=== PATIENT | male | born 1945 | race Caucasian/White ===

== ENCOUNTER 2017-11-06 18:02 | Inpatient (IN) ==
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
[2017-11-06 20:09] LABS: Albumin Level 3.3 gm/dL (3.4-5.0); Albumin/Globulin Ratio 0.7 (1.1-1.8); Anion Gap 10.2 mEq/L (5-15); Basophils # 0.1 K/mm3 (0-0.2); Basophils % 0.6 % (0.1-2.0); Bilirubin,Total 0.3 mg/dL (0.2-1.0); Calcium 9.1 mg/dL (8.5-10.1); Eosinophils # 0.6 K/mm3 (0.0-0.4); Eosinophils % 7.1 % (0.1-12.0); Globulin 4.7 gm/dl (1.3-3.2); Hematocrit 39.6 % (42.0-52.0); Hemoglobin 12.3 g/dL (14.1-18.0); Lymphocytes # 2.2 K/mm3 (0.7-4.5); Lymphocytes % 27.5 K/mm3 (10-50); Mean Corpuscular Hemoglobin 29.8 pg (27.0-31.2); Mean Corpuscular Volume 96.3 fl (80-94); Mean Platelet Volume 8.5 fl (7.4-10.4); Monocytes # 0.5 K/mm3 (0.1-1.0); Monocytes % 6.5 % (1.7-9.3); Neutrophils # 4.6 K/mm3 (1.8-7.8); Neutrophils % 58.4 % (37.0-80.0); Platelet Count 255 K/mm3 (142-424); Potassium 4.2 mmoL/L (3.5-5.1); Red Blood Count 4.12 M/mm3 (4.60-6.20); Red Cell Distribution Width 14.2 % (11.5-17.5); White Blood Count 7.9 K/mm3 (4.8-10.8)
--- NOTE | 2017-11-07 07:26 | Pharmacy Consult Notes ---
[facility] Pharmacy VTE Monitoring - Patient Demographics Admission date: 11/06/17 Report Date: 11/07/17 Time: 07:25 Allergies/Adverse Reactions: Patient Allergies No Known Drug Allergies Allergy (Unknown, Verified 11/06/17 18:27) -- Height: 1.8 m Weight: 102.597 kg Patient Problems: Current Active Problems Diabetic foot infection (Acute) - VTE Risk Labs: VTE Related Lab Results Hgb 12.3 g/dL (14.1-18.0) L 11/06/17 19:13 Hct 39.6 % (42.0-52.0) L 11/06/17 19:13 Plt Count 255 K/mm3 (142-424) 11/06/17 19:13 BUN 20 mg/dL (7-18) H 11/06/17 19:13 Creatinine 1.23 mg/dL (0.70-1.30) 11/06/17 19:13 Estimated Creat Clear 81 mL/min (0-300) 11/06/17 19:13 Was VTE Risk Assessment Performed: Yes VTE Score: 7 VTE Risk Level: Moderate Risk - Prophylaxis VTE Prophylaxis Ordered?: Yes (APPLY TO UNAFFECTED LEG) Types of VTE Prophylaxis: TEDS Knee High Location of Applied Device: Right Leg - VTE Diagnosis Confirmed Treatment or plan recommended: Continue Current Treatment
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
--- NOTE | 2017-11-07 10:31 | Pharmacy Consult Notes ---
- Pharmacy Consult Date: 11/07/17 Time: 10:30 Referring provider: DR. CHOUDHARY Reason for Consult:: VANCOMYCIN DOSING Allergies and ADEs:: Allergies Allergy/AdvReac Type Severity Reaction Status Date / Time No Known Drug Allergies Allergy Unknown -- Verified 11/06/17 18:27 Home Medications:: Home Medications Medication Instructions Recorded Confirmed Type aspirin 81 mg chewable tablet 81 mg PO DAILY 08/26/17 11/07/17 History multivitamin tablet 1 tab PO DAILY 08/26/17 11/07/17 History niacin 500 mg tablet 500 mg PO DAILY 08/26/17 11/07/17 History tamsulosin 0.4 mg capsule 0.4 mg PO DAILY 08/26/17 11/07/17 History Carbidopa/Levodopa [Carbidopa-Levo 1 tab PO HS 11/06/17 11/07/17 History 10-100 mg Odt] Carvedilol [Carvedilol 25mg Tab] 37.5 mg PO BID 11/06/17 11/06/17 History Clopidogrel Bisulfate [Plavix 75mg 75 mg PO DAILY 11/06/17 11/07/17 History Tab] Fenofibrate Nanocrystallized 145 mg PO DAILY 11/06/17 11/06/17 History [Tricor] Fluticasone/Vilanterol [Breo 1 inh INHALATION DAILY 11/06/17 11/07/17 History Ellipta 100-25 Mcg INH] Furosemide [Furosemide 80mg Tab] 80 mg PO DAILY 11/06/17 11/07/17 History Gabapentin [Neurontin 600mg 600 mg PO QID 11/06/17 11/06/17 History tablet] Insulin Glargine,Hum.rec.anlog 35 units SQ HS 11/06/17 11/06/17 History [Insulin Glargine 100 Units/mL 3mL flexpen] Insulin Lispro Protamin/Lispro 45 unit SQ DAILY 11/06/17 11/07/17 History [Humalog Mix 75/25 100 Units/mL 10mL Vial] Isosorbide Mononitrate [Imdur 30mg 30 mg PO DAILY 11/06/17 11/07/17 History ER tablet] Olmesartan Medoxomil 40 mg PO DAILY 11/06/17 11/07/17 History Simvastatin 40 mg PO DAILY 11/06/17 11/07/17 History Height: 1.8 m Weight: 102.597 kg Laboratory Results:: SRCR=1.23 Medical History: Reports:: Chronic Obstructive Pulmonary Disease (COPD), Coronary Artery Disease, Diabetes Mellitus Type 2, Hyperlipidemia, Hypertension , Internal Pacemaker, Myocardial Infarction Denies:: Cancer, Diabetes Mellitus Type 1, MRSA, Seizures Assessment and Plan (1) Cellulitis of left foot Current visit: Yes Status: Acute Category: Medical Code(s): L03.116 - Cellulitis of left lower limb (2) Diabetic foot infection Current visit: Yes Status: Acute Category: Medical Code(s): E11.628 - Type 2 diabetes mellitus with other skin complications; L08.9 - Local infection of the skin and subcutaneous tissue, unspecified (3) Diabetic ulcer of left great toe Current visit: Yes Status: Acute Category: Medical Code(s): E11.621 - Type 2 diabetes mellitus with foot ulcer; L97.529 - Non-pressure chronic ulcer of other part of left foot with unspecified severity - Assessment and plan all Dx Assessment and Plan for all problems:: BASED ON PATIENT FACTORS, RECOMMEND VANCOMYCIN 2 GM IV ONCE, FOLLOWED BY VANCOMYCIN 1750 MG IV Q18H. PHARMACY WILL FOLLOW DAILY AND ADJUST APPROPRIATE.
--- NOTE | 2017-11-07 11:03 | Progress Note ---
[facility] Anesthesia Record Part I Intake, IV Amount: 700 Estimated blood loss (mL): 10 Urine output (mL): 0 Blood Products used (#): none Blood Pressure: 111/53 SaO2: 96 Pulse Rate: 70 Respiratory Rate: 18 Temperature: 98.0 F Patient is:: Drowsy, Nasal O2, Stable Stable to PACU at:: 11:02
--- NOTE | 2017-11-07 11:03 | Operative Note ---
Date of procedure: 11/07/17 Pre-op Diagnosis:: Left foot cellulitis Left hallux osteomyelitis Left hallux, sub 1st metatarsal DM ulcer Post-op Diagnosis:: Left foot cellulitis Left hallux osteomyelitis Left hallux, sub 1st metatarsal DM ulcer Procedure performed:: Left foot incision and drainage Left partial hallux amputation Left sub 1st metatarsal ulcer debridement Surgeon:: Padmini Randle DPM RISK ENGINEER:: Hermes Lopez Anesthesia: LMA Estimated blood loss (mL): 10 Clinical Note:: Left foot cellulitis, left hallux and sub 1st metatarsal DM ulcer, hallux osteomyelitis: There were 3 wounds noted to the distal and plantar hallux, sub-first metatarsal. Utilizing a 15 blade the ulcers were debrided. Purulent drainage noted. Distal tip of hallux ulcer probed to bone. Edema, erythema extending past 1st MPJ. Pain to palpation. Palpable pedal pulses. CFT < 4 seconds. No calf or thigh pain b/l. Radiographs of the left foot taken 11/07/17. X-rays show cortical erosion to distal phalanx consistent with osteomyelitis. We discussed conservative versus surgical treatment options. Conservative treatment options include local wound care, IV antibiotics to manage the cellulitis but surgical intervention recommended to drainage infection and remove infected bone. We discussed surgical intervention for amputation of the left hallux, possible partial 1st metatarsal. Patient understands that there is a chance that the foot may change shape after surgery. Patient also understands that they could have wound healing complications including delayed healing and infection. We discussed that if the wound does not heal, it is possible that they may need a more proximal amputation and could result in further loss of digits, loss of partial foot or loss of leg. We discussed the risks and benefits in great detail. Other surgical risks include: prolonged pain and swelling, further infection requiring oral or IV antibiotics, delay in healing of soft tissue or bone, nerve or blood vessel damage, CRPS/RSD, DVT, anesthesia complications, and even . Operative findings:: Purulence noted to tip of left hallux, where there were 3 ulcers which probed to distal phalanx. Hallux toenail infected and hanging off. Sub 1st metatarsal ulcer, granular wound base with no purulence noted. Post debridement measures 2.1 x 1.1cm and did not probe thru sub q. Operative note:: On this date and time patient was deemed an appropriate surgical candidate. With informed consent signed, the patient was taken to the operating theater. The patient was positioned supine. MAC anesthesia was induced. No tourniquet used. Pre-op right left foot block given with 15 cc 0.5% marcaine plain. Left foot incision and drainage and hallux partial amputation: The left extremity was prepped and draped in normal sterile fashion. Attention was directed to the left hallux where 3 distal wound were noted. Cellulitis is noted extending to the MPJ. Wound probed directly to the bone and purulent drainage was coming from the wound site. A wound culture was taken. A fish mouth incision was mapped out. Utilizing a 15 blade dissection was carried down sharply to the level of the bone around the distal phalanx which was disarticulated from the proximal phalanx. The distal phalanx bone was soft and crumbly and had a slight malodor to it. Portion of it was cut and sent for bone culture and the other part was sent for bone biopsy for pathology. Attention was then directed to the proximal phalanx. Utilizing power resection a small piece of the proximal phalanx head with transected and sent for a clean proximal margin to path and culture. Next 3 L of bacitracin irrigation was used to flush the wound and pulse lavage. The wound was reexplored and no further signs of infection noted. At this point the double-ended rasp was used to smooth down the edges of the bone so that there were no sharp prominences. Bleeding controlled. 3-0 Prolene was used to close skin in an interrupted simple suture fashion. The wounds were cleansed. Left sub 1st metatarsal wound debridement: Attention was directed to the plantar medial aspect of the left 1st metatarsal where an ulcer was noted. Utilizing a 15 blade the callus surrounding the wound was sharply debrided. Utilizing a 15 blade and curette the wound was debrided sharply excisionally through skin into the subcu layer. Fibrotic tissue and biofilm was removed. Good bleeding was noted. Granular base was noted. Post debridement the wound measured 2.1x1.1 cm and did not probe thru subq. It did not probe to deep fasica or bone. No purulence or signs of infection. Betadine dry sterile dressing was then applied to the left foot 15 cc 0.5% marcaine plain was injected at the end of the case. Betadine soaked xeroform, dry sterile dressing was then applied to the left foot. The patient was awoken from anesthesia and transferred to recovery with vital signs stable and neurovascular status intact. Materials: 3-0 Prolene Discharge/Plan: Transfer back to the floor. Patient is to maintain dressing clean dry and intact. Elevate on two pillows. Continue antibiotics. Partial weight bearing to the left lower extremity with DME assistance (walker) . Obtain post op films, left foot, 3 views. Plan for dressing change tomorrow by myself. Tourniquet time (min): 0 Condition: stable Disposition: floor Specimens:: Left foot wound culture Left distal phalanx bone path Left distal phalanx bone culture Left proximal margin bone path Left proximal phalanx bone culture Complications:: None
--- NOTE | 2017-11-07 11:04 | Progress Note ---
[facility] Anesthesia Record Part II Discharge Time: 11:32 Destination: Medical Surgical Department PACU nurse assessment reviewed?: Yes Patient Condition:: Good Anesthesia Complications:: None
[2017-11-08 06:01] LABS: Basophils # 0.1 K/mm3 (0-0.2); Basophils % 0.6 % (0.1-2.0); Eosinophils # 0.1 K/mm3 (0.0-0.4); Eosinophils % 1.6 % (0.1-12.0); Hematocrit 35.1 % (42.0-52.0); Hemoglobin 10.9 g/dL (14.1-18.0); Lymphocytes # 2.1 K/mm3 (0.7-4.5); Lymphocytes % 24.5 K/mm3 (10-50); Mean Corpuscular HGB Conc 31.2 g/dL (31.8-35.4); Mean Corpuscular Hemoglobin 30.5 pg (27.0-31.2); Mean Corpuscular Volume 97.7 fl (80-94); Mean Platelet Volume 8.3 fl (7.4-10.4); Monocytes # 0.7 K/mm3 (0.1-1.0); Monocytes % 7.7 % (1.7-9.3); Neutrophils # 5.7 K/mm3 (1.8-7.8); Neutrophils % 65.6 % (37.0-80.0); Platelet Count 208 K/mm3 (142-424); Red Blood Count 3.59 M/mm3 (4.60-6.20); Red Cell Distribution Width 14.3 % (11.5-17.5); White Blood Count 8.7 K/mm3 (4.8-10.8)
--- NOTE | 2017-11-08 08:42 | Progress Note ---
Internal Medicine - PN: Subj *Date: 11/08/17 *Time: 08:40 Exam Vital signs and Labs for Last 24 Hours: Temp Pulse Resp BP Pulse Ox 97.9 F 70 16 128/74 93 L 11/08/17 08:06 11/08/17 08:06 11/08/17 08:06 11/08/17 08:06 11/08/17 08:06 Laboratory Results - last 24 hr 11/07/17 17:13: POC Glucose 364 H* 11/07/17 20:05: POC Glucose 327 H* 11/07/17 21:10: ESR 83 H 11/07/17 21:10: C-Reactive Protein 2.7 H 11/08/17 05:55: WBC 8.7, RBC 3.59 L, Hgb 10.9 L, Hct 35.1 L, MCV 97.7 H, MCH 30.5, MCHC 31.2 L, RDW 14.3, Plt Count 208, MPV 8.3, Neut % (Auto) 65.6, Lymph % (Auto) 24.5, [place] % (Auto) 7.7, Eos % (Auto) 1.6, Baso % (Auto) 0.6, Neut # ( Auto) 5.7, Lymph # (Auto) 2.1, [place] # (Auto) 0.7, Eos # (Auto) 0.1, Baso # (Auto ) 0.1 11/08/17 06:23: POC Glucose 218 H I & O for Last 24 hours: Intake & Output 11/05/17 11/06/17 11/07/17 11/08/17 11:59 11:59 11:59 11:59 Intake Total 1750 / 1750 1965 / 1965 Output Total 820 / 820 1500 / 1500 Balance 930 / 930 465 / 465 Weight 226 lb 3 oz Microbiology Reports for the Last 24 Hours: Microbiology 11/07/17 Unknown Toe,Left Great Gram Stain - Final 11/07/17 Unknown Toe,Left Great Wound Culture - Preliminary Gram Positive Cocci 11/07/17 07:30 Foot,Left Gram Stain - Final 11/07/17 07:30 Foot,Left Wound Culture - Preliminary Gram Positive Cocci 11/06/17 Unknown Foot,Left Gram Stain - Final 11/06/17 Unknown Foot,Left Wound Culture - Preliminary Gram Positive Cocci 11/06/17 19:31 Blood Blood Culture - Preliminary NO GROWTH AFTER 24 HOURS - Constitutional no acute distress - *Routine HEENT Exam Head: Present: normocephalic Eye: Present: PERRL ENT: Present: mucous membranes moist - *Routine Respiratory Exam Present: CTA bilaterally - *Routine Cardiovascular Exam Present: RRR Comments: pacemaker - *Routine Abdominal Exam Present: soft, normoactive bowel sounds - *Routine Extremities Exam Comments: Dressing to left foot - *Routine Skin Exam Comments: Dressing to left foot - *Routine Neurological Exam Present: alert, oriented X3, CN II-XII intact - Routine Psychiatric Exam Present: normal affect, normal thought process Assessment and Plan (1) Cellulitis of left foot Current visit: Yes Status: Acute Category: Medical Code(s): L03.116 - Cellulitis of left lower limb (2) Diabetic foot infection Current visit: Yes Status: Acute Category: Medical Code(s): E11.628 - Type 2 diabetes mellitus with other skin complications; L08.9 - Local infection of the skin and subcutaneous tissue, unspecified (3) Diabetic ulcer of left great toe Current visit: Yes Status: Acute Category: Medical Code(s): E11.621 - Type 2 diabetes mellitus with foot ulcer; L97.529 - Non-pressure chronic ulcer of other part of left foot with unspecified severity - Assessment and plan all Dx Assessment and Plan for all problems:: Waiting for C&S wants resulted patient will be going home with home health for dressing and IV antibiotics
--- NOTE | 2017-11-08 09:59 | Progress Note ---
Subjective Date: 11/08/17 Time: 08:45 Principal diagnosis: Left osteomyelitis, cellulitis Interval history: Pain is resting comfortably in bed. He denies pain. He denies N/V, F/C, SOB/ CP. PN: Obj Ex Vital signs: Temp Pulse Resp BP Pulse Ox 97.9 F 70 16 128/74 93 L 11/08/17 08:06 11/08/17 08:06 11/08/17 08:06 11/08/17 08:06 11/08/17 08:43 - Constitutional no acute distress - Detailed Lower Extremity Exam Foot/Toes: Left amputation (left partial hallux amp), Left erythema (improving) , Left swelling (improving) Comments: Dressing C/D/I, no strike thru noted. Dressing removed. Sutures intact to amputation site. Sub 1st met ulcer evaluated. Granular base was noted. The wound measured 2.1x1.1 cm and did not probe thru subq. It did not probe to deep fasica or bone. No purulence or signs of infection. Saline used to cleanse wound, betadine used to dry it. Xeroform dry sterile dressing was then applied to the left foot. No pain to palpation. No calf or thigh pain b/l. Skin temp less warm on the left. Decreased light touch sensation, back to baseline. Progress Note: A&P (1) Cellulitis of left foot Status: Acute Current Visit: Yes (2) Diabetic foot infection Status: Acute Current Visit: Yes (3) Diabetic ulcer of left great toe Status: Acute Current Visit: Yes (4) Chronic osteomyelitis of toe of left foot Status: Acute Current Visit: Yes Assessment and Plan for All Diagnoses:: S/p left partial hallux amputation, debridement of left 1st sub metatarsal ulcer on 11/07/17: POD # 1 Left hallux OM, sub 1st met DM ulcer: Dressing removed. Sutures intact to amputation site. Sub 1st met ulcer evaluated. Granular base was noted. The wound measured 2.1x1.1 cm and did not probe thru subq. It did not probe to deep fasica or bone. No purulence or signs of infection. Saline used to cleanse wound, betadine used to dry it. Xeroform dry sterile dressing was then applied to the left foot. Discharge/Plan: 1. Maintain dressing clean dry and intact to left foot 2. PWB to left heel in flat post op shoe with walker (patient has walker) 3. Elevate on one pillow 4. Continue IV Abx-Vanco, Clinda x 4 weeks 5. Plan for dressing change 11/13/[address] Randle @ [id number]
--- NOTE | 2017-11-08 10:44 | Pharmacy Consult Notes ---
- Pharmacy Consult Date: 11/08/17 Time: 10:43 Referring provider: DR. CHOUDHARY Reason for Consult:: VANCOMYCIN TROUGH LEVEL Allergies and ADEs:: Allergies Allergy/AdvReac Type Severity Reaction Status Date / Time No Known Drug Allergies Allergy Unknown -- Verified 11/06/17 18:27 Home Medications:: Home Medications Medication Instructions Recorded Confirmed Type aspirin 81 mg chewable tablet 81 mg PO DAILY 08/26/17 11/07/17 History multivitamin tablet 1 tab PO DAILY 08/26/17 11/07/17 History tamsulosin 0.4 mg capsule 0.4 mg PO DAILY 08/26/17 11/07/17 History Carbidopa/Levodopa [Carbidopa-Levo 1 tab PO HS 11/06/17 11/07/17 History 10-100 mg Odt] Carvedilol [Carvedilol 25mg Tab] 37.5 mg PO BID 11/06/17 11/06/17 History Clopidogrel Bisulfate [Plavix 75mg 75 mg PO DAILY 11/06/17 11/07/17 History Tab] Fenofibrate Nanocrystallized 145 mg PO DAILY 11/06/17 11/06/17 History [Tricor] Fluticasone/Vilanterol [Breo 1 inh INHALATION DAILY 11/06/17 11/07/17 History Ellipta 100-25 Mcg INH] Furosemide [Furosemide 80mg Tab] 80 mg PO DAILYP PRN 11/06/17 11/07/17 History Insulin Glargine,Hum.rec.anlog 35 units SQ HS 11/06/17 11/06/17 History [Insulin Glargine 100 Units/mL 3mL flexpen] Insulin Lispro Protamin/Lispro 45 unit SQ DAILY 11/06/17 11/07/17 History [Humalog Mix 75/25 100 Units/mL 10mL Vial] Isosorbide Mononitrate [Imdur 30mg 30 mg PO DAILY 11/06/17 11/07/17 History ER tablet] Olmesartan Medoxomil 40 mg PO DAILY 11/06/17 11/07/17 History Simvastatin 40 mg PO DAILY 11/06/17 11/07/17 History Height: 1.8 m Weight: 102.597 kg Laboratory Results:: Laboratory Results - last 24 hr 11/07/17 17:13: POC Glucose 364 H* 11/07/17 20:05: POC Glucose 327 H* 11/07/17 21:10: ESR 83 H 11/07/17 21:10: C-Reactive Protein 2.7 H 11/08/17 05:55: WBC 8.7, RBC 3.59 L, Hgb 10.9 L, Hct 35.1 L, MCV 97.7 H, MCH 30.5, MCHC 31.2 L, RDW 14.3, Plt Count 208, MPV 8.3, Neut % (Auto) 65.6, Lymph % (Auto) 24.5, [place] % (Auto) 7.7, Eos % (Auto) 1.6, Baso % (Auto) 0.6, Neut # ( Auto) 5.7, Lymph # (Auto) 2.1, [place] # (Auto) 0.7, Eos # (Auto) 0.1, Baso # (Auto ) 0.1 11/08/17 06:23: POC Glucose 218 H 11/08/17 08:25: Vancomycin Trough 14.6 Medical History: Reports:: Chronic Obstructive Pulmonary Disease (COPD), Coronary Artery Disease, Diabetes Mellitus Type 2, Hyperlipidemia, Hypertension , Internal Pacemaker, Myocardial Infarction Denies:: Cancer, Diabetes Mellitus Type 1, MRSA, Seizures Assessment and Plan (1) Cellulitis of left foot Current visit: Yes Status: Acute Category: Medical Code(s): L03.116 - Cellulitis of left lower limb (2) Diabetic foot infection Current visit: Yes Status: Acute Category: Medical Code(s): E11.628 - Type 2 diabetes mellitus with other skin complications; L08.9 - Local infection of the skin and subcutaneous tissue, unspecified (3) Diabetic ulcer of left great toe Current visit: Yes Status: Acute Category: Medical Code(s): E11.621 - Type 2 diabetes mellitus with foot ulcer; L97.529 - Non-pressure chronic ulcer of other part of left foot with unspecified severity (4) Chronic osteomyelitis of toe of left foot Current visit: Yes Status: Acute Category: Medical Code(s): M86.672 - Other chronic osteomyelitis, left ankle and foot - Assessment and plan all Dx Assessment and Plan for all problems:: BASED ON VANCOMYCIN TROUGH LEVEL AND PATIENT FACTORS, WOULD RECOMMEND CONTINUING VANCOMYCIN 1750 MG IV Q18H. SINCE PATIENT IS BEING DISCHARGED TO A CORRECTION, PATIENT WILL BE DISCHARGED ON VANCOMYCIN 2 GM IV Q24H.
[2017-11-08 11:38] VITALS: BP 141/73
--- NOTE | 2017-11-08 13:45 | Discharge Summary ---
General - General Admission date: 11/06/17 Discharge date: 11/08/17 HPI HPI: Mr. Servin is a 71-year-old DM male who presented to the emergency room from Dr Nugent's office 11/06/17, where he presented with left toe pain, swelling and redness, onset approximately 2 weeks ago, gradually getting worse. Patient initially thought that he had an ingrown toenail, but the pain and redness getting worse. Patient unable to bear weight on the left foot any longer. He has noticed purulence drainage. Hospital Course Hospital Course: Will dc home with home health for dressing changes and iv antibotics. per [facility] note:S/p left partial hallux amputation, debridement of left 1st sub metatarsal ulcer on 11/07/17: POD # 1 Left hallux OM, sub 1st met DM ulcer: Dressing removed. Sutures intact to amputation site. Sub 1st met ulcer evaluated. Granular base was noted. The wound measured 2.1x1.1 cm and did not probe thru subq. It did not probe to deep fasica or bone. No purulence or signs of infection. Saline used to cleanse wound, betadine used to dry it. Xeroform dry sterile dressing was then applied to the left foot. Discharge/Plan: 1. Maintain dressing clean dry and intact to left foot 2. PWB to left heel in flat post op shoe with walker (patient has walker) 3. Elevate on one pillow 4. Continue IV Abx-Vanco, Clinda x 4 weeks 5. Plan for dressing change 11/13/[address] Randle @ 0930 Objective Vital signs: Temp Pulse Resp BP Pulse Ox 98.1 F 70 18 141/73 90 L 11/08/17 11:37 11/08/17 11:37 11/08/17 11:37 11/08/17 11:37 11/08/17 11:37 no acute distress - *Routine HEENT Exam Head: Present: normocephalic Eye: Present: PERRL ENT: Present: mucous membranes moist - *Routine Respiratory Exam Present: CTA bilaterally - *Routine Cardiovascular Exam Present: RRR - *Routine Abdominal Exam Present: soft, normoactive bowel sounds - Routine Back/Spine/Pelvis Exam Back/Spine: Present: CVA tenderness - *Routine Skin Exam Comments: dressing to left foot - *Routine Neurological Exam Present: alert, oriented X3, CN II-XII intact - Routine Psychiatric Exam Present: normal affect, normal thought process Results Labs on day of discharge: Labs from last 24 hours 11/08/17 11/08/17 11/08/17 08:25 06:23 05:55 WBC 8.7 RBC 3.59 L Hgb 10.9 L Hct 35.1 L MCV 97.7 H MCH 30.5 MCHC 31.2 L RDW 14.3 Plt Count 208 MPV 8.3 Neut % (Auto) 65.6 Lymph % (Auto) 24.5 [place] % (Auto) 7.7 Eos % (Auto) 1.6 Baso % (Auto) 0.6 Neut # (Auto) 5.7 Lymph # (Auto) 2.1 [place] # (Auto) 0.7 Eos # (Auto) 0.1 Baso # (Auto) 0.1 ESR POC Glucose 218 H C-Reactive Protein Vancomycin Trough 14.6 11/07/17 11/07/17 11/07/17 21:10 21:10 20:05 WBC RBC Hgb Hct MCV MCH MCHC RDW Plt Count MPV Neut % (Auto) Lymph % (Auto) [place] % (Auto) Eos % (Auto) Baso % (Auto) Neut # (Auto) Lymph # (Auto) [place] # (Auto) Eos # (Auto) Baso # (Auto) ESR 83 H POC Glucose 327 H* C-Reactive Protein 2.7 H Vancomycin Trough 11/07/17 17:13 WBC RBC Hgb Hct MCV MCH MCHC RDW Plt Count MPV Neut % (Auto) Lymph % (Auto) [place] % (Auto) Eos % (Auto) Baso % (Auto) Neut # (Auto) Lymph # (Auto) [place] # (Auto) Eos # (Auto) Baso # (Auto) ESR POC Glucose 364 H* C-Reactive Protein Vancomycin Trough Preliminary micro results at discharge 11/07/17 Unknown Surgical Biopsy Culture - Preliminary Toe,Left Great NO GROWTH AFTER 24 HOURS 11/07/17 Unknown Surgical Biopsy Culture - Preliminary Toe,Left Great NO GROWTH AFTER 24 HOURS 11/07/17 Unknown Wound Culture - Preliminary Toe,Left Great Gram Positive Cocci 11/07/17 07:30 Wound Culture - Preliminary Foot,Left Gram Positive Cocci 11/06/17 Unknown Wound Culture - Preliminary Foot,Left Gram Positive Cocci 11/06/17 19:31 Blood Culture - Preliminary Blood NO GROWTH AFTER 24 HOURS DS: Diagnosis - Discharge Diagnosis (1) Cellulitis of left foot Status: Acute (2) Diabetic foot infection Status: Acute (3) Diabetic ulcer of left great toe Status: Acute Discharge Plan - Patient Discharge Instructions ACTIVITY: Continue current activity DIET: continue same diet Patient Instructions: DI for Laceration Repair - Follow up Plan Follow up with: Echo Horner APRN [Primary Care Provider] - 1 week Padmini Randle DPM [Physician] - 1 week Disposition: Home, Self-[facility] Medications: Home Medications Medication Instructions Recorded Confirmed Type aspirin 81 mg chewable tablet 81 mg PO DAILY 08/26/17 11/07/17 History multivitamin tablet 1 tab PO DAILY 08/26/17 11/07/17 History tamsulosin 0.4 mg capsule 0.4 mg PO DAILY 08/26/17 11/07/17 History Carbidopa/Levodopa [Carbidopa-Levo 1 tab PO HS 11/06/17 11/07/17 History 10-100 mg Odt] Carvedilol [Carvedilol 25mg Tab] 37.5 mg PO BID 11/06/17 11/06/17 History Clopidogrel Bisulfate [Plavix 75mg 75 mg PO DAILY 11/06/17 11/07/17 History Tab] Fenofibrate Nanocrystallized 145 mg PO DAILY 11/06/17 11/06/17 History [Tricor] Fluticasone/Vilanterol [Breo 1 inh INHALATION DAILY 11/06/17 11/07/17 History Ellipta 100-25 Mcg INH] Furosemide [Furosemide 80mg Tab] 80 mg PO DAILYP PRN 11/06/17 11/07/17 History Insulin Glargine,Hum.rec.anlog 35 units SQ HS 11/06/17 11/06/17 History [Insulin Glargine 100 Units/mL 3mL flexpen] Insulin Lispro Protamin/Lispro 45 unit SQ DAILY 11/06/17 11/07/17 History [Humalog Mix 75/25 100 Units/mL 10mL Vial] Isosorbide Mononitrate [Imdur 30mg 30 mg PO DAILY 11/06/17 11/07/17 History ER tablet] Olmesartan Medoxomil 40 mg PO DAILY 11/06/17 11/07/17 History Simvastatin 40 mg PO DAILY 11/06/17 11/07/17 History Prescriptions/Medication Reconciliation: New Clindamycin HCl [Clindamycin 300mg Cap] 600 mg PO TID 28 Days capsule Continue tamsulosin 0.4 mg capsule 0.4 mg PO DAILY aspirin 81 mg chewable tablet 81 mg PO DAILY gabapentin 600 mg tablet 600 mg PO QID #120 tab multivitamin tablet 1 tab PO DAILY Clopidogrel Bisulfate [Plavix 75mg Tab] 75 mg PO DAILY Fenofibrate Nanocrystallized [Tricor] 145 mg PO DAILY Carbidopa/Levodopa [Carbidopa-Levo 10-100 mg Odt] 1 tab PO HS Simvastatin 40 mg PO DAILY Furosemide [Furosemide 80mg Tab] 80 mg PO DAILYP PRN PRN Reason: FLUID Carvedilol [Carvedilol 25mg Tab] 37.5 mg PO BID Olmesartan Medoxomil 40 mg PO DAILY Isosorbide Mononitrate [Imdur 30mg ER tablet] 30 mg PO DAILY Insulin Glargine,Hum.rec.anlog [Insulin Glargine 100 Units/mL 3mL flexpen] 35 units SQ HS Fluticasone/Vilanterol [Breo Ellipta 100-25 Mcg INH] 1 inh INHALATION DAILY Insulin Lispro Protamin/Lispro [Humalog Mix 75/25 100 Units/mL 10mL Vial] 45 unit SQ DAILY No Action pen needle, diabetic 31 gauge x 12/18" See Dose Instructions .ROUTE .MEDSUPPLY #100 each
== END 2017-11-08 15:20 | disposition home or self-care (01) ==
LOC: ER 18:02 → 2ND 18:02 → OBSVTOIN 19:15 → 2ND 19:30
PROVIDERS: ADMIT Emergency Medicine; ATTEND Emergency Medicine

== ENCOUNTER → 2017-11-12 13:19 | Outpatient (REF) | payer MEDICARE, MEDICAID, SELFPAY | LOC: LAB 13:19 | PROVIDERS: Visit Provider Emergency Medicine | DX: Z45.2 Encounter for adjustment and management of vascular access device (principal); Z51.81 Encounter for therapeutic drug level monitoring | CPT/HCPCS: 80202 ==

== ENCOUNTER → 2017-11-13 16:35 | Outpatient (REF) | payer MEDICARE, MEDICAID, SELFPAY ==
[2017-11-13 16:53] LABS: Basophils # 0.1 K/mm3 (0-0.2); Eosinophils # 0.7 K/mm3 (0.0-0.4); Eosinophils % 9.3 % (0.1-12.0); Hematocrit 38.4 % (42.0-52.0); Lymphocytes # 2.4 K/mm3 (0.7-4.5); Lymphocytes % 31.9 K/mm3 (10-50); Mean Corpuscular HGB Conc 31.2 g/dL (31.8-35.4); Mean Corpuscular Hemoglobin 30.1 pg (27.0-31.2); Mean Corpuscular Volume 96.4 fl (80-94); Mean Platelet Volume 8.4 fl (7.4-10.4); Monocytes # 0.5 K/mm3 (0.1-1.0); Monocytes % 6.8 % (1.7-9.3); Neutrophils # 3.8 K/mm3 (1.8-7.8); Platelet Count 255 K/mm3 (142-424); Red Blood Count 3.98 M/mm3 (4.60-6.20); Red Cell Distribution Width 14.3 % (11.5-17.5); White Blood Count 7.5 K/mm3 (4.8-10.8)
[2017-11-13 17:06] LABS: Alanine Aminotransferase 18 U/L (12-78); Albumin Level 3.1 gm/dL (3.4-5.0); Albumin/Globulin Ratio 0.8 (1.1-1.8); Alkaline Phosphatase 46 U/L (46-116); Anion Gap 8.2 mEq/L (5-15); Aspartate Amino Transferase 26 U/L (15-37); Bilirubin,Total 0.3 mg/dL (0.2-1.0); Blood Urea Nitrogen 21 mg/dL (7-18); Carbon Dioxide 34 mmol/L (21.0-32.0); Chloride 104 mmol/L (98-107); Creatinine,Serum 1.17 mg/dL (0.70-1.30); Estimated Glomerular Filt Rate 62 ml/min (>60); GFR (African American) 75 ML/MIN (>60); Globulin 4.1 gm/dl (1.3-3.2); Glucose 215 mg/dL (74-106); Potassium 4.2 mmoL/L (3.5-5.1); Sodium 142 mmol/L (136-145); Total Protein,Serum 7.2 gm/dL (6.4-8.2)
[2017-11-13 17:14] LABS: Calcium 8.8 mg/dL (8.5-10.1)
[2017-11-13 18:47] LABS: Erythrocyte Sedimentation Rate 58 mm/hr (0-20)
== END ==
LOC: LAB 16:35
PROVIDERS: Visit Provider Emergency Medicine
DX: E11.621 Type 2 diabetes mellitus with foot ulcer (principal)
CPT/HCPCS: 80053; 85025; 85651

== ENCOUNTER → 2017-11-19 14:21 | Outpatient (REF) | payer MEDICARE, MEDICAID, SELFPAY ==
[2017-11-19 14:29] LABS: Basophils % 0.5 % (0.1-2.0); Eosinophils % 0.1 % (0.1-12.0); Hemoglobin 12.7 g/dL (14.1-18.0); Lymphocytes # 1.1 K/mm3 (0.7-4.5); Lymphocytes % 18.2 K/mm3 (10-50); Mean Corpuscular HGB Conc 31.9 g/dL (31.8-35.4); Mean Corpuscular Hemoglobin 30.3 pg (27.0-31.2); Mean Corpuscular Volume 95.1 fl (80-94); Mean Platelet Volume 8.8 fl (7.4-10.4); Monocytes # 0.5 K/mm3 (0.1-1.0); Monocytes % 8.4 % (1.7-9.3); Neutrophils # 4.6 K/mm3 (1.8-7.8); Neutrophils % 72.9 % (37.0-80.0); Platelet Count 216 K/mm3 (142-424); Red Blood Count 4.21 M/mm3 (4.60-6.20); Red Cell Distribution Width 14.7 % (11.5-17.5); White Blood Count 6.3 K/mm3 (4.8-10.8)
[2017-11-19 14:45] LABS: Alanine Aminotransferase 19 U/L (12-78); Albumin Level 3.3 gm/dL (3.4-5.0); Albumin/Globulin Ratio 0.8 (1.1-1.8); Alkaline Phosphatase 41 U/L (46-116); Anion Gap 14.5 mEq/L (5-15); Aspartate Amino Transferase 24 U/L (15-37); Bilirubin,Total 0.4 mg/dL (0.2-1.0); Blood Urea Nitrogen 22 mg/dL (7-18); Calcium 8.9 mg/dL (8.5-10.1); Carbon Dioxide 28 mmol/L (21.0-32.0); Chloride 95 mmol/L (98-107); Creatinine,Serum 1.18 mg/dL (0.70-1.30); Estimated Glomerular Filt Rate 61 ml/min (>60); GFR (African American) 74 ML/MIN (>60); Globulin 4.2 gm/dl (1.3-3.2); Glucose 245 mg/dL (74-106); Potassium 4.5 mmoL/L (3.5-5.1); Sodium 133 mmol/L (136-145); Total Protein,Serum 7.5 gm/dL (6.4-8.2)
[2017-11-19 20:29] LABS: Erythrocyte Sedimentation Rate 9 mm/hr (0-20)
== END ==
LOC: LAB 14:21
PROVIDERS: Visit Provider Emergency Medicine
DX: Z45.2 Encounter for adjustment and management of vascular access device (principal)
CPT/HCPCS: 80053; 80202; 85025; 85651

== ENCOUNTER 2017-11-27 16:15 | Observation (INO) ==
[2017-11-27 16:59] LABS: Basophils # 0.1 K/mm3 (0-0.2); Basophils % 0.8 % (0.1-2.0); Eosinophils # 0.8 K/mm3 (0.0-0.4); Eosinophils % 6.6 % (0.1-12.0); Hematocrit 42.9 % (42.0-52.0); Hemoglobin 13.7 g/dL (14.1-18.0); Lymphocytes # 3.1 K/mm3 (0.7-4.5); Lymphocytes % 26.7 K/mm3 (10-50); Mean Corpuscular Hemoglobin 30.6 pg (27.0-31.2); Mean Corpuscular Volume 95.6 fl (80-94); Mean Platelet Volume 8.2 fl (7.4-10.4); Monocytes # 0.6 K/mm3 (0.1-1.0); Monocytes % 5.6 % (1.7-9.3); Neutrophils # 6.9 K/mm3 (1.8-7.8); Neutrophils % 60.3 % (37.0-80.0); Platelet Count 229 K/mm3 (142-424); Red Blood Count 4.48 M/mm3 (4.60-6.20); Red Cell Distribution Width 14.2 % (11.5-17.5); White Blood Count 11.4 K/mm3 (4.8-10.8)
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
[2017-11-27 17:18] LABS: Alanine Aminotransferase 24 U/L (12-78); Albumin Level 3.5 gm/dL (3.4-5.0); Albumin/Globulin Ratio 0.9 (1.1-1.8); Alkaline Phosphatase 44 U/L (46-116); Anion Gap 10.1 mEq/L (5-15); Aspartate Amino Transferase 20 U/L (15-37); Bilirubin,Total 0.5 mg/dL (0.2-1.0); Blood Urea Nitrogen 39 mg/dL (7-18); Calcium 9.2 mg/dL (8.5-10.1); Carbon Dioxide 37 mmol/L (21.0-32.0); Chloride 98 mmol/L (98-107); Creatine Kinase 22 U/L (39-308); Globulin 3.8 gm/dl (1.3-3.2); Glucose 272 mg/dL (74-106); Potassium 4.1 mmoL/L (3.5-5.1); Sodium 141 mmol/L (136-145); Total Protein,Serum 7.3 gm/dL (6.4-8.2)
--- NOTE | 2017-11-28 07:21 | Pharmacy Consult Notes ---
[facility] Pharmacy VTE Monitoring - Patient Demographics Admission date: 11/27/17 Report Date: 11/28/17 Time: 07:21 Allergies/Adverse Reactions: Patient Allergies No Known Drug Allergies Allergy (Unknown, Verified 11/27/17 13:43) -- Height: 1.8 m Weight: 97.692 kg Patient Problems: Current Active Problems COPD exacerbation (Acute) Acute bronchitis (Acute) - VTE Risk Labs: VTE Related Lab Results Hgb 13.7 g/dL (14.1-18.0) L 11/27/17 16:30 Hct 42.9 % (42.0-52.0) 11/27/17 16:30 Plt Count 229 K/mm3 (142-424) 11/27/17 16:30 BUN 39 mg/dL (7-18) H 11/27/17 16:30 Creatinine 1.46 mg/dL (0.70-1.30) H 11/27/17 16:30 Estimated Creat Clear 67 mL/min (0-300) 11/27/17 16:30 Was VTE Risk Assessment Performed: Yes VTE Score: 4 VTE Risk Level: Low Risk - Prophylaxis VTE Prophylaxis Ordered?: Yes Types of VTE Prophylaxis: TEDS Knee High Location of Applied Device: Bilateral Lower Extremeties - VTE Diagnosis Confirmed Treatment or plan recommended: Continue Current Treatment
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
[2017-11-28 10:15] LABS: Anion Gap 11.8 mEq/L (5-15); Potassium 4.8 mmoL/L (3.5-5.1)
--- NOTE | 2017-11-28 11:13 | Pharmacy Consult Notes ---
- Pharmacy Consult Date: 11/28/17 Time: 11:11 Referring provider: DR. CHOUDHARY Reason for Consult:: VANCOMYCIN DOSING Allergies and ADEs:: Allergies Allergy/AdvReac Type Severity Reaction Status Date / Time No Known Drug Allergies Allergy Unknown -- Verified 11/27/17 13:43 Home Medications:: Home Medications Medication Instructions Recorded Confirmed Type aspirin 81 mg chewable tablet 81 mg PO DAILY 08/26/17 11/27/17 History multivitamin tablet 1 tab PO DAILY 08/26/17 11/27/17 History tamsulosin 0.4 mg capsule 0.4 mg PO DAILY 08/26/17 11/27/17 History Carbidopa/Levodopa [Carbidopa-Levo 1 tab PO HS 11/06/17 11/27/17 History 10-100 mg Odt] Fenofibrate Nanocrystallized 145 mg PO DAILY 11/06/17 11/27/17 History [Tricor] Fluticasone/Vilanterol [Breo 1 inh INHALATION DAILY 11/06/17 11/27/17 History Ellipta 100-25 Mcg INH] Furosemide [Furosemide 80mg Tab] 80 mg PO DAILYP PRN 11/06/17 11/27/17 History Isosorbide Mononitrate [Imdur 30mg 30 mg PO DAILY 11/06/17 11/27/17 History ER tablet] Olmesartan Medoxomil 40 mg PO DAILY 11/06/17 11/27/17 History Simvastatin 40 mg PO DAILY 11/06/17 11/27/17 History Clindamycin HCl [Clindamycin 300mg 600 mg PO TID 11/13/17 11/27/17 History Cap] Ferrous Sulfate/Vit C/Folic AC 1 each PO DAILY 11/13/17 11/27/17 History [Folitab 500 Caplet] Insulin Lispro [Humalog] 45 unit SQ DAILY 11/13/17 11/27/17 History Niacin (Inositol Niacinate) 500 mg PO DAILY 11/13/17 11/27/17 History [Niacin 500 mg Capsule] Triamcinolone Acetonide [Kenalog 1 applic TOPICAL BID 11/18/17 11/27/17 History 0.1% cream 80gm tube] insulin glargine (U-100) 100 35 unit SUB-Q QHS ml 11/21/17 11/27/17 History unit/mL (3 mL) subcutaneous pen Amoxicillin/Potassium Clav 1 tab PO Q12H 11/27/17 11/27/17 History [Augmentin 875-125 Tablet] Carvedilol [Carvedilol 6.25mg Tab] 6.25 mg PO BID 11/27/17 11/27/17 History predniSONE [Prednisone 50mg Tab] 50 mg PO DAILY 11/27/17 11/27/17 History Height: 1.8 m Weight: 97.692 kg Laboratory Results:: Laboratory Results - last 24 hr 11/27/17 16:30: WBC 11.4 H, RBC 4.48 L, Hgb 13.7 L, Hct 42.9, MCV 95.6 H, MCH 30.6, MCHC 32.0, RDW 14.2, Plt Count 229, MPV 8.2, Neut % (Auto) 60.3, Lymph % ( Auto) 26.7, [place] % (Auto) 5.6, Eos % (Auto) 6.6, Baso % (Auto) 0.8, Neut # (Auto ) 6.9, Lymph # (Auto) 3.1, [place] # (Auto) 0.6, Eos # (Auto) 0.8 H, Baso # (Auto) 0.1 11/27/17 16:30: Sodium 141, Potassium 4.1, Chloride 98, Carbon Dioxide 37 H, Anion Gap 10.1, BUN 39 H, Creatinine 1.46 H, Estimated Creat Clear 67, Estimated GFR 48 L, Est GFR ( Amer) 58 L, Glucose 272 H, Calcium 9.2, Total Bilirubin 0.5, AST 20, ALT 24, Alkaline Phosphatase 44 L, Total Creatine Kinase 22 L, CK-MB (CK-2) 1.0 D, CK-MB (CK-2) Rel Index 4.5 H, Troponin I < 0.02, Total Protein 7.3, Albumin 3.5, Globulin 3.8 H, Albumin/Globulin Ratio 0.9 L 11/27/17 16:30: Lactic Acid 2.1 H 11/27/17 20:40: Lactic Acid Fup @ 4Hr 1.0 11/27/17 21:22: POC Glucose 327 H* 11/28/17 09:58: Vancomycin Trough 28.3 H 11/28/17 09:58: Sodium 136, Potassium 4.8, Chloride 97 L, Carbon Dioxide 32, Anion Gap 11.8, BUN 46 H, Creatinine 1.90 H D, Estimated Creat Clear 49, Estimated GFR 35 L, Est GFR ( Amer) 42 L D, Glucose 395 H D Medical History: Reports:: Chronic Obstructive Pulmonary Disease (COPD), Coronary Artery Disease, Diabetes Mellitus Type 2, Hyperlipidemia, Hypertension , Internal Pacemaker, Myocardial Infarction Denies:: Cancer, Diabetes Mellitus Type 1, MRSA, Seizures Assessment and Plan - Assessment and plan all Dx Assessment and Plan for all problems:: PATIENT HAS BEEN RECEIVING VANCOMYCIN 1,500MG Q24H AN OUTPATIENT. BASED ON PATIENT FACTORS AND TROUGH LEVEL OF 28.3 THIS MORNING, RECOMMEND HOLDING TODAY' S DOSE OF VANCOMYCIN AND RESTARTING TOMORROW AT 1,000MG Q24H.
--- NOTE | 2017-11-29 08:43 | Discharge Summary ---
General - General Admission date:: 11/27/17 Discharge date: 11/29/17 HPI HPI: 72-year-old male presented to the office yesterday complaints of shortness of breath, wheezing, and low oxygen saturation. When patient arrived in primary care office O2 saturation was 74%. Patient is on home O2 dependent. Patient was to the ER for evaluation. Patient was admitted for COPD exp placed on IV steroids, duo nebs, and antibiotics. 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 Hospital Course Hospital Course: Chest x ray:IMPRESSION: Postsurgical change. No change with no acute finding Patient states he has home O2, nebulizer, and home health for ulcer on foot. Patient states he would prefer to go home. Will continue Zithromax at home and slow taper of steroids, is to call office for instructions for insulin to cover while on steroids Objective Vital signs: Temp Pulse Resp BP Pulse Ox 97.8 F 77 20 149/79 97 11/29/17 07:23 11/29/17 07:23 11/29/17 07:23 11/29/17 07:23 11/29/17 07:23 no acute distress - *Routine HEENT Exam Head: Present: normocephalic Eye: Present: PERRL ENT: Present: mucous membranes moist - *Routine Neck Exam Present: supple, full ROM - *Routine Respiratory Exam Present: wheezes - *Routine Cardiovascular Exam Present: RRR Comments: Pacemaker - *Routine Abdominal Exam Present: soft, normoactive bowel sounds - *Routine Extremities Exam Present: full ROM Comments: Dressing to left foot - *Routine Skin Exam Comments: Dressing to left foot - *Routine Neurological Exam Present: alert, oriented X3, CN II-XII intact - Routine Psychiatric Exam Present: normal affect, normal thought process Results Labs on day of discharge: Labs from last 24 hours 11/29/17 11/28/17 11/28/17 06:46 20:55 16:55 Sodium Potassium Chloride Carbon Dioxide Anion Gap BUN Creatinine Estimated Creat Clear Estimated GFR Est GFR ( Amer) Glucose POC Glucose 271 H 492 H* Random Glucose 470 H Vancomycin Trough 11/28/17 11/28/17 11/28/17 16:41 11:32 09:58 Sodium 136 Potassium 4.8 Chloride 97 L Carbon Dioxide 32 Anion Gap 11.8 BUN 46 H Creatinine 1.90 H D Estimated Creat Clear 49 Estimated GFR 35 L Est GFR ( Amer) 42 L D Glucose 395 H D POC Glucose 503 H* 467 H* Random Glucose Vancomycin Trough 11/28/17 11/28/17 09:58 06:15 Sodium Potassium Chloride Carbon Dioxide Anion Gap BUN Creatinine Estimated Creat Clear Estimated GFR Est GFR ( Amer) Glucose POC Glucose 329 H* Random Glucose Vancomycin Trough 28.3 H Preliminary micro results at discharge 11/27/17 16:30 Blood Culture - Preliminary Blood NO GROWTH AFTER 24 HOURS 11/27/17 16:30 Blood Culture - Preliminary Blood NO GROWTH AFTER 24 HOURS - Additional Comments Rounded with Dr. Nugent all orders per Raffi Discharge Plan - Patient Discharge Instructions ACTIVITY: Continue current activity DIET: continue same diet - Follow up Plan Follow up with: Echo Horner APRN [Primary Care Provider] - 12/04/17 Disposition: Home, Self-Senior Living Medications: Home Medications Medication Instructions Recorded Confirmed Type aspirin 81 mg chewable tablet 81 mg PO DAILY 08/26/17 11/27/17 History multivitamin tablet 1 tab PO DAILY 08/26/17 11/27/17 History tamsulosin 0.4 mg capsule 0.4 mg PO DAILY 08/26/17 11/27/17 History Carbidopa/Levodopa [Carbidopa-Levo 1 tab PO HS 11/06/17 11/27/17 History 10-100 mg Odt] Fenofibrate Nanocrystallized 145 mg PO DAILY 11/06/17 11/27/17 History [Tricor] Fluticasone/Vilanterol [Breo 1 inh INHALATION DAILY 11/06/17 11/27/17 History Ellipta 100-25 Mcg INH] Furosemide [Furosemide 80mg Tab] 80 mg PO DAILYP PRN 11/06/17 11/27/17 History Isosorbide Mononitrate [Imdur 30mg 30 mg PO DAILY 11/06/17 11/27/17 History ER tablet] Olmesartan Medoxomil 40 mg PO DAILY 11/06/17 11/27/17 History Simvastatin 40 mg PO DAILY 11/06/17 11/27/17 History Clindamycin HCl [Clindamycin 300mg 600 mg PO TID 11/13/17 11/27/17 History Cap] Ferrous Sulfate/Vit C/Folic AC 1 each PO DAILY 11/13/17 11/27/17 History [Folitab 500 Caplet] Insulin Lispro [Humalog] 45 unit SQ DAILY 11/13/17 11/27/17 History Niacin (Inositol Niacinate) 500 mg PO DAILY 11/13/17 11/27/17 History [Niacin 500 mg Capsule] Triamcinolone Acetonide [Kenalog 1 applic TOPICAL BID 11/18/17 11/27/17 History 0.1% cream 80gm tube] insulin glargine (U-100) 100 35 unit SUB-Q QHS ml 11/21/17 11/27/17 History unit/mL (3 mL) subcutaneous pen Amoxicillin/Potassium Clav 1 tab PO Q12H 11/27/17 11/27/17 History [Augmentin 875-125 Tablet] Carvedilol [Carvedilol 6.25mg Tab] 6.25 mg PO BID 11/27/17 11/27/17 History predniSONE [Prednisone 50mg Tab] 50 mg PO DAILY 11/27/17 11/27/17 History Prescriptions/Medication Reconciliation: New predniSONE [Prednisone 20mg Tab] 10 mg PO DAILY 12 Days tab Azithromycin [Zithromax 250mg tab] 250 mg PO DIRECTED #6 tab Continue tamsulosin 0.4 mg capsule 0.4 mg PO DAILY aspirin 81 mg chewable tablet 81 mg PO DAILY gabapentin 600 mg tablet 600 mg PO QID #120 tab benzonatate 100 mg capsule 100 mg PO BID PRN #14 cap PRN Reason: cough clopidogrel 75 mg tablet 75 mg PO DAILY #90 tab multivitamin tablet 1 tab PO DAILY insulin glargine (U-100) 100 unit/mL (3 mL) subcutaneous pen 35 unit SUB-Q QHS ml Fenofibrate Nanocrystallized [Tricor] 145 mg PO DAILY Carbidopa/Levodopa [Carbidopa-Levo 10-100 mg Odt] 1 tab PO HS Simvastatin 40 mg PO DAILY Furosemide [Furosemide 80mg Tab] 80 mg PO DAILYP PRN PRN Reason: FLUID Olmesartan Medoxomil 40 mg PO DAILY Isosorbide Mononitrate [Imdur 30mg ER tablet] 30 mg PO DAILY Fluticasone/Vilanterol [Breo Ellipta 100-25 Mcg INH] 1 inh INHALATION DAILY Niacin (Inositol Niacinate) [Niacin 500 mg Capsule] 500 mg PO DAILY Ferrous Sulfate/Vit C/Folic AC [Folitab 500 Caplet] 1 each PO DAILY Clindamycin HCl [Clindamycin 300mg Cap] 600 mg PO TID Triamcinolone Acetonide [Kenalog 0.1% cream 80gm tube] 1 applic TOPICAL BID predniSONE [Prednisone 50mg Tab] 50 mg PO DAILY Carvedilol [Carvedilol 6.25mg Tab] 6.25 mg PO BID Amoxicillin/Potassium Clav [Augmentin 875-125 Tablet] 1 tab PO Q12H Insulin Lispro [Humalog] 45 unit SQ DAILY
[2017-11-29 09:02] LABS: Basophils % 0.1 % (0.1-2.0); Eosinophils % 0.1 % (0.1-12.0); Hematocrit 37.3 % (42.0-52.0); Hemoglobin 11.6 g/dL (14.1-18.0); Lymphocytes # 1.3 K/mm3 (0.7-4.5); Lymphocytes % 11.5 K/mm3 (10-50); Mean Corpuscular HGB Conc 31.1 g/dL (31.8-35.4); Mean Corpuscular Hemoglobin 29.9 pg (27.0-31.2); Mean Platelet Volume 8.9 fl (7.4-10.4); Monocytes # 0.4 K/mm3 (0.1-1.0); Monocytes % 3.8 % (1.7-9.3); Neutrophils # 9.8 K/mm3 (1.8-7.8); Neutrophils % 84.5 % (37.0-80.0); Platelet Count 175 K/mm3 (142-424); Red Blood Count 3.89 M/mm3 (4.60-6.20); Red Cell Distribution Width 14.1 % (11.5-17.5); White Blood Count 11.6 K/mm3 (4.8-10.8)
[2017-11-29 09:04] LABS: Albumin Level 3.1 gm/dL (3.4-5.0); Albumin/Globulin Ratio 0.9 (1.1-1.8); Anion Gap 8.8 mEq/L (5-15); Bilirubin,Total 0.5 mg/dL (0.2-1.0); Calcium 8.6 mg/dL (8.5-10.1); Globulin 3.5 gm/dl (1.3-3.2); Potassium 4.8 mmoL/L (3.5-5.1); Total Protein,Serum 6.6 gm/dL (6.4-8.2)
== END 2017-11-29 09:26 | disposition home or self-care (01) ==
LOC: 2ND 16:15 → ER 16:15 → 2ND 18:53
PROVIDERS: ADMIT Internal Medicine Adolescent Medicine; ATTEND Emergency Medicine
CPT/HCPCS: 36415; 71020; 71046; 80048; 80053; 80202; 82550; 82553; 82947; 82962; 83605; 84484; 85025; 87040; 87205; 93005; 94640; 94761; 96374; 99283; G0378; J0456

== ENCOUNTER → 2017-12-02 14:13 | Outpatient (CLI) | payer MEDICARE, MEDICAID, SELFPAY ==
--- NOTE | 2017-12-02 14:16 | CA_ITS ---
PROCEDURE: 2-D M-mode and color Doppler study INDICATIONS FOR THE TEST: Chest pain COPDX Heart Murmur Tobacco Smoking Palpitations Fatigue Syncope Edema HypertensionXDiabetes Mellitus Rheumatic Fever SOBXDOEXObesityXHyperlipidemiaX Family History HD Additional History ICD,CABG ECHO OF 08/16/15 EF 35-40% PATIENT INFORMATION HEIGHT: 72 WEIGHT:209 GENDER: Male B/P:107/58 2-D/M-MODE INTERPRETATION: 2-D MEASUREMENTS OBSERVED VALUES IN CMS Right Ventricular Dimension (RVDd) 2.1 Interventricular Septum (Thickness)(IVsd) .9 Left Ventricular Internal Dimensions(LVIDd) 6.1 Left Ventricular Posterior Wall (Thickness)(LVPWd) .8 Aortic Root 3.9 Aortic Cusp Separation 2.0 Left Atrial Dimensions (LAD) 4.3 2D 1. Left atrium is mildly enlarged, left ventricle is normal size, the there is qualitatively concentric left ventricular hypertrophy, visually estimated ejection fraction 45%, there is marked hypo to akinesis involving the basal septum and inferobasal wall. 2. The right atrium and right ventricle are normal size and contractility. There is a catheter noted in the right ventricle which is likely an ICD lead. 3. The aortic valve is minimally thickened and fibrosed. 4. The mitral and tricuspid valve leaflets are minimally thickened. 5. The pulmonic valve is poorly visualized. 6. No significant pericardial effusion noted. DOPPLER INTERROGATION: Doppler interrogation of the aortic, mitral and tricuspid valvular presence of mild mitral and tricuspid regurgitation, tricuspid and jet velocity insufficient for calculation of the right ventricular systolic pressure, grade 1 diastolic dysfunction seen without tissue Doppler evidence of raised left atrial pressure. CONCLUSION: 1. Mildly enlarged left atrium, normal left ventricular size, mild qualitative concentric left ventricular hypertrophy, visually estimated ejection fraction 45% with segmental wall motion abnormality described above, grade 1 diastolic dysfunction seen without tissue Doppler evidence of raised left atrial pressure. 2. Mild mitral and tricuspid regurgitation 3. No significant pericardial effusion noted.
[2017-12-02 16:59] LABS: Anion Gap 13.4 mEq/L (5-15); Blood Urea Nitrogen 56 mg/dL (7-18); Carbon Dioxide 34 mmol/L (21.0-32.0); Chloride 96 mmol/L (98-107); Creatinine,Serum 1.71 mg/dL (0.70-1.30); Estimated Glomerular Filt Rate 40 ml/min (>60); GFR (African American) 48 ML/MIN (>60); Glucose 372 mg/dL (74-106); Potassium 5.4 mmoL/L (3.5-5.1); Sodium 138 mmol/L (136-145)
== END ==
PROVIDERS: Internal Medicine Cardiovascular Disease; Family Provider Nurse Practitioner Family; PCP Nurse Practitioner Family; Visit Provider Internal Medicine
DX: I42.8 Other cardiomyopathies (principal); I50.9 Heart failure, unspecified; I25.10 Atherosclerotic heart disease of native coronary artery without angina pectoris
CPT/HCPCS: 80048; 83880; 93306

== ENCOUNTER → 2017-12-05 11:35 | Outpatient (CLI) | payer MEDICARE, MEDICAID, SELFPAY ==
[2017-12-05 13:52] LABS: Blood Urea Nitrogen 56 mg/dL (7-18); Carbon Dioxide 34 mmol/L (21.0-32.0); Chloride 102 mmol/L (98-107); Estimated Glomerular Filt Rate 40 ml/min (>60); GFR (African American) 48 ML/MIN (>60); Glucose 271 mg/dL (74-106); Sodium 141 mmol/L (136-145)
== END ==
PROVIDERS: Physician Assistant; Visit Provider Internal Medicine Cardiovascular Disease
DX: E87.5 Hyperkalemia (principal)
CPT/HCPCS: 36415; 80048; 83880

== ENCOUNTER → 2017-12-06 16:13 | Outpatient (REF) | payer MEDICARE, MEDICAID, SELFPAY ==
[2017-12-06 18:36] LABS: Alanine Aminotransferase 32 U/L (12-78); Albumin Level 3.9 gm/dL (3.4-5.0); Albumin/Globulin Ratio 1.1 (1.1-1.8); Alkaline Phosphatase 44 U/L (46-116); Anion Gap 13.6 mEq/L (5-15); Aspartate Amino Transferase 20 U/L (15-37); Bilirubin,Total 0.4 mg/dL (0.2-1.0); Blood Urea Nitrogen 44 mg/dL (7-18); Calcium 9.4 mg/dL (8.5-10.1); Carbon Dioxide 30 mmol/L (21.0-32.0); Chloride 97 mmol/L (98-107); Creatinine,Serum 1.43 mg/dL (0.70-1.30); Estimated Glomerular Filt Rate 49 ml/min (>60); GFR (African American) 59 ML/MIN (>60); Globulin 3.5 gm/dl (1.3-3.2); Glucose 325 mg/dL (74-106); Potassium 5.6 mmoL/L (3.5-5.1); Sodium 135 mmol/L (136-145); Total Protein,Serum 7.4 gm/dL (6.4-8.2)
== END ==
LOC: LAB 16:13
PROVIDERS: Visit Provider Nurse Practitioner Family
DX: E87.5 Hyperkalemia (principal); R06.02 Shortness of breath
CPT/HCPCS: 80053

== ENCOUNTER → 2017-12-10 09:08 | Outpatient (POV) | payer MEDICARE, MEDICAID, SELFPAY | PROVIDERS: Family Provider Nurse Practitioner Family; PCP Emergency Medicine; Visit Provider Internal Medicine | DX: Z00.00 Encounter for general adult medical examination without abnormal findings (principal) ==

== ENCOUNTER 2017-12-19 11:59 | Observation (INO) ==
[2017-12-19 12:41] LABS: Appearance,Urine CLOUDY (Clear); Blood, Urine 3+ (Negative); Color,Urine RED (Yellow); Glucose,Urine (UA) TRACE (Negative); Ketones,Urine 1+ (Negative); Leukocyte Esterase,Urine 2+ (Negative); Microscopic, Urine URINE MICROSCOPIC (MICROSCOPIC); Protein,Urine 3+ (Negative); Specific Gravity, Urine 1.015 (1.005-1.030)
[2017-12-19 12:44] LABS: Bilirubin,Urine 1+ (Negative)
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
[2017-12-19 12:54] LABS: Bacteria,Urine 2+ /lpf; RBC,Urine TNTC #/hpf (0-3)
[2017-12-19 14:11] LABS: Basophils # 0.1 K/mm3 (0-0.2); Basophils % 0.6 % (0.1-2.0); Eosinophils # 0.4 K/mm3 (0.0-0.4); Eosinophils % 4.7 % (0.1-12.0); Hematocrit 37.6 % (42.0-52.0); Hemoglobin 12.3 g/dL (14.1-18.0); Lymphocytes # 1.3 K/mm3 (0.7-4.5); Mean Corpuscular HGB Conc 32.8 g/dL (31.8-35.4); Mean Corpuscular Volume 91.7 fl (80-94); Mean Platelet Volume 8.3 fl (7.4-10.4); Monocytes # 0.5 K/mm3 (0.1-1.0); Monocytes % 5.6 % (1.7-9.3); Neutrophils # 5.8 K/mm3 (1.8-7.8); Platelet Count 223 K/mm3 (142-424); Red Cell Distribution Width 13.8 % (11.5-17.5)
[2017-12-19 14:21] LABS: Activated Partial Thrombo Time 29.7 seconds (23.6-34.0); INR 0.96 (0.9-1.1); Prothrombin Time 10.4 seconds (9.4-11.8)
[2017-12-19 14:25] LABS: Albumin Level 3.2 gm/dL (3.4-5.0); Albumin/Globulin Ratio 0.7 (1.1-1.8); Anion Gap 11.6 mEq/L (5-15); Bilirubin,Total 0.5 mg/dL (0.2-1.0); Calcium 9.7 mg/dL (8.5-10.1); Globulin 4.9 gm/dl (1.3-3.2); Potassium 4.6 mmoL/L (3.5-5.1); Total Protein,Serum 8.1 gm/dL (6.4-8.2)
--- NOTE | 2017-12-20 07:38 | Pharmacy Consult Notes ---
[facility] Pharmacy VTE Monitoring - Patient Demographics Admission date: 12/20/17 Report Date: 12/20/17 Time: 07:38 Allergies/Adverse Reactions: Patient Allergies No Known Drug Allergies Allergy (Unknown, Verified 12/06/17 14:58) -- Height: 1.8 m Weight: 95.339 kg Patient Problems: Current Active Problems Hematuria (Acute) Platelet inhibition due to Plavix (Acute) Coagulopathy (Acute) Benign prostatic hyperplasia (Acute) Renal insufficiency (Acute) - VTE Risk Labs: VTE Related Lab Results Hgb 12.3 g/dL (14.1-18.0) L 12/19/17 13:54 Hct 37.6 % (42.0-52.0) L 12/19/17 13:54 Plt Count 223 K/mm3 (142-424) 12/19/17 13:54 PT 10.4 seconds (9.4-11.8) 12/19/17 13:54 INR 0.96 (0.9-1.1) 12/19/17 13:54 APTT 29.7 seconds (23.6-34.0) 12/19/17 13:54 BUN 27 mg/dL (7-18) H 12/19/17 13:54 Creatinine 1.60 mg/dL (0.70-1.30) H 12/19/17 13:54 Estimated Creat Clear 57 mL/min (0-300) 12/19/17 13:54 Was VTE Risk Assessment Performed: Yes VTE Score: 3 VTE Risk Level: Low Risk Clinical Trial Participant: No - Prophylaxis VTE Prophylaxis Ordered?: Yes Types of VTE Prophylaxis: TEDS Knee High Location of Applied Device: Bilateral Lower Extremeties
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
[2017-12-21 07:42] VITALS: BP 152/71
--- NOTE | 2017-12-21 09:37 | Discharge Summary ---
General - General Admission date:: 12/19/17 Discharge date: 12/21/17 HPI HPI: this wm presents to ed with c/c of hematuria - pt with no fever and was seen in the ed -2 years old white male with multiple medical problems including coronary artery disease on aspirin Plavix and prostatic hypertrophy. He started passing jimmy blood this morning and was informed by the home health nurse to go to the ER. In the ED in the urgent treatment care center they found his having jimmy hematuria he was sent to the main ED. upon arrival I contacted Dr. Alegria recommended three-way catheter with bladder irrigation. It was inserted by the nursing staff with no difficulty and irrigation start. I spoke with the family about obtaining labs type and cross 2 units of packed RBCs in case we need them and admission for observation and they were agreeable. The patient denies having any weakness dizziness chest pain abdominal pain nausea vomiting diarrhea flank pain, but he misses coffee-ground emesis melanotic stool hemoptysis or bleeding per rectum. Hospital Course Hospital Course: pt was able to urinate w/o ceja and had no gross hematuria and no fever and was tolerating diet - will d/c on abx and f/u with dr wright and pcp Objective Vital signs: Temp Pulse Resp BP Pulse Ox 98.5 F 79 18 152/71 95 12/21/17 07:41 12/21/17 07:41 12/21/17 07:41 12/21/17 07:41 12/21/17 07:41 no acute distress - *Routine HEENT Exam Head: Present: normocephalic Eye: Present: EOMI, PERRL ENT: Present: mucous membranes dry - *Routine Neck Exam Present: supple - *Routine Respiratory Exam Present: CTA bilaterally - *Routine Cardiovascular Exam Present: RRR, murmur - *Routine Abdominal Exam Present: soft - *Routine Extremities Exam Absent: calf tenderness - *Routine Skin Exam Present: intact - *Routine Neurological Exam Present: alert, oriented X3, CN II-XII intact - Routine Psychiatric Exam Present: normal affect Results Labs on day of discharge: Labs from last 24 hours 12/21/17 12/20/17 12/20/17 07:25 20:48 16:54 POC Glucose 148 H 373 H* 309 H* 12/20/17 11:46 POC Glucose 274 H Preliminary micro results at discharge 12/20/17 05:50 Blood Culture - Preliminary Blood NO GROWTH AFTER 24 HOURS 12/20/17 05:50 Blood Culture - Preliminary Blood NO GROWTH AFTER 24 HOURS 12/19/17 12:12 Urine Culture - Preliminary Urine,Clean Catch NO GROWTH AFTER 24 HOURS DS: Diagnosis - Discharge Diagnosis (1) UTI (urinary tract infection) Status: Acute (2) Hematuria Status: Acute (3) Renal insufficiency Status: Acute Discharge Plan - Patient Discharge Instructions ACTIVITY: Continue current activity DIET: continue same diet - Follow up Plan Disposition: Home, Self-Prison Medications: Home Medications Medication Instructions Recorded Confirmed Type aspirin 81 mg chewable tablet 81 mg PO DAILY 08/26/17 12/19/17 History multivitamin tablet 1 tab PO DAILY 08/26/17 12/19/17 History tamsulosin 0.4 mg capsule 0.4 mg PO DAILY 08/26/17 12/19/17 History Carbidopa/Levodopa [Carbidopa-Levo 1 tab PO HS 11/06/17 12/19/17 History 10-100 mg Odt] Fluticasone/Vilanterol [Breo 1 inh INHALATION DAILY 11/06/17 12/19/17 History Ellipta 100-25 Mcg INH] Furosemide [Furosemide 80mg Tab] 80 mg PO DAILYP PRN 11/06/17 12/19/17 History Isosorbide Mononitrate [Imdur 30mg 30 mg PO DAILY 11/06/17 12/19/17 History ER tablet] Olmesartan Medoxomil 40 mg PO DAILY 11/06/17 12/19/17 History Simvastatin 40 mg PO DAILY 11/06/17 12/19/17 History Ferrous Sulfate/Vit C/Folic AC 1 each PO DAILY 11/13/17 12/19/17 History [Folitab 500 Caplet] Insulin Lispro [Humalog] 45 unit SQ DAILY 11/13/17 12/19/17 History Niacin (Inositol Niacinate) 500 mg PO DAILY 11/13/17 12/19/17 History [Niacin 500 mg Capsule] Triamcinolone Acetonide [Kenalog 1 applic TOPICAL BID 11/18/17 12/19/17 History 0.1% cream 80gm tube] insulin glargine (U-100) 100 35 unit SUB-Q QHS ml 11/21/17 12/19/17 History unit/mL (3 mL) subcutaneous pen Carvedilol [Carvedilol 6.25mg Tab] 6.25 mg PO BID 11/27/17 12/19/17 History Omeprazole [Omeprazole 40mg 40 mg PO DAILY 12/05/17 12/19/17 History Capsule] Prescriptions/Medication Reconciliation: New cephALEXin [Keflex 500mg Cap] 500 mg PO TID #30 cap Continue tamsulosin 0.4 mg capsule 0.4 mg PO DAILY aspirin 81 mg chewable tablet 81 mg PO DAILY clopidogrel 75 mg tablet 75 mg PO DAILY #90 tab gabapentin 600 mg tablet 600 mg PO QID #120 tab fenofibrate nanocrystallized 145 mg tablet 145 mg PO DAILY #90 tab multivitamin tablet 1 tab PO DAILY insulin glargine (U-100) 100 unit/mL (3 mL) subcutaneous pen 35 unit SUB-Q QHS ml Carbidopa/Levodopa [Carbidopa-Levo 10-100 mg Odt] 1 tab PO HS Simvastatin 40 mg PO DAILY Furosemide [Furosemide 80mg Tab] 80 mg PO DAILYP PRN PRN Reason: FLUID Olmesartan Medoxomil 40 mg PO DAILY Isosorbide Mononitrate [Imdur 30mg ER tablet] 30 mg PO DAILY Fluticasone/Vilanterol [Breo Ellipta 100-25 Mcg INH] 1 inh INHALATION DAILY Niacin (Inositol Niacinate) [Niacin 500 mg Capsule] 500 mg PO DAILY Ferrous Sulfate/Vit C/Folic AC [Folitab 500 Caplet] 1 each PO DAILY Triamcinolone Acetonide [Kenalog 0.1% cream 80gm tube] 1 applic TOPICAL BID Carvedilol [Carvedilol 6.25mg Tab] 6.25 mg PO BID Omeprazole [Omeprazole 40mg Capsule] 40 mg PO DAILY Insulin Lispro [Humalog] 45 unit SQ DAILY
== END 2017-12-21 10:15 | disposition home health service (06) ==
LOC: 2ND 11:59 → UTC 11:59 → 2ND 16:49
PROVIDERS: ADMIT Emergency Medicine; ATTEND Emergency Medicine
CPT/HCPCS: 36415; 74177; 80053; 81001; 81003; 82962; 83605; 85025; 85610; 85730; 86850; 87040; 87086; 96365; 96367; 99284; G0378; Q9967

== ENCOUNTER → 2017-12-26 13:04 | Outpatient (CLI) | payer MEDICARE, MEDICAID, SELFPAY ==
--- NOTE | 2017-12-26 13:06 | XR_ITS ---
XR foot wt bearing LT 3V HISTORY: Follow-up surgery ITS.REASON: post-op views ORDERING PHYSICIAN: Padmini Randle DPM PATIENT AGE: 72 years COMPARISON: 11/07/2017 FINDINGS: Status post amputation at the distal aspect of the proximal phalanx of the great toe. No bony erosive changes evident. There is diffuse vascular calcification and a small calcaneal spur. IMPRESSION: Status post amputation at the proximal phalanx of the great toe as described above
== END ==
PROVIDERS: Visit Provider Podiatrist
DX: Z98.890 Other specified postprocedural states (principal)
CPT/HCPCS: 73630

== ENCOUNTER 2018-06-13 20:10 | Observation (INO) ==
[2018-06-13 20:33] LABS: ABG Base Excess 13.1 mmol/L (-2.4-2.3); ABG HCO3 37.8 mmhg (22.0-26.0); ABG Oxygen Saturation 94 % (90-100); ABG PO2 65.6 mmhg (80-100); ABG TCO2 39.7 mmhg (23-27)
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
[2018-06-13 20:35] LABS: Allen's Test Acceptable
[2018-06-13 20:36] LABS: ABG PCO2 62.2 mmhg (35.0-45.0)
[2018-06-13 20:54] LABS: Basophils # 0.1 K/mm3 (0-0.2); Eosinophils # 0.8 K/mm3 (0.0-0.4); Eosinophils % 8.1 % (0.1-12.0); Hematocrit 47.8 % (42.0-52.0); Hemoglobin 15.2 g/dL (14.1-18.0); Lymphocytes # 2.3 K/mm3 (0.7-4.5); Lymphocytes % 24.1 % (10-50); Mean Corpuscular HGB Conc 31.8 g/dL (31.8-35.4); Mean Corpuscular Hemoglobin 29.6 pg (27.0-31.2); Mean Corpuscular Volume 93.3 fl (80-94); Mean Platelet Volume 7.9 fl (7.4-10.4); Monocytes # 0.6 K/mm3 (0.1-1.0); Monocytes % 6.4 % (1.7-9.3); Neutrophils # 5.8 K/mm3 (1.8-7.8); Neutrophils % 60.5 % (37.0-80.0); Platelet Count 206 K/mm3 (142-424); Red Blood Count 5.12 M/mm3 (4.60-6.20); Red Cell Distribution Width 15.5 % (11.5-17.5); White Blood Count 9.5 K/mm3 (4.8-10.8)
[2018-06-13 21:09] LABS: Albumin/Globulin Ratio 0.8 (1.1-1.8); Anion Gap 12.1 mEq/L (5-15); Calcium 9.4 mg/dL (8.5-10.1); Globulin 4.9 gm/dl (1.3-3.2); Potassium 5.1 mmoL/L (3.5-5.1); Total Protein,Serum 8.9 gm/dL (6.4-8.2)
--- NOTE | 2018-06-14 09:45 | History & Physical Report ---
*Admission Date: 06/13/18 *Chief complaint: soa *History of present illness: 72 yr old male presented to ed with c/o of soa that started yesterday and worsened as the day progressed. pt denies soa,chest pressure or cardiac symptoms. Pt admitted for chf,copd and pneumonia per x ray. will start iv antibiotics obtain sputum and blood cx. [facility] History I have reviewed the patient's past medical history: Yes Medical History: Reports:: Chronic Obstructive Pulmonary Disease (COPD), Coronary Artery Disease, Diabetes Mellitus Type 2, Hyperlipidemia, Hypertension, Internal Pacemaker, Lung Disease, Myocardial Infarction Denies:: Cancer, Diabetes Mellitus Type 1, MRSA, Seizures Other Medical History: Reports: Arthritis, Cataracts Laterality Cases: Left: Other Other Surgeries: Yes: Angioplasty, CABG (4 vessel), Cardiac Catheterization, Cardiac Surgery, Cholecystectomy, Coronary Stent, Pacemaker, Other Amputation: Yes Fractures: No - *Social History Educational Level: Attended Grade School Smoking Status: Never smoker Tobacco Type: pipe, cigars #Yrs smoked (if former smoker): 40 Alcohol Intake: never Alcohol Intake Frequency:: 3 or more drinks per day Substance Use Type: denies use Occupational Status: retired Housing: apartment Household Members: spouse - Psychiatric History Expresses thoughts of harming self/others: None Suicide Plan Description: No Plan *Family Hx:: Asthma, Cancer, Coronary Artery Disease, Diabetes, Heart Attack, Hyperlipidemia, Hypertension Review of Systems - Constitutional Denies fatigue - Eyes Denies double vision - ENT Denies poor balance, Denies dizziness - *Cardiovascular Reports shortness of breath, Reports shortness of breath with activity - *Respiratory Reports cough, Reports shortness of breath, Reports shortness of breath with activity, Reports wheezing - *Gastrointestinal Denies change in bowel habits - *Genitourinary Denies painful urination - *Musculoskeletal Denies deformity - Integumentary/Breasts Denies change in skin color - *Neurologic Denies confusion, Denies dizziness - Psychiatric Denies hearing things others do not hear - Endocrine Denies rapid, pounding, or irregular heartbeat - Hematologic/Lymphatic Denies enlarged lymph nodes Meds Home Medications Medication Instructions Recorded Confirmed Type aspirin 81 mg chewable tablet 81 mg PO DAILY 08/26/17 06/13/18 History multivitamin tablet 1 tab PO DAILY 08/26/17 06/13/18 History Fluticasone/Vilanterol [Breo 1 inh INHALATION DAILY 11/06/17 06/13/18 History Ellipta 100-25 Mcg INH] Ferrous Sulfate/Vit C/Folic AC 1 each PO DAILY 11/13/17 06/13/18 History [Folitab 500 Caplet] Triamcinolone Acetonide [Kenalog 1 applic TOPICAL BID 11/18/17 06/13/18 History 0.1% cream 80gm tube] Acetaminophen/Diphenhydramine 1 each PO HS 06/13/18 06/14/18 History [Tylenol Pm Ex-Strength Caplet] Furosemide [Furosemide 80mg Tab] 80 mg PO DAILY 06/13/18 06/13/18 History Insulin Lispro Protamin/Lispro 40 unit SQ DAILY 06/13/18 06/13/18 History [Humalog Mix 75-25 Kwikpen] Allergies Allergy/AdvReac Type Severity Reaction Status Date / Time No Known Drug Allergies Allergy Unknown -- Verified 06/13/18 20:20 Exam Vital signs and Labs for Last 24 Hours: Temp Pulse Resp BP Pulse Ox 97.8 F 80 18 135/73 97 06/14/18 08:00 06/14/18 08:00 06/14/18 08:00 06/14/18 08:00 06/14/18 08:00 Laboratory Results - last 24 hr 06/13/18 20:26: Specimen Source Left radial, O2 % 28%, 2 lpm nc, ABG pH 7.40, ABG pCO2 62.2 H, ABG pO2 65.6 L, ABG HCO3 37.8 H, ABG Total CO2 39.7 H, ABG O2 Saturation 94, ABG Base Excess 13.1 H, Coleman Test Acceptable 06/13/18 20:45: B-Natriuretic Peptide 388 H 06/13/18 20:45: Troponin I < 0.02 06/13/18 20:45: WBC 9.5, RBC 5.12, Hgb 15.2, Hct 47.8, MCV 93.3, MCH 29.6, MCHC 31.8, RDW 15.5, Plt Count 206, MPV 7.9, Neut % (Auto) 60.5, Lymph % (Auto) 24.1, [place] % (Auto) 6.4, Eos % (Auto) 8.1, Baso % (Auto) 1.0, Neut # (Auto) 5.8, Lymph # (Auto) 2.3, [place] # (Auto) 0.6, Eos # (Auto) 0.8 H, Baso # (Auto) 0.1 06/13/18 20:45: Sodium 141, Potassium 5.1, Chloride 99, Carbon Dioxide 35 H, Anion Gap 12.1, BUN 18, Creatinine 0.87, Estimated Creat Clear 96, Estimated GFR 87, Est GFR ( Amer) 105, Glucose 104, Calcium 9.4, Total Bilirubin 1.0, AST 44 H, ALT 16, Alkaline Phosphatase 48, Total Protein 8.9 H, Albumin 4.0, Globulin 4.9 H, Albumin/Globulin Ratio 0.8 L I & O for Last 24 hours: Intake & Output 06/11/18 06/12/18 06/13/18 06/14/18 11:59 11:59 11:59 11:59 Intake Total 360 / 360 Output Total 425 / 425 Balance -65 / -65 Weight 213 lb 6 oz - *Routine HEENT Exam Head: Present: normocephalic Eye: Present: PERRL ENT: Present: mucous membranes moist - *Routine Neck Exam Present: supple. Absent: lymphadenopathy - *Routine Respiratory Exam Present: rhonchi, wheezes, diminished air movement - *Routine Cardiovascular Exam Present: RRR Comments: pacemaker - *Routine Abdominal Exam Present: soft, normoactive bowel sounds. Absent: tenderness - *Routine Extremities Exam Absent: cyanosis, clubbing, edema - *Routine Skin Exam Present: warm. Absent: rash - *Routine Neurological Exam Present: alert, oriented X3 Assessment and Plan - Assessment and plan all Dx Assessment and Plan for all problems:: discussed pt with Dr Nugent all orders per lillie add antibiotics
--- NOTE | 2018-06-14 14:32 | Pharmacy Consult Notes ---
[facility] Pharmacy VTE Monitoring - Patient Demographics Admission date: 06/14/18 Report Date: 06/14/18 Time: 14:31 Allergies/Adverse Reactions: Patient Allergies No Known Drug Allergies Allergy (Unknown, Verified 06/13/18 20:20) -- Height: 1.8 m Weight: 96.785 kg Patient Problems: Current Active Problems Acute exacerbation of chronic obstructive airways disease (Acute) Congestive heart failure (Acute) Hypertension (Acute) - VTE Risk Labs: VTE Related Lab Results Hgb 15.2 g/dL (14.1-18.0) 06/13/18 20:45 Hct 47.8 % (42.0-52.0) 06/13/18 20:45 Plt Count 206 K/mm3 (142-424) 06/13/18 20:45 BUN 18 mg/dL (7-18) 06/13/18 20:45 Creatinine 0.87 mg/dL (0.70-1.30) 06/13/18 20:45 Estimated Creat Clear 96 mL/min (50-200) 06/13/18 20:45 Was VTE Risk Assessment Performed: Yes VTE Score: 7 VTE Risk Level: Moderate Risk - Prophylaxis Types of VTE Prophylaxis: TEDS Knee High (YANELY HOSE ORDER PLACED)
[2018-06-15 07:58] LABS: Anion Gap 3.9 mEq/L (5-15); Calcium 8.6 mg/dL (8.5-10.1)
[2018-06-15 08:01] LABS: Basophils # 0.1 K/mm3 (0-0.2); Basophils % 1.2 % (0.1-2.0); Eosinophils # 0.6 K/mm3 (0.0-0.4); Eosinophils % 8.5 % (0.1-12.0); Hematocrit 39.4 % (42.0-52.0); Hemoglobin 12.4 g/dL (14.1-18.0); Lymphocytes # 2.4 K/mm3 (0.7-4.5); Lymphocytes % 35.8 % (10-50); Mean Corpuscular HGB Conc 31.4 g/dL (31.8-35.4); Mean Corpuscular Hemoglobin 29.5 pg (27.0-31.2); Mean Corpuscular Volume 93.9 fl (80-94); Mean Platelet Volume 7.9 fl (7.4-10.4); Monocytes # 0.5 K/mm3 (0.1-1.0); Monocytes % 7.8 % (1.7-9.3); Neutrophils # 3.1 K/mm3 (1.8-7.8); Neutrophils % 46.6 % (37.0-80.0); Platelet Count 197 K/mm3 (142-424); Red Cell Distribution Width 15.8 % (11.5-17.5); White Blood Count 6.6 K/mm3 (4.8-10.8)
[2018-06-15 08:05] LABS: Potassium 3.9 mmoL/L (3.5-5.1)
--- NOTE | 2018-06-15 10:31 | Progress Note ---
Internal Medicine - PN: Subj *Date: 06/15/18 *Time: 09:00 Exam Vital signs and Labs for Last 24 Hours: Temp Pulse Resp BP Pulse Ox 98.0 F 63 18 123/63 95 06/15/18 07:45 06/15/18 07:45 06/15/18 07:45 06/15/18 07:45 06/15/18 08:00 Laboratory Results - last 24 hr 06/14/18 11:54: POC Glucose 243 H 06/14/18 19:54: POC Glucose 176 H 06/15/18 07:20: WBC 6.6 D, RBC 4.20 L, Hgb 12.4 L, Hct 39.4 L, MCV 93.9, MCH 29.5, MCHC 31.4 L, RDW 15.8, Plt Count 197, MPV 7.9, Neut % (Auto) 46.6, Lymph % (Auto) 35.8, [place] % (Auto) 7.8, Eos % (Auto) 8.5, Baso % (Auto) 1.2, Neut # (Auto) 3.1, Lymph # (Auto) 2.4, [place] # (Auto) 0.5, Eos # (Auto) 0.6 H, Baso # (Auto) 0.1 06/15/18 07:20: Sodium 136, Potassium 3.9 D, Chloride 97 L, Carbon Dioxide 39 H , Anion Gap 3.9 L, BUN 36 H D, Creatinine 1.29 D, Estimated Creat Clear 74, Estimated GFR 55 L, Est GFR ( Amer) 66 D, Glucose 155 H, Calcium 8.6 I & O for Last 24 hours: Intake & Output 06/12/18 06/13/18 06/14/18 06/15/18 11:59 11:59 11:59 11:59 Intake Total 360 / 360 1260 / 1260 Output Total 425 / 425 700 / 700 Balance -65 / -65 560 / 560 Weight 213 lb 6 oz 220 lb 4 oz - *Routine HEENT Exam Head: Present: normocephalic Eye: Present: PERRL ENT: Present: mucous membranes moist - *Routine Neck Exam Present: supple. Absent: lymphadenopathy - *Routine Respiratory Exam Present: wheezes, diminished air movement - *Routine Cardiovascular Exam Present: RRR Comments: pacemaker - *Routine Abdominal Exam Present: soft, normoactive bowel sounds. Absent: tenderness - *Routine Extremities Exam Absent: cyanosis, clubbing, edema - *Routine Skin Exam Present: warm. Absent: rash - *Routine Neurological Exam Present: alert, oriented X3 Assessment and Plan - Assessment and plan all Dx Assessment and Plan for all problems:: lillie to round later today all orders per lillie
[2018-06-16 07:18] LABS: Basophils # 0.1 K/mm3 (0-0.2); Basophils % 0.8 % (0.1-2.0); Eosinophils # 0.6 K/mm3 (0.0-0.4); Eosinophils % 8.8 % (0.1-12.0); Hematocrit 39.8 % (42.0-52.0); Hemoglobin 12.2 g/dL (14.1-18.0); Lymphocytes # 2.1 K/mm3 (0.7-4.5); Lymphocytes % 33.9 % (10-50); Mean Corpuscular HGB Conc 30.5 g/dL (31.8-35.4); Mean Corpuscular Hemoglobin 28.9 pg (27.0-31.2); Mean Corpuscular Volume 94.9 fl (80-94); Mean Platelet Volume 8.1 fl (7.4-10.4); Monocytes # 0.5 K/mm3 (0.1-1.0); Monocytes % 7.6 % (1.7-9.3); Neutrophils # 3.1 K/mm3 (1.8-7.8); Neutrophils % 48.9 % (37.0-80.0); Platelet Count 159 K/mm3 (142-424); Red Cell Distribution Width 15.6 % (11.5-17.5); White Blood Count 6.3 K/mm3 (4.8-10.8)
[2018-06-16 07:40] LABS: Anion Gap 8.4 mEq/L (5-15); Calcium 8.8 mg/dL (8.5-10.1); Potassium 4.4 mmoL/L (3.5-5.1)
--- NOTE | 2018-06-16 11:50 | Discharge Summary ---
General - General Admission date:: 06/13/18 Discharge date: 06/16/18 HPI HPI: 72 yr old male presented to ed with c/o of soa that started yesterday and worsened as the day progressed. pt denies soa,chest pressure or cardiac symptoms. Pt admitted for chf,copd and pneumonia per x ray. will start iv antibiotics obtain sputum and blood cx. Hospital Course Hospital Course: iv antibotics,sputum cx, blood cx, pt states he feels great and would like to go home. will dc home and follow up in office in 2 weeks. Objective Vital signs: Temp Pulse Resp BP Pulse Ox 98.0 F 75 18 138/69 95 06/16/18 08:00 06/16/18 08:00 06/16/18 08:00 06/16/18 08:00 06/16/18 08:00 no acute distress - *Routine HEENT Exam Head: Present: normocephalic Eye: Present: PERRL ENT: Present: mucous membranes moist - *Routine Neck Exam Present: full ROM - *Routine Respiratory Exam Present: CTA bilaterally, wheezes - *Routine Cardiovascular Exam Present: RRR - *Routine Abdominal Exam Present: soft, normoactive bowel sounds - *Routine Extremities Exam Present: full ROM - *Routine Skin Exam Present: intact - *Routine Neurological Exam Present: alert, oriented X3 - Routine Psychiatric Exam Present: normal affect Results Labs on day of discharge: Labs from last 24 hours 06/16/18 06/16/18 06/15/18 07:09 07:09 21:46 WBC 6.3 RBC 4.20 L Hgb 12.2 L Hct 39.8 L MCV 94.9 H MCH 28.9 MCHC 30.5 L RDW 15.6 Plt Count 159 MPV 8.1 Neut % (Auto) 48.9 Lymph % (Auto) 33.9 [place] % (Auto) 7.6 Eos % (Auto) 8.8 Baso % (Auto) 0.8 Neut # (Auto) 3.1 Lymph # (Auto) 2.1 [place] # (Auto) 0.5 Eos # (Auto) 0.6 H Baso # (Auto) 0.1 Sodium 141 Potassium 4.4 Chloride 98 Carbon Dioxide 39 H Anion Gap 8.4 BUN 29 H Creatinine 1.08 Estimated Creat Clear 90 Estimated GFR 67 Est GFR ( Amer) 82 D Glucose 131 H POC Glucose 159 H Calcium 8.8 - Additional Comments discussed pt with Jourdan moreira Plan - Patient Discharge Instructions ACTIVITY: Continue current activity DIET: continue same diet Patient Instructions: DI for Heart Failure, DI for Chronic Obstructive Pulmonary Disease - Follow up Plan Follow up with: Echo Horner APRN [Advanced Practice Nurse] - 2 weeks Disposition: Home, Self-Custodial Medications: Home Medications Medication Instructions Recorded Confirmed Type multivitamin tablet 1 tab PO DAILY 08/26/17 06/13/18 History Fluticasone/Vilanterol [Breo 1 inh INHALATION DAILY 11/06/17 06/13/18 History Ellipta 100-25 Mcg INH] Ferrous Sulfate/Vit C/Folic AC 1 each PO DAILY 11/13/17 06/13/18 History [Folitab 500 Caplet] Triamcinolone Acetonide [Kenalog 1 applic TOPICAL BID 11/18/17 06/13/18 History 0.1% cream 80gm tube] Acetaminophen/Diphenhydramine 1 each PO HS 06/13/18 06/14/18 History [Tylenol Pm Ex-Strength Caplet] Furosemide [Furosemide 80mg Tab] 80 mg PO DAILY 06/13/18 06/13/18 History Insulin Lispro Protamin/Lispro 45 unit SQ DAILY 06/14/18 06/14/18 History [Humalog Mix 75/25 100 Units/mL 10mL Vial] Aspirin [Aspirin 81mg chewable 81 mg PO DAILY 06/16/18 06/16/18 History tab] Tamsulosin HCl [Flomax 0.4mg 0.4 mg PO DAILY 06/16/18 06/16/18 History capsule] Prescriptions/Medication Reconciliation: New Azithromycin [Zithromax 250mg tab] 250 mg PO DIRECTED #6 tab Continue fenofibrate nanocrystallized 145 mg tablet 145 mg PO DAILY #90 tab insulin glargine (U-100) 100 unit/mL (3 mL) subcutaneous pen 35 unit SUB-Q QHS #3 ml gabapentin 600 mg tablet 600 mg PO QID #120 tab omeprazole 40 mg capsule,delayed release 40 mg PO DAILY #90 cap olmesartan 40 mg tablet 40 mg PO DAILY #90 tab clopidogrel 75 mg tablet 75 mg PO DAILY #90 tab isosorbide mononitrate ER 30 mg tablet,extended release 24 hr 30 mg PO DAILY 90 Days #90 tab multivitamin tablet 1 tab PO DAILY simvastatin 40 mg tablet 40 mg PO DAILY #90 tab carbidopa 10 mg-levodopa 100 mg disintegrating tablet 1 tab PO HS #90 tab carvedilol 6.25 mg tablet 6.25 mg PO BID #180 tab Fluticasone/Vilanterol [Breo Ellipta 100-25 Mcg INH] 1 inh INHALATION DAILY Ferrous Sulfate/Vit C/Folic AC [Folitab 500 Caplet] 1 each PO DAILY Triamcinolone Acetonide [Kenalog 0.1% cream 80gm tube] 1 applic TOPICAL BID Insulin Lispro Protamin/Lispro [Humalog Mix 75/25 100 Units/mL 10mL Vial] 45 unit SQ DAILY Aspirin [Aspirin 81mg chewable tab] 81 mg PO DAILY Tamsulosin HCl [Flomax 0.4mg capsule] 0.4 mg PO DAILY Furosemide [Furosemide 80mg Tab] 80 mg PO DAILY Acetaminophen/Diphenhydramine [Tylenol Pm Ex-Strength Caplet] 1 each PO HS
== END 2018-06-16 12:30 | disposition home or self-care (01) ==
LOC: 2ND 20:10 → ER 20:10 → INTOOBSV 22:58 → OBSVTOIN 22:58 → 2ND 22:59
PROVIDERS: ADMIT Internal Medicine Adolescent Medicine; ATTEND Emergency Medicine
CPT/HCPCS: 36415; 71010; 71045; 80048; 80053; 82803; 82962; 83880; 84484; 85025; 87040; 87205; 93005; 96374; 96375; 99284; G0378; J0456; J2405

== ENCOUNTER → 2019-02-10 09:43 | Outpatient (CLI) | payer MEDICARE, SELFPAY ==
[2019-02-10 10:23] LABS: Basophils # 0.1 K/mm3 (0-0.2); Basophils % 1.4 % (0.1-2.0); Eosinophils # 0.4 K/mm3 (0.0-0.4); Eosinophils % 6.4 % (0.1-12.0); Hematocrit 44.7 % (42.0-52.0); Hemoglobin 13.9 g/dL (14.1-18.0); Lymphocytes # 1.8 K/mm3 (0.7-4.5); Lymphocytes % 30.3 % (10-50); Mean Corpuscular Hemoglobin 28.3 pg (27.0-31.2); Mean Corpuscular Volume 91.3 fl (80-94); Mean Platelet Volume 8.9 fl (7.4-10.4); Monocytes # 0.4 K/mm3 (0.1-1.0); Monocytes % 6.4 % (1.7-9.3); Neutrophils # 3.2 K/mm3 (1.8-7.8); Neutrophils % 55.4 % (37.0-80.0); Platelet Count 187 K/mm3 (142-424); Red Blood Count 4.89 M/mm3 (4.60-6.20); Red Cell Distribution Width 14.6 % (11.5-17.5); White Blood Count 5.8 K/mm3 (4.8-10.8)
[2019-02-10 11:11] LABS: Alanine Aminotransferase 19 U/L (12-78); Albumin Level 3.4 gm/dL (3.4-5.0); Alkaline Phosphatase 51 U/L (46-116); Anion Gap 11.1 mEq/L (5-15); Aspartate Amino Transferase 15 U/L (15-37); Bilirubin,Total 0.5 mg/dL (0.2-1.0); Blood Urea Nitrogen 25 mg/dL (7-18); Calcium 9.1 mg/dL (8.5-10.1); Carbon Dioxide 34 mmol/L (21.0-32.0); Chloride 99 mmol/L (98-107); Cholesterol 191 mg/dL (140-200); Creatinine,Serum 1.21 mg/dL (0.70-1.30); Estimated Glomerular Filt Rate 59 ml/min (>60); GFR (African American) 71 ML/MIN (>60); Globulin 3.5 gm/dl (1.3-3.2); Glucose 219 mg/dL (74-106); HDL Cholesterol 24 mg/dL (27-67); Potassium 4.1 mmoL/L (3.5-5.1); Sodium 140 mmol/L (136-145); T4 (Thyroxine) 7.2 ug/dl (4.7-13.3); Thyroid Stimulating Hormone 2.25 uIU/ml (0.358-3.740); Total Protein,Serum 6.9 gm/dL (6.4-8.2)
[2019-02-10 11:37] LABS: Triglycerides 492 mg/dL (30-200)
[2019-02-10 11:59] LABS: Hemoglobin A1C 8.5 % (0.0-7.0)
[2019-02-11 14:48] LABS: Vitamin D 25 Hydroxy 28.2 ng/mL (30.0-100.0)
[2019-02-11 14:50] LABS: Microalbumin, Urine 66.2 ug/mL (Not Estab.)
== END ==
PROVIDERS: Visit Provider Nurse Practitioner Family
DX: I50.9 Heart failure, unspecified (principal); E11.9 Type 2 diabetes mellitus without complications; R53.83 Other fatigue; E87.5 Hyperkalemia; Z79.02 Long term (current) use of antithrombotics/antiplatelets; Z79.4 Long term (current) use of insulin; E55.9 Vitamin D deficiency, unspecified
CPT/HCPCS: 36415; 80053; 80061; 82043; 82652; 83036; 84436; 84443; 85025

== ENCOUNTER → 2019-05-20 18:12 | Outpatient (CLI) | payer MEDICARE, SELFPAY ==
[2019-05-20 20:58] LABS: Chol/HDL Ratio 5.7 (1-3.5); Cholesterol 171 mg/dL (140-200); HDL Cholesterol 30 mg/dL (27-67); LDL Cholesterol 66 mg/dL (0-130); Triglycerides 375 mg/dL (30-200); VLDL Cholesterol 75 mg/dL (0-40)
== END ==
PROVIDERS: Visit Provider Nurse Practitioner Family
DX: E11.9 Type 2 diabetes mellitus without complications (principal); Z79.02 Long term (current) use of antithrombotics/antiplatelets; Z79.4 Long term (current) use of insulin
CPT/HCPCS: 80061; 83036

== ENCOUNTER → 2019-09-03 13:10 | Outpatient (CLI) | payer MEDICARE, MEDICAID, SELFPAY ==
--- NOTE | 2019-09-03 13:10 | CT_ITS ---
PROCEDURE: CT HEAD/BRAIN WO CON CLINICAL INDICATION: headache COMPARISON: No exams were available for comparison TECHNIQUE: Axial images obtained. All CT scans at the facility use one or more dose reduction, viz: automated exposure control, ma/kV adjustment per patient size (including targeted exams where dose is matched to indication, i.e. head), or iterative reconstruction technique. FINDINGS: No midline shift, mass effect, intracranial hemorrhage, hydrocephalus, or extra-axial fluid collection is evident. There is generalized atrophy with hypoattenuation of the periventricular white matter consistent with microangiopathic changes. The calvarium has an unremarkable appearance. There is some sclerosis the lateral aspect of the right mastoid sinus with sparse septa of the right mastoid sinus. Has there been prior mastoid surgery on the right? There is mucosal thickening of the ethmoid sinuses on both sides IMPRESSION: 1. No acute intracranial findings. Atrophy with chronic ischemic change. 2. Suspect chronic right mastoid inflammatory change/postsurgical change. Please correlate with surgical history Dictated by: Coleman Delgado MD 09/03/2019 18:13 Electronically signed by Coleman Delgado MD in [place] 09/03/2019 18:13
== END ==
PROVIDERS: PCP Nurse Practitioner Family; Visit Provider Nurse Practitioner Family
DX: R51 Headache (principal)
CPT/HCPCS: 70450

== ENCOUNTER → 2019-09-17 13:29 | Outpatient (CLI) | payer MEDICARE, SELFPAY ==
[2019-09-17 13:40] LABS: Basophils # 0.1 K/mm3 (0-0.2); Basophils % 1.2 % (0.1-2.0); Eosinophils # 0.4 K/mm3 (0.0-0.4); Eosinophils % 5.6 % (0.1-12.0); Hematocrit 46.2 % (42.0-52.0); Hemoglobin 14.6 g/dL (14.1-18.0); Lymphocytes % 31.1 % (10-50); Mean Corpuscular HGB Conc 31.7 g/dL (31.8-35.4); Mean Corpuscular Hemoglobin 29.2 pg (27.0-31.2); Mean Corpuscular Volume 92.3 fl (80-94); Mean Platelet Volume 9.9 fl (7.4-10.4); Monocytes # 0.5 K/mm3 (0.1-1.0); Monocytes % 7.8 % (1.7-9.3); Neutrophils # 3.5 K/mm3 (1.8-7.8); Neutrophils % 54.2 % (37.0-80.0); Platelet Count 192 K/mm3 (142-424); Red Cell Distribution Width 14.2 % (11.5-17.5); White Blood Count 6.4 K/mm3 (4.8-10.8)
[2019-09-17 14:18] LABS: Alanine Aminotransferase 17 U/L (21-72); Albumin Level 4.3 g/dL (3.4-5.0); Albumin/Globulin Ratio 1.2 (1.1-1.8); Alkaline Phosphatase 48 U/L (46-116); Anion Gap 12.9 mEq/L (5-15); Aspartate Amino Transferase 24 U/L (15-37); Bilirubin,Total 0.6 mg/dL (0.2-1.0); Blood Urea Nitrogen 31 mg/dL (7-18); Calcium 9.7 mg/dL (8.5-10.1); Carbon Dioxide 35 mmol/L (21.0-32.0); Chloride 101 mmol/L (98-107); Chol/HDL Ratio 4.6 (1-3.5); Cholesterol 161 mg/dL (140-200); Creatinine,Serum 1.27 mg/dL (0.70-1.30); Estimated Glomerular Filt Rate 56 ml/min (>60); GFR (African American) 67 ML/MIN (>60); Globulin 3.5 gm/dl (1.3-3.2); Glucose 150 mg/dL (74-106); HDL Cholesterol 35 mg/dL (27-67); LDL Cholesterol 86 mg/dL (0-130); Potassium 4.9 mmoL/L (3.5-5.1); Sodium 144 mmol/L (137-145); T4 (Thyroxine) 7.5 ug/dl (4.7-13.3); Thyroid Stimulating Hormone 2.79 uIU/ml (0.358-3.740); Total Protein,Serum 7.8 g/dL (6.4-8.2); Triglycerides 202 mg/dL (30-200); VLDL Cholesterol 40 mg/dL (0-40)
[2019-09-17 14:49] LABS: Hemoglobin A1C 7.3 % (0.0-7.0)
[2019-09-18 10:51] LABS: Vitamin D 25 Hydroxy 35.6 ng/mL (30.0-100.0)
[2019-09-18 11:01] LABS: Creatinine, Urine 140.7 mg/dL (Not Estab.); Microalbumin, Urine 174.3 ug/mL (Not Estab.)
== END ==
PROVIDERS: Visit Provider Nurse Practitioner Family
DX: E11.9 Type 2 diabetes mellitus without complications (principal); Z79.02 Long term (current) use of antithrombotics/antiplatelets; I50.9 Heart failure, unspecified; E87.5 Hyperkalemia; Z79.4 Long term (current) use of insulin
CPT/HCPCS: 80053; 80061; 82043; 82570; 82652; 83036; 84436; 84443; 85025

== ENCOUNTER 2019-10-21 08:19 | Inpatient (IN) ==
[2019-10-21 09:33] LABS: Basophils # 0.1 K/mm3 (0-0.2); Basophils % 0.6 % (0.1-2.0); Eosinophils # 0.3 K/mm3 (0.0-0.4); Eosinophils % 3.5 % (0.1-12.0); Hematocrit 30.6 % (42.0-52.0); Hemoglobin 9.2 g/dL (14.1-18.0); Lymphocytes # 1.6 K/mm3 (0.7-4.5); Lymphocytes % 20.2 % (10-50); Mean Corpuscular HGB Conc 29.9 g/dL (31.8-35.4); Mean Corpuscular Volume 93.6 fl (80-94); Mean Platelet Volume 8.3 fl (7.4-10.4); Monocytes # 0.5 K/mm3 (0.1-1.0); Monocytes % 6.5 % (1.7-9.3); Neutrophils # 5.4 K/mm3 (1.8-7.8); Neutrophils % 69.1 % (37.0-80.0); Platelet Count 359 K/mm3 (142-424); Red Blood Count 3.27 M/mm3 (4.60-6.20); Red Cell Distribution Width 15.6 % (11.5-17.5); White Blood Count 7.9 K/mm3 (4.8-10.8)
[2019-10-21 09:36] LABS: Calcium 8.7 mg/dl (8.4-10.2)
[2019-10-21 11:36] LABS: Anion Gap 10.6 mEq/L (5-15)
[2019-10-22 07:01] LABS: Basophils % 0.3 % (0.1-2.0)
[2019-10-22 07:03] LABS: Eosinophils # 0.2 K/mm3 (0.0-0.4); Lymphocytes # 1.9 K/mm3 (0.7-4.5); Lymphocytes % 16.6 % (10-50); Mean Corpuscular HGB Conc 30.8 g/dL (31.8-35.4); Mean Corpuscular Volume 91.4 fl (80-94); Mean Platelet Volume 9.6 fl (7.4-10.4); Monocytes # 0.9 K/mm3 (0.1-1.0); Monocytes % 7.6 % (1.7-9.3); Neutrophils # 8.3 K/mm3 (1.8-7.8); Neutrophils % 73.5 % (37.0-80.0); Platelet Count 314 K/mm3 (142-424); Red Blood Count 2.32 M/mm3 (4.60-6.20); Red Cell Distribution Width 16.4 % (11.5-17.5); White Blood Count 11.3 K/mm3 (4.8-10.8)
[2019-10-22 07:08] LABS: Hematocrit 21.2 % (42.0-52.0); Hemoglobin 6.5 g/dL (14.1-18.0)
[2019-10-22 07:32] LABS: Anion Gap 10.2 mEq/L (5-15); Calcium 8.1 mg/dl (8.4-10.2)
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
--- NOTE | 2019-10-22 09:25 | H&P/Discharge Summary ---
General - General Admission date:: 10/22/19 Discharge date: 10/22/19 *Admission Date: 10/22/19 *Chief complaint: bleed *History of present illness: 73-year-old white male with known coronary artery disease and history of coronary artery bypass grafting in 2002 was brought in as an outpatient yesterday for cardiac catheterization. He ended up getting coronary stenting and was kept overnight for observation. During the night the patient developed diarrhea with blood at which time a CBC was obtained noting a three-point drop in his hemoglobin from 9.2-6.5. Patient has been typed and crossed for 4 units and will begin transfusion of 2 units later today.Of note, he was admitted to the [facility] last month for GI bleed. Records of that admission will be obtained for review. Pt is having numerous bright red blood stools. Pt states weakness and tiredness. [facility] History I have reviewed the patient's past medical history: Yes Medical History: Reports:: Chronic Obstructive Pulmonary Disease (COPD), Coronary Artery Disease, Diabetes Mellitus Type 2, Hyperlipidemia, Hypertension, Internal Pacemaker, Lung Disease, Myocardial Infarction Denies:: Cancer, Diabetes Mellitus Type 1, MRSA, Seizures *Have you ever received a pneumonia vaccine?: Yes *Have you received a flu vaccine this season?: Yes Other Medical History: Reports: Arthritis, Cataracts Laterality Cases: Left: Other Other Surgeries: Yes: Angioplasty, CABG (4 vessel), Cardiac Catheterization, Cardiac Surgery, Cholecystectomy, Coronary Stent, Pacemaker, Other Amputation: Yes Fractures: No - *Social History Smoking Status: Never smoker Tobacco Type: pipe, cigars #Yrs smoked (if former smoker): 40 Alcohol Intake: never Alcohol Intake Frequency:: 3 or more drinks per day Substance Use Type: denies use *Occupational Status:: retired Housing: house Household Members: spouse *Travel in the last 8 weeks: Inside the [facility] Family Hx:: Asthma, Cancer, Coronary Artery Disease, Diabetes, Heart Attack, Hyperlipidemia, Hypertension Review of Systems - Review of Systems Review of systems:: pertinent systems reviewed and negative unless documented below - Constitutional Reports fatigue, Reports lack of energy, Reports malaise, Denies body ache(s) - Eyes Denies change in vision - ENT Denies bleeding gums - *Cardiovascular Denies chest pain with activity - *Respiratory Denies chest congestion - *Gastrointestinal Reports abdominal pain, Reports bright, red blood in stools, Denies bloating - *Genitourinary Denies urinary frequency - *Musculoskeletal Denies neck pain - Integumentary/Breasts Denies rash - *Neurologic Reports dizziness, Reports weakness - Psychiatric Denies lack of enjoyment - Endocrine Denies flushing - Hematologic/Lymphatic Denies enlarged lymph nodes - Allergic/Immunologic Denies itchy eyes Exam Vital signs and Labs for Last 24 Hours: Temp Pulse Resp BP Pulse Ox 98.0 F 94 H 20 104/45 L 100 10/22/19 08:00 10/22/19 08:00 10/22/19 08:00 10/22/19 08:00 10/22/19 08:00 Laboratory Results - last 24 hr 10/21/19 09:15: WBC 7.9, RBC 3.27 L, Hgb 9.2 L, Hct 30.6 L, MCV 93.6, MCH 28.0, MCHC 29.9 L, RDW 15.6, Plt Count 359, MPV 8.3, Neut % (Auto) 69.1, Lymph % (Auto) 20.2, [place] % (Auto) 6.5, Eos % (Auto) 3.5, Baso % (Auto) 0.6, Neut # (Auto) 5.4, Lymph # (Auto) 1.6, [place] # (Auto) 0.5, Eos # (Auto) 0.3, Baso # (Auto) 0.1 10/21/19 09:15: Sodium 135 L, Potassium 3.6, Chloride 90 L, Carbon Dioxide 38 H, Anion Gap 10.6, BUN 27 H, Creatinine 1.00, Estimated Creat Clear 99, Estimated GFR 73, Est GFR ( Amer) 89, Glucose 194 H, Calcium 8.7 10/21/19 10:49: Activated Clotting Time 368 H* 10/21/19 21:24: POC Glucose 175 H 10/22/19 06:32: POC Glucose 236 H 10/22/19 06:44: WBC 11.3 H D, RBC 2.32 L D, Hgb 6.5 L* D, Hct 21.2 L*, MCV 91.4, MCH 28.1, MCHC 30.8 L, RDW 16.4, Plt Count 314, MPV 9.6, Neut % (Auto) 73.5, Lymph % (Auto) 16.6, [place] % (Auto) 7.6, Eos % (Auto) 2.0, Baso % (Auto) 0.3, Neut # (Auto) 8.3 H, Lymph # (Auto) 1.9, [place] # (Auto) 0.9, Eos # (Auto) 0.2, Baso # (Auto) 0.0 10/22/19 06:44: Sodium 135 L, Potassium 5.2 H D, Chloride 95 L, Carbon Dioxide 35 H, Anion Gap 10.2, BUN 50 H D, Creatinine 0.80, Estimated Creat Clear 93, Estimated GFR 95, Est GFR ( Amer) 115 D, Glucose 233 H D, Calcium 8.1 L 10/22/19 08:05: Blood Type A Positive, Antibody Screen Negative, Crossmatch ([facility]) See Detail I & O for Last 24 hours: Intake & Output 10/19/19 10/20/19 10/21/19 10/22/19 11:59 11:59 11:59 11:59 Intake Total 240 / 240 610 / 610 Output Total 700 / 700 Balance 240 / 240 -90 / -90 Weight 230 lb 216 lb 1 oz - Constitutional no acute distress - *Routine HEENT Exam Head: Present: normocephalic Eye: Present: PERRL ENT: Present: mucous membranes moist - *Routine Neck Exam Present: supple. Absent: lymphadenopathy - *Routine Respiratory Exam Present: CTA bilaterally - *Routine Cardiovascular Exam Present: RRR - *Routine Abdominal Exam Present: soft, normoactive bowel sounds. Absent: tenderness - *Routine Extremities Exam Present: full ROM. Absent: cyanosis, clubbing, edema - *Routine Skin Exam Present: warm. Absent: rash - *Routine Neurological Exam Present: alert, oriented X3 - Routine Psychiatric Exam Present: normal affect Hospital Course Hospital Course: transfuse 4 units prbc and transfer to . dr tobar accepted pt. dr moreira talked to dr tobar and gave report. waiting for bed. Results Labs on day of discharge: Labs from last 24 hours 10/22/19 10/22/19 10/22/19 08:05 06:44 06:44 WBC 11.3 H D RBC 2.32 L D Hgb 6.5 L* D Hct 21.2 L* MCV 91.4 MCH 28.1 MCHC 30.8 L RDW 16.4 Plt Count 314 MPV 9.6 Neut % (Auto) 73.5 Lymph % (Auto) 16.6 [place] % (Auto) 7.6 Eos % (Auto) 2.0 Baso % (Auto) 0.3 Neut # (Auto) 8.3 H Lymph # (Auto) 1.9 [place] # (Auto) 0.9 Eos # (Auto) 0.2 Baso # (Auto) 0.0 Activated Clotting Time Sodium 135 L Potassium 5.2 H D Chloride 95 L Carbon Dioxide 35 H Anion Gap 10.2 BUN 50 H D Creatinine 0.80 Estimated Creat Clear 93 Estimated GFR 95 Est GFR ( Amer) 115 D Glucose 233 H D POC Glucose Calcium 8.1 L Blood Type A Positive Antibody Screen Negative Crossmatch ([facility]) See Detail 10/22/19 10/21/19 10/21/19 06:32 21:24 10:49 WBC RBC Hgb Hct MCV MCH MCHC RDW Plt Count MPV Neut % (Auto) Lymph % (Auto) [place] % (Auto) Eos % (Auto) Baso % (Auto) Neut # (Auto) Lymph # (Auto) [place] # (Auto) Eos # (Auto) Baso # (Auto) Activated Clotting Time 368 H* Sodium Potassium Chloride Carbon Dioxide Anion Gap BUN Creatinine Estimated Creat Clear Estimated GFR Est GFR ( Amer) Glucose POC Glucose 236 H 175 H Calcium Blood Type Antibody Screen Crossmatch ([facility]) 10/21/19 10/21/19 09:15 09:15 WBC 7.9 RBC 3.27 L Hgb 9.2 L Hct 30.6 L MCV 93.6 MCH 28.0 MCHC 29.9 L RDW 15.6 Plt Count 359 MPV 8.3 Neut % (Auto) 69.1 Lymph % (Auto) 20.2 [place] % (Auto) 6.5 Eos % (Auto) 3.5 Baso % (Auto) 0.6 Neut # (Auto) 5.4 Lymph # (Auto) 1.6 [place] # (Auto) 0.5 Eos # (Auto) 0.3 Baso # (Auto) 0.1 Activated Clotting Time Sodium 135 L Potassium 3.6 Chloride 90 L Carbon Dioxide 38 H Anion Gap 10.6 BUN 27 H Creatinine 1.00 Estimated Creat Clear 99 Estimated GFR 73 Est GFR ( Amer) 89 Glucose 194 H POC Glucose Calcium 8.7 Blood Type Antibody Screen Crossmatch ([facility]) - Additional Comments rounded with lillie all orders per lillie DS: Diagnosis - Discharge Diagnosis (1) GI bleeding Status: Acute (2) S/P coronary artery stent placement Status: Acute (3) Automatic implantable cardiac defibrillator in situ Status: Chronic (4) Coronary arteriosclerosis Status: Chronic (5) Diabetes mellitus Status: Chronic (6) History of coronary artery bypass graft Status: Chronic (7) Hyperlipidemia Status: Chronic (8) Hypertension Status: Chronic Discharge Plan - Patient Discharge Instructions ACTIVITY: Continue current activity DIET: continue same diet - Follow up Plan Disposition: Xfer Short-Term Hosp Home Medications: Home Medications Medication Instructions Recorded Confirmed Type multivitamin 1 tab PO DAILY 08/26/17 10/16/19 History albuterol sulfate 2.5 mg INHALATION QID #90 ml 07/02/18 10/16/19 Rx insulin lispro protamine-lispro 47 unit SQ DAILY ml 06/03/19 10/16/19 History 100 unit/mL (75-25) subcutaneous susp carbidopa 10 mg-levodopa 100 mg 1 tab PO HS #90 tab 08/19/19 10/16/19 Rx disintegrating tablet gabapentin 600 mg tablet 600 mg PO QID #120 tab 08/19/19 10/16/19 Rx tamsulosin 0.4 mg capsule See Rx Instructions .ROUTE 09/14/19 10/16/19 Rx .COMPLEX #90 each atorvastatin 40 mg tablet 40 mg PO DAILY tab 10/16/19 10/16/19 History carvedilol 3.125 mg tablet 3.125 mg PO BID tab 10/16/19 10/16/19 History clopidogrel 75 mg tablet 75 mg PO DAILY tab 10/16/19 10/16/19 History fenofibrate nanocrystallized 145 325 mg PO DAILY tab 10/16/19 10/16/19 History mg tablet furosemide 80 mg tablet 80 mg PO DAILY PRN 10/16/19 10/16/19 History insulin glargine 100 unit/mL (3 37 unit SQ QHS #3 ml 10/16/19 Rx mL) subcutaneous pen pantoprazole 40 mg tablet,delayed PO 10/16/19 10/16/19 History release sucralfate 1 gram tablet 1 g PO QID tab 10/16/19 10/16/19 History Prescriptions/Medication Reconciliation: Continued gabapentin 600 mg tablet 600 mg PO QID #120 tab atorvastatin 40 mg tablet 40 mg PO DAILY tab clopidogrel 75 mg tablet 75 mg PO DAILY tab fenofibrate nanocrystallized 145 mg tablet 325 mg PO DAILY tab pantoprazole 40 mg tablet,delayed release PO sucralfate 1 gram tablet 1 g PO QID tab insulin glargine 100 unit/mL (3 mL) subcutaneous pen 37 unit SQ QHS #3 ml multivitamin 1 tab PO DAILY albuterol sulfate 2.5 mg INHALATION QID #90 ml insulin lispro protamine-lispro 100 unit/mL (75-25) subcutaneous susp 47 unit SQ DAILY ml carbidopa 10 mg-levodopa 100 mg disintegrating tablet 1 tab PO HS #90 tab tamsulosin 0.4 mg capsule See Rx Instructions .ROUTE .COMPLEX #90 each carvedilol 3.125 mg tablet 3.125 mg PO BID tab furosemide 80 mg tablet 80 mg PO DAILY PRN PRN Reason: Fluid - Problem Reconciliation Problems Reviewed?: Yes
[2019-10-22 13:25] LABS: Hematocrit 31.1 % (42.0-52.0)
[2019-10-22 13:27] LABS: Hemoglobin 10.4 g/dL (14.1-18.0)
== END 2019-10-22 13:44 | disposition short-term general hospital (02) | DRG 246 ==
LOC: CATHLAB 08:19 → 2ND 14:20
PROVIDERS: ADMIT Emergency Medicine; ATTEND Internal Medicine
CPT/HCPCS: 36415; 80048; 82962; 85014; 85018; 85025; 85347; 86850; 92937; 93459; 94761; 99152; 99153; C1725; C1760; C1766; C1769; C1874; C1876; C1894; C9604; J1644; P9016; Q9967

== ENCOUNTER 2020-01-26 13:29 | Observation (INO) | payer MEDICARE, MEDICAID, SELFPAY ==
[2020-01-26] VITALS (16 sets, daily range): BP systolic 135–175; BP diastolic 65–98; PULSE 72–90; RESP 15–22; TEMP 36.6–37; O2SAT 98–100; BMI 32.1; BMI 26.9
--- NOTE | 2020-01-26 | XR_ITS ---
PROCEDURE: XR CHEST PORTABLE CLINICAL HISTORY: SOA COMPARISON: [id number] XR chest portable from 06/13/2018 XR CHEST PORTABLE from 11/11/2019 XR CHEST PORTABLE from 11/11/2019 CT CHEST WO CON from 01/26/2020 FINDINGS: Patient is status post CABG and there is a transvenous pacemaker again noted. Heart is enlarged. Patchy left lower lobe infiltrate, patchy right lower lobe infiltrate, and small right pleural effusion is noted. IMPRESSION: Bilateral lower lobe infiltrates, small right pleural effusion, status post CABG, pacemaker, cardiomegaly Dictated by: Noah Watson 01/27/2020 08:20 Electronically signed by Noah Watson in [place] 01/27/2020 08:20
--- NOTE | 2020-01-26 14:42 | CT_ITS ---
PROCEDURE: CT CHEST WO CON CLINICAL INDICATION: Shortness of breath COMPARISON: [id number] CT abdomen pelvis w con from 12/19/2017 . XR CHEST PORTABLE from 11/11/2019 TECHNIQUE: Axial images obtained with sagittal and coronal reformats. All CT scans at the facility use one or more dose reduction, viz: automated exposure control, ma/kV adjustment per patient size (including targeted exams where dose is matched to indication, i.e. head), or iterative reconstruction technique. FINDINGS: Tracheobronchial tree is unremarkable. There is dense consolidation of the right middle lobe and right lower lobe. There is a moderate size right pleural effusion. Patchy infiltrates are noted throughout the left lower lobe. There is a small left pleural effusion. Mostly subcentimeter mediastinal lymph nodes are noted. The patient is status post CABG and a pacemaker is noted. Heart is enlarged and there are coronary artery calcifications. Partially visualized upper abdominal structures, soft tissues and bony structures are unremarkable. The patient is status post cholecystectomy IMPRESSION: Status post CABG, pacemaker, dense consolidation of the right middle lobe and right lower lobe, moderate size right pleural effusion, small left pleural effusion, patchy left lower lobe infiltrates, cardiomegaly Dictated by: Noah Watson 01/26/2020 15:33 Electronically signed by Noah Watson in [place] 01/26/2020 15:33
--- NOTE | 2020-01-26 14:55 | PC.NURSE ---
Pt to rad.
[2020-01-26 16:57] LABS: Basophils # 0.1 K/mm3 (0-0.2); Basophils % 0.9 % (0.1-2.0); Eosinophils # 0.5 K/mm3 (0.0-0.4); Eosinophils % 8.1 % (0.1-12.0); Hematocrit 38.6 % (42.0-52.0); Lymphocytes # 1.5 K/mm3 (0.7-4.5); Lymphocytes % 26.5 % (10-50); Mean Corpuscular Hemoglobin 28.2 pg (27.0-31.2); Mean Corpuscular Volume 90.9 fl (80-94); Mean Platelet Volume 8.4 fl (7.4-10.4); Monocytes # 0.4 K/mm3 (0.1-1.0); Neutrophils # 3.3 K/mm3 (1.8-7.8); Neutrophils % 57.5 % (37.0-80.0); Platelet Count 160 K/mm3 (142-424); Red Blood Count 4.25 M/mm3 (4.60-6.20); Red Cell Distribution Width 17.9 % (11.5-17.5); White Blood Count 5.7 K/mm3 (4.8-10.8)
[2020-01-26 17:04] LABS: Chloride 88 mmol/L (98-107); Potassium 3.2 mmoL/L (3.5-5.1); Sodium 142 mmol/L (136-145)
[2020-01-26 17:06] LABS: Amylase 42 U/L (30-110); Blood Urea Nitrogen 20 mg/dl (9-20); Creatinine Clearance Estimated 97 mL/min (50-200); Estimated Glomerular Filt Rate 111 ml/min (>60); GFR (African American) 134 ML/MIN (>60); Lactic Acid 0.7 mmol/L (0.7-2.1)
[2020-01-26 17:07] LABS: Alanine Aminotransferase 16 U/L (12-78); Albumin Level 3.4 g/dl (3.5-5.0); Albumin/Globulin Ratio 1.1 (1.1-1.8); Alkaline Phosphatase 86 U/L (38-126); Aspartate Amino Transferase 38 U/L (17-59); Bilirubin,Total 0.8 mg/dl (0.2-1.3); Calcium 8.8 mg/dl (8.4-10.2); Globulin 3.1 g/dL (1.3-3.2); Glucose 95 mg/dl (74-100); Total Protein,Serum 6.5 g/dl (6.3-8.2)
[2020-01-26 17:17] LABS: Anion Gap 7.2 mEq/L (5-15); Carbon Dioxide 50 mmol/L (22.0-30.0)
[2020-01-26 17:19] LABS: Troponin I 0.16 ng/ml (0.00-0.034)
--- NOTE | 2020-01-26 17:54 | PC.NURSE ---
dr riley paged and speaking with dr quiros
--- NOTE | 2020-01-26 17:57 | PC.NURSE ---
Dr Agustín mata for Dr Sainz pt.
--- NOTE | 2020-01-26 18:00 | PC.NURSE ---
REPORT RECEIVED FROM BINH CURTIS. UPON GOING IN TO ADMINISTER MEDS THAT I SAW ON THE OCT, PT DID NOT HAVE AN IV TO ADMINISTER. THIS NURSE AND CHARGE NURSE CURRENTLY WORKING ON OBTAINING IV ACCESS
--- NOTE | 2020-01-26 18:04 | HMH.EDWEAK ---
ED Disposition Clinical Impression: Elevated troponin I level, Bilateral pneumonia Disposition: Admitted as Observation Condition on Discharge: Good Additional Instructions: Spoke to Dr. Storey for admission for this patient consult Dior. Referrals: Nitesh Nugent MD [Primary Care Provider] - - Critical Care Critical Care Time: No Attestation: On 01/26/20, the high probability of a clinically significant, sudden or life threatening deterioration of the following system(s) required my full and direct attention, intervention and personal management. The time I documented below is in addition to time spent performing reported procedures but includes the following listed in this critical care notation. Medical Decision Making - Medical Records Medical records reviewed: Yes: I reviewed the patient's medical records. - Alexandro Inquiry Pt receiving controlled substance: No Vital Signs: 01/26/20 13:30 01/26/20 13:49 01/26/20 14:26 Temperature 97.8 F Temperature Source Oral Pulse Rate [Right Brachial] 80 78 83 Respiratory Rate 16 Blood Pressure [Right Arm] 162/96 H 145/85 H 156/77 H Blood Pressure Mean [Right Arm] 118 105 103 Blood Pressure Source [Right Arm] Automatic Cuff Automatic Cuff Automatic Cuff Blood Pressure Position [Right Arm] Supine Sitting Sitting 02 Sat by Pulse Oximetry 99 100 100 Oxygen Delivery Method Nasal Cannula Nasal Cannula Nasal Cannula Oxygen Flow Rate (LPM) 4 4 4 01/26/20 15:40 01/26/20 16:59 01/26/20 17:19 Temperature Temperature Source Pulse Rate [Right Brachial] 77 76 78 Respiratory Rate 18 Blood Pressure [Right Arm] 154/85 H 157/76 H 157/76 H Blood Pressure Mean [Right Arm] 108 103 103 Blood Pressure Source [Right Arm] Automatic Cuff Automatic Cuff Blood Pressure Position [Right Arm] Sitting Sitting 02 Sat by Pulse Oximetry 100 100 100 Oxygen Delivery Method Nasal Cannula Nasal Cannula Oxygen Flow Rate (LPM) 4 4 01/26/20 17:55 Temperature Temperature Source Pulse Rate [Right Brachial] 79 Respiratory Rate 18 Blood Pressure [Right Arm] 157/79 H Blood Pressure Mean [Right Arm] 105 Blood Pressure Source [Right Arm] Automatic Cuff Blood Pressure Position [Right Arm] Supine 02 Sat by Pulse Oximetry 100 Oxygen Delivery Method Oxygen Flow Rate (LPM) - Lab Data Lab results reviewed: Yes: I reviewed the patient's lab results. Lab Results 01/26/20 16:44: WBC 5.7, RBC 4.25 L, Hgb 12.0 L, Hct 38.6 L, MCV 90.9, MCH 28.2, MCHC 31.0 L, RDW 17.9 H, Plt Count 160, MPV 8.4, Neut % (Auto) 57.5, Lymph % (Auto) 26.5, [place] % (Auto) 7.0, Eos % (Auto) 8.1, Baso % (Auto) 0.9, Neut # (Auto) 3.3, Lymph # (Auto) 1.5, [place] # (Auto) 0.4, Eos # (Auto) 0.5 H, Baso # (Auto) 0.1 01/26/20 16:44: Sodium 142, Potassium 3.2 L, Chloride 88 L, Carbon Dioxide 50 H*, Anion Gap 7.2, BUN 20, Creatinine 0.70, Estimated Creat Clear 97, Estimated GFR 111, Est GFR ( Amer) 134, Glucose 95, Calcium 8.8, Total Bilirubin 0.8, AST 38, ALT 16, Alkaline Phosphatase 86, Troponin I 0.16 H, Total Protein 6.5, Albumin 3.4 L, Globulin 3.1, Albumin/Globulin Ratio 1.1, Amylase 42 01/26/20 16:44: Lactate 0.7 01/26/20 16:44: Lipase 101 Result diagrams: 01/26/20 16:44 01/26/20 16:44 Orders (Tests/Meds): ED MEDICATIONS Discontinued Medications Generic Name Dose Route Start Last Admin Trade Name Hansq PRN Reason Stop Dose Admin Aspirin 324 mg 01/26/20 18:19 Aspirin 81mg Chewable Tablet PO 01/26/20 18:20 ONCE ONE Dexamethasone Sodium Phosphate 12 mg 01/26/20 14:44 Decadron 4mg/Ml 1ml Vial IV 01/26/20 14:45 ONCE ONE Sodium Chloride 500 mls @ 999 mls/hr 01/26/20 14:45 Sod Chlor 0.9% 1000ml Bag IV 01/26/20 15:15 .Q31M JEFFREY Ticagrelor 180 mg 01/26/20 18:19 Brilinta 90mg Tablet PO 01/26/20 18:20 ONCE ONE ORDERS Category Date Time Status Respiratory Panel (COVID), PCR Stat Lab 01/26/20 18:05 Ordered Troponin I Q3H Lab 01/26/20 18:44
--- NOTE | 2020-01-26 18:07 | ECG_ITS ---
APPROVED REPORT Exam: Resting ECG HR:80 bpm ECG Measurements Heart Rate 80 AXES ND 152 P 74 QRSd 120 QRS 70 QT 418 T 180 QTc 482 <Conclusion> Normal sinus rhythm Incomplete left bundle branch block Nonspecific ST and T wave abnormality Abnormal ECG Electronically signed by : Hermes Randolph, 02/01/2020 12:07:12
[2020-01-26 18:09] LABS: Lipase 101 U/L (23-300)
--- NOTE | 2020-01-26 18:17 | PC.NURSE ---
Dr Randolph paged again.
[2020-01-26 18:28] LABS: Adenovirus,PCR Not Detected (NotDetected); Bordetella Pertussis Not Detected (NotDetected); Chlamydophila Pneumoniae, PCR Not Detected (NotDetected); Coronavirus 19, PCR Not Detected (NotDetected); Coronavirus 229E Not Detected (NotDetected); Coronavirus NL63 Not Detected (NotDetected); Coronavirus OC43 Not Detected (NotDetected); Coronovirus HKU1,PCR Not Detected (NotDetected); Human Metapneumovirus Not Detected (NotDetected); Influenza A, PCR Not Detected (NotDetected); Influenza AH1, 2009 Not Detected (NotDetected); Influenza AH1, PCR Not Detected (NotDetected); Influenza AH3,PCR Not Detected (NotDetected); Influenza B, PCR Not Detected (NotDetected); Mycoplasma Pneumoniae, PCR Not Detected (NotDected); Parainfluenza 1, PCR Not Detected (NotDetected); Parainfluenza 2, PCR Not Detected (NotDetected); Parainfluenza 3, PCR Not Detected (NotDetected); Parainfluenza 4, PCR Not Detected (NotDetected); Respiratory Syncytial Virus Not Detected (NotDetected); Rhinovirus/Enterovirus Not Detected (NotDetected)
--- NOTE | 2020-01-26 18:28 | PC.NURSE ---
pt to be admitted, DTA entered pt will wait for COVID test before going to [facility] surg
--- NOTE | 2020-01-26 19:09 | PC.NURSE ---
STILL CURRENTLY ATTEMPTING TO OBTAIN IV ACCESS
[2020-01-26 19:36] LABS: Troponin I 0.16 ng/ml (0.00-0.034)
--- NOTE | 2020-01-26 20:25 | PC.NURSE ---
called perla with registration with admit info
--- NOTE | 2020-01-26 21:07 | PC.NURSE ---
repeat chest xray performed
--- NOTE | 2020-01-26 21:07 | HMH.HP ---
*Admission Date: 01/26/20 *Chief complaint: sob *History of present illness: this wm became sob at home w/o fever or chest pain - has hx of cad with stents in 10/22- - [place] had been in [place] earlier for ugi bleed- pt was in in 11/22 - ugi bleed- and in rehab at [facility] till and did ok till now - low sat brought to er - no hx of dvt and pe -4-year-old gentleman presents the ED with an acute onset of shortness of breath that started this morning. Patient does state that he has been kind of fatigued for the last week more so than usual and the shortness of breath started really about 3 days ago but really hit him today. Patient states that he has had some subjective fevers but nothing objective. Patient denies any chest pain. Patient also denies any cough.Patient denies any recent cough, patient denies any sore throat or headache, patient denies any loss of taste or smell, patient denies any malaise but positive for fatigue, patient denies any abdominal pain nausea vomiting or diarrhea. MD Complaint: generalized weakness pt was admitted with ivf and abx - and card eval [facility] History I have reviewed the patient's past medical history: Yes Medical History: Reports:: Chronic Obstructive Pulmonary Disease (COPD), Coronary Artery Disease, Diabetes Mellitus Type 2, Hyperlipidemia, Hypertension, Internal Pacemaker, Lung Disease, Myocardial Infarction Denies:: Cancer, Diabetes Mellitus Type 1, MRSA, Seizures *Have you ever received a pneumonia vaccine?: No *Have you received a flu vaccine this season?: Yes Other Medical History: Reports: Arthritis, Cataracts Laterality Cases: Left: Other Other Surgeries: Yes: Angioplasty, CABG (4 vessel), Cardiac Catheterization, Cardiac Surgery, Cholecystectomy, Coronary Stent, Pacemaker, Other Amputation: Yes Fractures: No - *Social History Smoking Status: Former smoker Tobacco Type: pipe, cigars #Yrs smoked (if former smoker): 40 Alcohol Intake: never Alcohol Intake Frequency:: 3 or more drinks per day Substance Use Type: denies use *Occupational Status:: other Housing: other Household Members: spouse *Travel in the last 8 weeks: None Family Hx:: Asthma, Cancer, Coronary Artery Disease, Diabetes, Heart Attack, Hyperlipidemia, Hypertension Review of Systems - Review of Systems Review of systems:: pertinent systems reviewed and negative unless documented below - Constitutional Denies headache(s) - Eyes Denies change in vision - ENT Denies sore throat - *Cardiovascular Denies chest pain - *Respiratory Reports cough, Reports shortness of breath - *Gastrointestinal Denies abdominal pain, Denies bloating - *Genitourinary Denies blood in urine - *Musculoskeletal Denies joint pain, Denies limited joint movement - Integumentary/Breasts Denies rash - *Neurologic Denies headache(s), Denies loss of vision - Psychiatric Denies confusion Meds Home Medications Medication Instructions Recorded Confirmed Type multivitamin 1 tab PO DAILY 08/26/17 01/26/20 History insulin lispro protamine-lispro 47 unit SQ DAILY ml 06/03/19 01/26/20 History 100 unit/mL (75-25) subcutaneous susp carbidopa 10 mg-levodopa 100 mg 1 tab PO HS #90 tab 08/19/19 01/26/20 Rx disintegrating tablet gabapentin 600 mg tablet 600 mg PO QID #120 tab 08/19/19 01/26/20 Rx fenofibrate nanocrystallized 145 325 mg PO DAILY tab 10/16/19 01/26/20 History mg tablet furosemide 80 mg tablet 80 mg PO DAILY PRN 10/16/19 01/26/20 History insulin glargine 100 unit/mL (3 37 unit SQ QHS #3 ml 10/16/19 01/26/20 Rx mL) subcutaneous pen pantoprazole 40 mg tablet,delayed 40 mg PO DAILY 10/16/19 01/26/20 History release Albuterol Sulfate [Albuterol 2.5 mg INHALATION QID 11/10/19 01/26/20 History 0.083% 2.5mg/3mL neb] Cyanocobalamin (Vitamin B-12) 1,000 mcg PO DAILY 11/10/19 01/26/20 History [Vitamin B-12 1000mcg Tablet] Tamsulosin HCl See Rx Instructions .ROUTE .COMPLEX 11/10/19 01/26/20 Hist
[2020-01-26 21:35] LABS: Troponin I 0.17 ng/ml (0.00-0.034)
--- NOTE | 2020-01-26 21:51 | PC.NURSE ---
PATIENT WAS BROUGHT TO THE MED/SURG UNIT BY CINDY WINSLOW at 2114.
--- NOTE | 2020-01-26 21:58 | PC.NURSE ---
patient was brought to the floor by rafita WINSLOW at 5.
[2020-01-27] VITALS (12 sets, daily range): BP systolic 161–177; BP diastolic 71–90; PULSE 70–110; RESP 18–20; TEMP 36.3–37.1; O2SAT 92–98; BMI 27.1
[2020-01-27 01:36] LABS: Microscopic, Urine URINE MICROSCOPIC (MICROSCOPIC)
[2020-01-27 01:38] LABS: Appearance,Urine CLEAR (Clear); Bilirubin,Urine Negative (Negative); Blood, Urine Negative (Negative); Color,Urine YELLOW (Yellow); Glucose,Urine (UA) Negative (Negative); Ketones,Urine TRACE (Negative); Leukocyte Esterase,Urine Negative (Negative); Nitrate,Urine Negative (Negative); PH,Urine 5.5 (5.0-8.5); Protein,Urine Negative (Negative); Urobilinogen,Urine 0.2 EU/dl (0.2)
[2020-01-27 01:42] LABS: Bacteria,Urine Trace /lpf; WBC,Urine Occasional #/hpf (0-3)
--- NOTE | 2020-01-27 04:16 | PC.NURSE ---
Addendum entered by Melanie Tenorio RN 01/27/20 04:28: NSR with PACs PVCs and ST depression on telemetry Original Note: Pt is A&OX4. Pt on 3L@ NC. pt diminished throughout. Pt has a 20G in right jugular SL. Pt has bilateral blanchable redness buttock. Pt received bath and surgical prep for city recorder consult this am. Pt rested well this shift.
[2020-01-27 04:45] LABS: POC Glucose,Bedside 152 (70-110)
[2020-01-27 05:23] LABS: Chloride 88 mmol/L (98-107); Potassium 3.4 mmoL/L (3.5-5.1); Sodium 138 mmol/L (136-145)
[2020-01-27 05:26] LABS: Alanine Aminotransferase 16 U/L (12-78); Albumin Level 3.2 g/dl (3.5-5.0); Albumin/Globulin Ratio 1.1 (1.1-1.8); Alkaline Phosphatase 87 U/L (38-126); Aspartate Amino Transferase 39 U/L (17-59); Blood Urea Nitrogen 20 mg/dl (9-20); Calcium 8.6 mg/dl (8.4-10.2); Creatinine Clearance Estimated 82 mL/min (50-200); Estimated Glomerular Filt Rate 132 ml/min (>60); GFR (African American) 160 ML/MIN (>60); Globulin 2.9 g/dL (1.3-3.2); Glucose 162 mg/dl (74-100); Total Protein,Serum 6.1 g/dl (6.3-8.2)
[2020-01-27 05:35] LABS: Basophils % 0.2 % (0.1-2.0); Eosinophils % 0.3 % (0.1-12.0); Hematocrit 36.2 % (42.0-52.0); Hemoglobin 11.4 g/dL (14.1-18.0); Lymphocytes # 0.8 K/mm3 (0.7-4.5); Lymphocytes % 16.6 % (10-50); Mean Corpuscular HGB Conc 31.4 g/dL (31.8-35.4); Mean Corpuscular Hemoglobin 28.1 pg (27.0-31.2); Mean Corpuscular Volume 89.7 fl (80-94); Mean Platelet Volume 8.6 fl (7.4-10.4); Monocytes # 0.1 K/mm3 (0.1-1.0); Monocytes % 2.2 % (1.7-9.3); Neutrophils % 80.6 % (37.0-80.0); Platelet Count 172 K/mm3 (142-424); Red Blood Count 4.03 M/mm3 (4.60-6.20); Red Cell Distribution Width 18.2 % (11.5-17.5)
[2020-01-27 05:42] LABS: Anion Gap 12.4 mEq/L (5-15); Carbon Dioxide 41 mmol/L (22.0-30.0)
--- NOTE | 2020-01-27 06:00 | XR_ITS ---
PROCEDURE: XR CHEST PORTABLE CLINICAL HISTORY: Pleural effusion and pneumonia COMPARISON: XR CHEST PORTABLE from 11/11/2019 XR CHEST PORTABLE from 11/11/2019 XR CHEST PORTABLE from 01/26/2020 CT CHEST WO CON from 01/26/2020 FINDINGS: Left lung base is now clear. Heart is enlarged. Moderate size right pleural effusion and right lower lobe infiltrate is again noted. IMPRESSION: As above Dictated by: Noah Watson 01/27/2020 09:29 Electronically signed by Noah Watson in [place] 01/27/2020 09:29
--- NOTE | 2020-01-27 07:18 | P.CONPHA_ITS ---
[facility] Pharmacy VTE Monitoring - Patient Demographics Admission date: 01/26/20 Report Date: 01/27/20 Time: 07:18 Allergies/Adverse Reactions: Patient Allergies No Known Drug Allergies Allergy (Unknown, Verified 01/26/20 13:40) -- Height: 1.8 m Weight: 87.742 kg Patient Problems: Current Active Problems Elevated troponin I level (Acute) Bilateral pneumonia (Acute) CAP (community acquired pneumonia) (Acute) - VTE Risk Labs: VTE Related Lab Results Hgb 11.4 g/dL (14.1-18.0) L 01/27/20 05:25 Hct 36.2 % (42.0-52.0) L 01/27/20 05:25 Plt Count 172 K/mm3 (142-424) 01/27/20 05:25 BUN 20 mg/dl (9-20) 01/27/20 04:55 Creatinine 0.60 mg/dl (0.66-1.25) L 01/27/20 04:55 Estimated Creat Clear 82 mL/min (50-200) 01/27/20 04:55 Was VTE Risk Assessment Performed: Yes VTE Score: 6 VTE Risk Level: Moderate Risk Clinical Trial Participant: No - Prophylaxis VTE Prophylaxis Ordered?: Yes Types of VTE Prophylaxis: TEDS Knee High, Pharmacological Pharmacologic Type: Enoxaparin
--- NOTE | 2020-01-27 07:47 | PC.NURSE ---
Pt experienced some hallucinations early this am although answered orientation questions appropriately. Pt c/o seeing a truck drive right by , dogs running around in bathroom, cats under the bed, fireflies and bugs crawling on the bed, and rabbits. VSS, NSR on tele, FS 152, and recent am labs show CO2 has decreased to [address] Randolph, on-call for Dr. Nugent, was notified and no new orders received at this time.
--- NOTE | 2020-01-27 08:00 | CA_ITS ---
APPROVED REPORT EXAM: Comprehensive 2D, Doppler, and color-flow Echocardiogram Botanical Technical Officer: Sally Forde CRT Ht: 5 ft 10 in Wt: 193lbs BSA: 2.06 BP: 143/75 mmHg Indications: COPD, Murmur, Shortness of Breath, Fatigue, CAD, Hyperlipidemia, Hypertension/HDD, cabg, stents, icd, old mi 2D Dimensions LVOT 2.77 cm (M/F) 1.5-2.5 M-Mode Dimensions RVDd 2.81 cm (0.9-2.6) LVDd 6.22 cm (3.5-5.7) LVDs 5.09 cm (3.5-5.7) IVSd 1.20 cm (0.6-1.1) PWd 0.67 cm (0.6-1.1) EF (Teich) 36.90% FS 18.20% EDV (Teich) 195.40 mL ESV (Teich) 123.20 mL LV Diastology E/A Ratio 1.53 Mitral Valve MV A Velocity 71.00 (40-130 cm/s) Left Ventricle Atrium is mildly enlarged, left ventricle is normal size, mild concentric left ventricular hypertrophy, visually estimated ejection fraction 45%, there is moderate hypokinesis involving the inferior wall. Diastolic parameters are inconclusive. Right Ventricle Right atrium and right ventricle mildly enlarged with normal contractility, historically patient has an AICD, the lead is not visualized in the right ventricle. Aortic Valve Aortic valve is thickened and calcified leaflet chordae display good mobility, there is no aortic stenosis or aortic insufficiency. Mitral Valve Mitral valve leaflets are minimally thickened, there is mild mitral regurgitation. Tricuspid Valve Tricuspid valve is grossly normal, there is mild tricuspid regurgitation. Tricuspid regurgitation jet velocity is inadequate for calculation of the right ventricular systolic pressure. Pulmonic Valve Pulmonic valve is poorly visualized. Great Vessels Aortic root is normal size. Pericardium No significant pericardial effusion noted. Conclusion 1. Mild biatrial enlargement, normal left ventricular size, mild concentric left ventricular hypertrophy, visually estimated ejection fraction 45% with segmental wall motion abnormality described above, diastolic parameters are inconclusive. 2. Thickened and calcified aortic valve without aortic stenosis aortic insufficiency. 3. Mild mitral and tricuspid regurgitation. 4. No significant pericardial effusion noted. Electronically signed by : Thomas Rivera, 01/28/2020 10:59:50
--- NOTE | 2020-01-27 08:15 | CA_ITS ---
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: CT Indications Shortness of breath History of Smoking swellinf/homans pos Risk Factors Obesity Vein Imaging EIV (R): Not Visualized CFV (R): compressive, spontaneous, phasic, augmentation SFJ (R): compressive, spontaneous, phasic, augmentation FEM (R): compressive, spontaneous, phasic, augmentation POP (R): compressive, spontaneous, phasic, augmentation DFV (R): compressive, spontaneous, phasic, augmentation PTV (R): compressive, spontaneous, phasic, augmentation SSV (R): Not Visualized Peroneals (R):compressive, spontaneous, phasic, augmentation GAS (R): Not Visualized EIV (L): Not Visualized CFV (L): compressive, spontaneous, phasic, augmentation SFJ (L): compressive, spontaneous, phasic, augmentation FEM (L): compressive, spontaneous, phasic, augmentation POP (L): compressive, spontaneous, phasic, augmentation DFV (L): compressive, spontaneous, phasic, augmentation PTV (L): compressive, spontaneous, phasic, augmentation GSV (L): Not Visualized SSV (L): Not Visualized Peroneals (L):compressive, spontaneous, phasic, augmentation GAS (L): Not Visualized Findings Bilateral venous negative for DVT/SVT. Vessels compressible. Conclusion Bilateral venous negative for DVT/SVT. Vessels compressible. Electronically signed by : Noah Watson, 01/28/2020 09:18:57
--- NOTE | 2020-01-27 08:16 | HMH.ACPN2 ---
Internal Medicine - PN: Subj *Date: 01/27/20 *Time: 08:22 Interval history: 74-year-old male patient resting quietly in bed, he reports he is feeling better this morning. Oxygen saturations 96% on 2 L per nasal cannula, denies chest pain. Will have IV placed and chest CT with PE protocol. Awaiting cardiology input Exam Vital signs and Labs for Last 24 Hours: Temp Pulse Resp BP Pulse Ox 98.7 F 77 20 163/73 H 97 01/27/20 08:00 01/27/20 08:00 01/27/20 08:00 01/27/20 08:00 01/27/20 08:00 Laboratory Results - last 24 hr 01/26/20 16:44: WBC 5.7, RBC 4.25 L, Hgb 12.0 L, Hct 38.6 L, MCV 90.9, MCH 28.2, MCHC 31.0 L, RDW 17.9 H, Plt Count 160, MPV 8.4, Neut % (Auto) 57.5, Lymph % (Auto) 26.5, [place] % (Auto) 7.0, Eos % (Auto) 8.1, Baso % (Auto) 0.9, Neut # (Auto) 3.3, Lymph # (Auto) 1.5, [place] # (Auto) 0.4, Eos # (Auto) 0.5 H, Baso # (Auto) 0.1 01/26/20 16:44: Sodium 142, Potassium 3.2 L, Chloride 88 L, Carbon Dioxide 50 H*, Anion Gap 7.2, BUN 20, Creatinine 0.70, Estimated Creat Clear 97, Estimated GFR 111, Est GFR ( Amer) 134, Glucose 95, Calcium 8.8, Total Bilirubin 0.8, AST 38, ALT 16, Alkaline Phosphatase 86, Troponin I 0.16 H, Total Protein 6.5, Albumin 3.4 L, Globulin 3.1, Albumin/Globulin Ratio 1.1, Amylase 42 01/26/20 16:44: Lactate 0.7 01/26/20 16:44: Lipase 101 01/26/20 18:15: Chlamy pneumoniae PCR Not detected, Adenovirus (PCR) Not detected, B. pertussis DNA (PCR) Not detected, Coronavirus OC43 (PCR) Not detected, Coronavirus HKU1 (PCR) Not detected, Coronavirus 229E (PCR) Not detected, COVID-19 PCR Not detected, Coronavirus NL63 (PCR) Not detected, Human Metapneumovir PCR Not detected, Influenza A (H1) PCR Not detected, Influ A (H1N1/09) PCR Not detected, Influenza A (H3) PCR Not detected, Influenza Type A (PCR) Not detected, Influenza Type B (PCR) Not detected, M. pneumoniae (PCR) Not detected, Parainfluenza 1 (PCR) Not detected, Parainfluenza 2 (PCR) Not detected, Parainfluenza 3 (PCR) Not detected, Parainfluenza 4 (PCR) Not detected, RSV (PCR) Not detected, Entero/Rhino (PCR) Not detected 01/26/20 19:05: Troponin I 0.16 H 01/26/20 21:10: Troponin I 0.17 H 01/27/20 01:20: Urine Color Yellow, Urine Appearance Clear, Urine pH 5.5, Ur Specific [place] 1.020, Urine Protein Negative, Urine Glucose (UA) Negative, Urine Ketones Trace, Urine Blood Negative, Urine Nitrate Negative, Urine Bilirubin Negative, Urine Urobilinogen 0.2, Ur Leukocyte Esterase Negative, Urine WBC Occasional, Ur Squamous Epith Cells 3-5, Urine Bacteria Trace 01/27/20 04:34: POC Glucose 152 H 01/27/20 04:55: Sodium 138, Potassium 3.4 L, Chloride 88 L, Carbon Dioxide 41 H*, Anion Gap 12.4, BUN 20, Creatinine 0.60 L, Estimated Creat Clear 82, Estimated GFR 132, Est GFR ( Amer) 160, Glucose 162 H D, Calcium 8.6, Total Bilirubin 1.0, AST 39, ALT 16, Alkaline Phosphatase 87, Total Protein 6.1 L, Albumin 3.2 L, Globulin 2.9, Albumin/Globulin Ratio 1.1 01/27/20 05:25: WBC 5.0, RBC 4.03 L, Hgb 11.4 L, Hct 36.2 L, MCV 89.7, MCH 28.1, MCHC 31.4 L, RDW 18.2 H, Plt Count 172, MPV 8.6, Neut % (Auto) 80.6 H, Lymph % (Auto) 16.6, [place] % (Auto) 2.2, Eos % (Auto) 0.3, Baso % (Auto) 0.2, Neut # (Auto) 4.0, Lymph # (Auto) 0.8, [place] # (Auto) 0.1, Eos # (Auto) 0.0, Baso # (Auto) 0.0 I & O for Last 24 hours: Intake & Output 01/24/20 01/25/20 01/26/20 01/27/20 23:59 23:59 23:59 23:59 Intake Total 240 / 240 Output Total 550 / 550 300 / 300 Balance -550 / -550 -60 / -60 Weight 193 lb 7 oz 193 lb 7.008 oz - Constitutional no acute distress - *Routine HEENT Exam ENT: Present: mucous membranes dry - *Routine Neck Exam Present: trachea midline. Absent: JVD, tracheal deviation - *Routine Respiratory Exam Present: diminished air movement. Absent: accessory muscle use - *Routine Cardiovascular Exam Present: RRR, murmur - *Routine Abdominal Exam Present: soft, normoactive bowel sounds. Absent: tenderness - *Routine Extremities Exam Present: pu
--- NOTE | 2020-01-27 08:20 | CT_ITS ---
PROCEDURE: CT ANGIO CHEST CLINCIAL INDICATION: R/O PE COMPARISON: [facility] CT angio chest from 11/18/2017 TECHNIQUE: IV Contrast: 70ML OPTIRAY 350 Axial images obtained with sagittal and coronal reformats. All CT scans at the facility use one or more dose reduction, viz: automated exposure control, ma/kV adjustment per patient size (including targeted exams where dose is matched to indication, i.e. head), or iterative reconstruction technique. FINDINGS: The patient is status post CABG. Pacemaker is noted. Tracheobronchial tree is unremarkable. There is a moderate size right pleural effusion with probable compressive atelectasis of the majority of the right lower lobe, and dependent portions of the right middle lobe and right upper lobes. There are a few patchy infiltrates in the left lower lobe. Left basilar pleural calcifications are present. The thyroid is unremarkable. There is no CT evidence of pulmonary emboli. The partially visualized upper abdominal structures and the adrenal glands unremarkable. Soft tissues are unremarkable. IMPRESSION: Moderate-sized right pleural effusion with compressive atelectasis of the right hemithorax as described above, left lower lobe infiltrate, cardiomegaly, status post CABG, pacemaker, no CT evidence of pulmonary emboli Dictated by: Noah Watson 01/27/2020 10:57 Electronically signed by Noah Watson in [place] 01/27/2020 10:57
--- NOTE | 2020-01-27 09:03 | HMH.PHAINT ---
Home medication reconciliation completed using pt interview and lists from cardiology office, primary care physician ( Dr. Nugent) office and [facility] pharmacy.
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
--- NOTE | 2020-01-27 09:28 | PC.NURSE ---
Patient was given a 3ml sodium chloride treatment to induce a sputum. Therapist was unable to obtain a sputum at that time.
[2020-01-27 11:48] LABS: POC Glucose,Bedside 180 (70-110)
--- NOTE | 2020-01-27 16:02 | PC.NURSE ---
PATIENT A&O X4, INTERMITTENT HALLUCINATIONS. THIS RN AND FAMILY MEMBERS HAVE REASSURED PATIENT THAT THE ITEMS HE ARE SEEING AND NOT THERE. PATIENT VERBALIZES AN OKAY WHEN APPROACHED. THIS RN REMOVED PATIENT'S IJ, PATIENT TOLERATED WELL. NO DRAINAGE NOTED ON DRESSING. PATIENT CONTINUES TO COMPLAIN OF NOT ABLE TO BREATHE. THIS RN EDUCATES PATIENT ABOUT TAKING SLOW DEEP BREATHES INTO THE NOSE AND OUT OF THE MOUTH. PATIENT VERBALIZES AN UNDERSTANDING BUT TAKES QUICK SLOW BREATHES THRU THE MOUTH. WITH EACH COMPLAINT, THIS RN HAS ASSESSED PATIENT'S O2. O2 STATS ARE BETWEEN 93 - 95% ON 2L NC. PATIENT IS EXHAUSTED AND CONTINUES TO RESIST TAKING A NAP. SPOUSE AT BEDSIDE, STATES THAT PATIENT TAKES 4 TYLENOL PMS TO SLEEP EVERY NIGHT AND WOULD ALSO LIKE HIS GABAPENTIN ORDERED. THIS RN SPOKE WITH JENNIFER MANN, PER MACKENZIE KAT, WILL DISCUSS WITH DR. CHOUDHARY AND FORM A PLAN. NO OTHER NEEDS OR CONCERNS AT THIS TIME.
[2020-01-27 17:06] LABS: POC Glucose,Bedside 156 (70-110)
--- NOTE | 2020-01-27 19:07 | PC.NURSE ---
report given to carlos
[2020-01-27 20:45] LABS: POC Glucose,Bedside 160 (70-110)
--- NOTE | 2020-01-27 21:32 | PC.NURSE ---
Pt's room air sat = 87% at rest.
[2020-01-28] VITALS (13 sets, daily range): BP systolic 115–162; BP diastolic 66–102; PULSE 69–100; RESP 16–20; TEMP 36.4–36.9; O2SAT 92–100; BMI 28.1
--- NOTE | 2020-01-28 03:08 | PC.NURSE ---
A&OX4 but has had several episodes of visual hallucinations this shift. during these episodes pt is still able to answer questions appropriately. Pt lungs are diminished in bases. O2 sats between 92-97 on 2L NC. Pt has continue light bleeding from lovenox in lower right ABD, pressure held and gauze and tegaderm apply changed twice this shift. pt received bath and bed change. Pt recieved PRN sleep meds but has not slept this shift. Pt has had no complaints of pain or SOA
[2020-01-28 05:53] LABS: POC Glucose,Bedside 169 (70-110)
[2020-01-28 06:48] LABS: Basophils % 0.2 % (0.1-2.0); Eosinophils % 0.1 % (0.1-12.0); Hematocrit 36.3 % (42.0-52.0); Hemoglobin 11.9 g/dL (14.1-18.0); Lymphocytes # 1.1 K/mm3 (0.7-4.5); Lymphocytes % 19.3 % (10-50); Mean Corpuscular Hemoglobin 28.5 pg (27.0-31.2); Mean Corpuscular Volume 86.6 fl (80-94); Mean Platelet Volume 8.9 fl (7.4-10.4); Monocytes # 0.1 K/mm3 (0.1-1.0); Monocytes % 2.7 % (1.7-9.3); Neutrophils # 4.2 K/mm3 (1.8-7.8); Neutrophils % 77.7 % (37.0-80.0); Platelet Count 178 K/mm3 (142-424); Red Blood Count 4.19 M/mm3 (4.60-6.20); Red Cell Distribution Width 18.4 % (11.5-17.5); White Blood Count 5.5 K/mm3 (4.8-10.8)
[2020-01-28 06:56] LABS: Chloride 91 mmol/L (98-107); Sodium 137 mmol/L (136-145)
[2020-01-28 06:57] LABS: Potassium 4.3 mmoL/L (3.5-5.1)
[2020-01-28 07:00] LABS: Anion Gap 11.3 mEq/L (5-15); Blood Urea Nitrogen 24 mg/dl (9-20); Carbon Dioxide 39 mmol/L (22.0-30.0); Creatinine Clearance Estimated 85 mL/min (50-200); Estimated Glomerular Filt Rate 163 ml/min (>60); GFR (African American) 197 ML/MIN (>60)
[2020-01-28 07:06] LABS: Calcium 8.1 mg/dl (8.4-10.2); Glucose 196 mg/dl (74-100)
--- NOTE | 2020-01-28 08:34 | HMH.ACPN ---
Internal Medicine - PN: Subj *Date: 01/28/20 *Time: 08:35 Interval history: Seen on rounds this morning for Dr. Nugent. He was admitted for progressive shortness of breath. Patient is on home oxygen. Patient has a cardiac history, significant for status post coronary bypass in 2002 he underwent stenting in October 2019, saphenous vein graft to the RCA was successfully stented. He presented with an elevated troponin, thought to represent increased demand. Dr. Rader has seen and evaluated. Chest studies to date have included a chest x-ray, a CT of the chest, and a CTA of the chest. There is no evidence of pulmonary embolism. There is effusion and infiltrate noted on the right. There is a presence of an AICD, and equivocal cardiomegaly. He has undergone cardiac echo, preliminary report suggest an ejection fraction of 40 to 45%. He is hypertensive, lisinopril and Coreg are being restarted. Respiratory viral panel is negative, especially for COVID-19. Blood cultures are done, they are pending. Sputum cultures have been ordered. Patient is noted to have diabetes, he is covered on a sliding scale insulin regimen. The staff did note some hallucinations during the night, he is on Sinemet for restless leg syndrome. This may be a cause. He is awake, lucid and clear this morning. He relays less dyspnea, no active chest pain. He was given an incentive spirometer this morning, we will encourage him to increase his activity. He is on Rocephin and azithromycin for the pneumonia. Exam Vital signs and Labs for Last 24 Hours: Temp Pulse Resp BP Pulse Ox 97.7 F 90 18 162/102 H 95 01/28/20 04:00 01/28/20 06:34 01/28/20 04:00 01/28/20 04:00 01/28/20 06:34 Laboratory Results - last 24 hr 01/27/20 11:40: POC Glucose 180 H 01/27/20 16:55: POC Glucose 156 H 01/27/20 20:30: POC Glucose 160 H 01/28/20 05:41: POC Glucose 169 H 01/28/20 06:18: WBC 5.5, RBC 4.19 L, Hgb 11.9 L, Hct 36.3 L, MCV 86.6, MCH 28.5, MCHC 33.0, RDW 18.4 H, Plt Count 178, MPV 8.9, Neut % (Auto) 77.7, Lymph % (Auto) 19.3, [place] % (Auto) 2.7, Eos % (Auto) 0.1, Baso % (Auto) 0.2, Neut # (Auto) 4.2, Lymph # (Auto) 1.1, [place] # (Auto) 0.1, Eos # (Auto) 0.0, Baso # (Auto) 0.0 01/28/20 06:18: Sodium 137, Potassium 4.3 D, Chloride 91 L, Carbon Dioxide 39 H, Anion Gap 11.3, BUN 24 H, Creatinine 0.50 L, Estimated Creat Clear 85, Estimated GFR 163, Est GFR ( Amer) 197 D, Glucose 196 H, Calcium 8.1 L I & O for Last 24 hours: Intake & Output 01/25/20 01/26/20 01/27/20 01/28/20 23:59 23:59 23:59 23:59 Intake Total 891 / 1051 1227 / 1227 Output Total 550 / 550 400 / 400 300 / 300 Balance -550 / -550 491 / 651 927 / 927 Weight 193 lb 7 oz 194 lb 0.108 oz 201 lb 4 oz - Constitutional chronically ill appearing - *Routine HEENT Exam Head: Absent: atraumatic Eye: Absent: conjunctival icterus, periorbital swelling ENT: Present: mucous membranes moist - *Routine Neck Exam Absent: JVD, carotid bruit - Routine Chest/Breast/Axilla Exam Chest wall: Absent: chest tube - *Routine Respiratory Exam Present: rhonchi, wheezes, crackles. Absent: accessory muscle use, respiratory distress - *Routine Cardiovascular Exam Present: RRR. Absent: bradycardia, tachycardia - *Routine Abdominal Exam Present: soft, surgical scars. Absent: tenderness, distended - *Routine Extremities Exam Absent: cyanosis, edema, full ROM, calf tenderness - *Routine Skin Exam Present: scars - *Routine Neurological Exam Present: alert, oriented X3, normal speech. Absent: facial asymmetry - Routine Psychiatric Exam Present: normal affect, normal thought process, cooperative. Absent: anxious, agitated, paranoid Assessment and Plan (1) CAP (community acquired pneumonia) Current visit: Yes Status: Acute Qualifiers: Laterality: unspecified laterality Qualified Code(s): J18.9 - Pneumonia, unspecified organism Category: Medical Code(s): J18.9 - Pneumonia, unspe
--- NOTE | 2020-01-28 08:38 | HMH.PNCARD ---
Subjective Date: 01/28/20 Time: 08:38 Principal diagnosis: SOA, CP Interval history: 74-year-old white male in bed in no acute distress. Denies any new complaints and states he is feeling better. CTA of the chest showed no evidence of pulmonary emboli. He does have infiltrate in the left lower lobe with compression atelectasis due to pleural effusion in the right lower lobe. Exam Vital signs and Labs for Last 24 Hours: Temp Pulse Resp BP Pulse Ox 97.7 F 90 18 162/102 H 95 01/28/20 04:00 01/28/20 06:34 01/28/20 04:00 01/28/20 04:00 01/28/20 06:34 Laboratory Results - last 24 hr 01/27/20 11:40: POC Glucose 180 H 01/27/20 16:55: POC Glucose 156 H 01/27/20 20:30: POC Glucose 160 H 01/28/20 05:41: POC Glucose 169 H 01/28/20 06:18: WBC 5.5, RBC 4.19 L, Hgb 11.9 L, Hct 36.3 L, MCV 86.6, MCH 28.5, MCHC 33.0, RDW 18.4 H, Plt Count 178, MPV 8.9, Neut % (Auto) 77.7, Lymph % (Auto) 19.3, [place] % (Auto) 2.7, Eos % (Auto) 0.1, Baso % (Auto) 0.2, Neut # (Auto) 4.2, Lymph # (Auto) 1.1, [place] # (Auto) 0.1, Eos # (Auto) 0.0, Baso # (Auto) 0.0 01/28/20 06:18: Sodium 137, Potassium 4.3 D, Chloride 91 L, Carbon Dioxide 39 H, Anion Gap 11.3, BUN 24 H, Creatinine 0.50 L, Estimated Creat Clear 85, Estimated GFR 163, Est GFR ( Amer) 197 D, Glucose 196 H, Calcium 8.1 L I & O for Last 24 hours: Intake & Output 01/25/20 01/26/20 01/27/20 01/28/20 11:59 11:59 11:59 11:59 Intake Total 240 / 240 1878 / 1878 Output Total 850 / 850 400 / 400 Balance -610 / -610 1478 / 1478 Weight 194 lb 0.108 oz 201 lb 4 oz - *Routine HEENT Exam Head: Present: normocephalic Eye: Present: EOMI, PERRL ENT: Present: mucous membranes moist - *Routine Respiratory Exam Present: CTA bilaterally. Absent: accessory muscle use, rales, rhonchi, wheezes Comments: Decreased breath sounds right lower lobe posteriorly - *Routine Cardiovascular Exam Present: RRR. Absent: murmur, gallop, rubs - *Routine Neurological Exam Present: alert, oriented X3, moving all extremities Progress Note: A&P (1) CAP (community acquired pneumonia) Status: Acute Current Visit: Yes (2) Elevated troponin I level Status: Acute Current Visit: Yes (3) History of coronary artery bypass graft Status: Chronic Current Visit: No (4) Systolic heart failure Status: Chronic Current Visit: No (5) Diabetes mellitus Status: Chronic Current Visit: No (6) Coronary arteriosclerosis Status: Chronic Current Visit: No (7) COPD (chronic obstructive pulmonary disease) with chronic bronchitis Status: Acute Current Visit: Yes (8) AICD (automatic cardioverter/defibrillator) present Status: Chronic Current Visit: Yes (9) Hyperlipidemia Status: Chronic Current Visit: No (10) Hypertension Status: Chronic Current Visit: No Assessment and Plan for All Diagnoses:: 1. Continue current medical therapy with increase in blood pressure medications for better control. 2. We will hold clopidogrel due to patient being 3 months out from last coronary stent and history of recurrent GI bleed requiring hospitalization. Currently hemoglobin is stable 3. Will discuss with Dr. Rader and review films from most recent cardiac cath to decide on further evaluation and treatment.
--- NOTE | 2020-01-28 09:46 | HMH.PTEV ---
Physical Therapy Evaluation Rehab PT IP Evaluation Start: 01/27/20 21:38 Freq: ONCE Status: Active Protocol: Document 01/28/20 09:42 PWJOE (Rec: 01/28/20 09:46 [email or web address] [id number]) Subjective/History History History This is the initial IP PT evaluation for Jagjit Servin . Pt is a 74 y/o male admitted to [facility] for increased weakness and cardiac issues. Subjective Subjective Pt rpeorts he is very weak Rehab PT IP Eval Objective Appearance Patient Behavior Appropriate,Cooperative Patient Orientation Person,Place Difficulty following instructions none Speech Pattern Soft-Spoken Ambulation Patient Able to Ambulate No Ambulation Observation IP General Gait Pattern Observation Ataxic Gait,Shuffling Step, Trunk Posterior to MILIND Ambulation Distance (feet) 2 Ambulation Assistive Device Rolling Walker Ambulation Ability Total/Dependent (100%) Balance Ability to Arise Unable Sitting Balance Leans or slides in chair Standing Balance Unsteady Dynamic Sitting Balance Ability Poor Dynamic Standing Balance Ability Zero Transfers Bed Transfer Ability Moderate x 1 (50% assist) Chair Transfer Ability Maximum x 1 (75% assist) Sit to Stand Bed Transfer Ability Maximum x 1 (75% assist) Sit to Stand Chair Transfer Ability Maximum x 1 (75% assist) Rehab PT IP prob,goals,plan Problems Date of Evaluation: 01/28/20 PT IP Problems Bed Mobility,Transfers,Gait, Self care,Safety Rehab Potential Rehab Potential Poor Equipment Needs Assistive Devices Rolling / Wheeled Walker Plan PT Intervention Plan Bed Mobility,Transfers,Gait, Balance,Therapeutic Exercise PT Plan Frequency BID Duration LOS Discharge Goals Bed Transfer Ability Moderate x 1 (50% assist) Sit to Stand Chair Transfer Ability Maximum x 1 (75% assist) Ambulation Assistive Device Rolling Walker Ambulation Distance (feet) 2 Discharge Plan PT Discharge Plan Pt is in need of significant rehab to allow return home w/ elderly spouse. Pt would benefit from stay at SNF for rehab G -code Required No Eval Complexity Eval Charge Codes 54151 - Moderate Complexity PHYSICIAN CERTIFICATION: I certify the specified therapy services for Jagjit Simmonserson are required, authorized, and rev
--- NOTE | 2020-01-28 09:53 | HMH.OTEV ---
OT Inpatient Evaluation Rehab OT IP Evaluation Start: 01/27/20 21:39 Freq: ONCE Status: Complete Protocol: Document 01/28/20 09:48 [facility] (Rec: 01/28/20 09:52 [facility] [id number]) Rehab OT IP Assessment Subjective History Pt oriented to person and place on arrival. Pt agreeable to engage in therapy evaluation. Pt is a 74 year old male who was admitted via ED on 01/25/30 due to onset of SOB and fatigue. Pt has spent the past few months in rehab at [facility] due to a GI bleed in november. Pt has been home with his since the end of December. Pt explains normally at home he is in a wheelchair and able to transfer with walker. Pt claims he does require some assistance with ADLs from , especially with bathing. Pt is dependent on to complete IADL's. Subjective Just tired. Objective Patient Orientation Person,Place Upper Extremity Gross ROM WFL Transfer Training Sit/Stand Transfer Assist Level Maximum x 2 (75% assist) Chair Transfer Ability Maximum x 2 (75% assist) Chair Transfer Technique Sit to/from Ambulatory Chair Transfer Assistive Devices Rolling Walker Rehab OT IP prob,goals,plan Problems Date of Evaluation: 01/28/20 OT IP Problems Bed Mobility,Transfers,Gait, Balance,Self care,Safety Rehab Potential Rehab Potential Good Equipment Needs Assistive Devices Rolling / Wheeled Walker Plan OT intervention Plan Bed Mobility,Transfers,Gait, Balance,Self care,Safety, Therapeutic Exercise OT Plan Frequency Daily Duration LOS Discharge Goals Bed Mobility Ability Assistance x1 Sit to Stand Chair Transfer Ability Moderate x 1 (50% assist) Chair Transfer Ability Moderate x 1 (50% assist) Chair Transfer Technique Sit to/from Ambulatory Chair Transfer Assistive Devices Rolling Walker Feeding Ability Independent Lower Body Dressing Ability Assistance X1 Upper Body Dressing Ability Assistance X1 Bathing Ability Assistance x1 Performing Toilet Hygiene Ability Assistance X1 Overall Commode/Toilet Transfer Ability Assistance x1 Com
--- NOTE | 2020-01-28 11:03 | SW/DCPLANNER ---
Addendum entered by [facility] 01/29/20 11:13: [place] has called stating this patient can be accepted for today. Patient will be accepted under care of Dr Gonzalez. I will inform patients nurse of number to call report to and I will inform patients of situation. Dr Nugent and Dr Bates are aware that patient can discharge today. Addendum entered by [facility] 01/29/20 09:49: I have spoke with [place] from [facility] and she has stated that she is still waiting to hear back from insurance regarding precert. [place] will follow up with me once she hears from insurance. I have informed [place] that this patient is ready for discharge. Addendum entered by [facility] 01/28/20 12:02: [place] has also stated that this patient does NOT require any further COVID testing unless signs/symptoms begin prior to discharge. Addendum entered by [facility] 01/28/20 11:53: [place] from Admissions with [facility] has called me and stated they will begin the precert for this patient. [place] has stated once precert is completed they can accept tomorrow or Saturday. I have informed patients and she agrees with this plan. Original Note: I have spoke with this patient and his regarding discharge plans. PT has stated that patient will need SNF level of care at time of discharge. I did speak with patient and he stated he was in a [place] facility last month and did not prefer to return. I did explain to patient that his may not be able to care for him at home due to being a max assist. Patient asked that I call and speak with his . I called and spoke with Mrs. Servin this morning. Mrs Servin stated that patient was recently at [facility] in [place]. agreed that patient would need placement at time of discharge. preferred [facility] or [facility] at time of discharge. [facility] is not in network with patients [facility] at this time. Patient information has been faxed to [facility]. I will continue to follow up with: patient, , [facility] and MD. Patient could be ready for discharge tomorrow.
[2020-01-28 11:56] LABS: POC Glucose,Bedside 244 (70-110)
--- NOTE | 2020-01-28 14:32 | PC.NURSE ---
Pt has been alert and oriented this shift with no hallucinations noted. Did note pts stool to have a dark color greenish/black and have a strong odor. Did call and speak to Dr. Bates's office ([place]) and receive order for occult stool. Have sent this to lab, awaiting results. Pt has no c/o at this time. Have applied dsg to coccyx and ulcer on R foot. Pt is pallor in color. CB in reach. VSS. Will cont to mx. Did receive permission verbally from pt to take pics of wounds. Pt is sitting up in chair at this time. Therapy continues. Will cont to mx this shift.
--- NOTE | 2020-01-28 14:41 | PC.NURSE ---
Have also elevated pts bue on pillows in order to decrease edema in nesha hands.
[2020-01-28 16:16] LABS: POC Glucose,Bedside 240 (70-110)
[2020-01-28 16:25] LABS: Occult Blood,Stool Negative (Negative)
[2020-01-28 20:34] LABS: POC Glucose,Bedside 243 (70-110)
--- NOTE | 2020-01-28 20:59 | PC.NURSE ---
RT checked Room air saturation at rest=85%, placed patient back on 2L NC
--- NOTE | 2020-01-28 21:45 | PC.NURSE ---
URINE NOTED CLEAR AND YELLOW AT THIS TIME, VOIDED PER URINAL
[2020-01-28 21:48] LABS: Adenovirus F 40/41, stool Not Detected (NotDetected); Astrovirus Not Detected (NotDetected); Campylobacter Not Detected (NotDetected); Cryptosporidium Not Detected (NotDetected); Cyclospora Cayetanesis Not Detected (NotDetected); Entamoeba histolytica Not Detected (NotDetected); Enteroaggregative E coli Not Detected (NotDetected); Enterotoxigenic E coli Not Detected (NotDetected); Giardia lamblia Not Detected (NotDetected); Norovirus Not Detected (NotDetected); Plesimonas Shigalloides, PCR Not Detected (NotDetected); Rotavirus A Not Detected (NotDetected); Salmonella, PCR Not Detected (NotDetected); Sapovirus Not Detected (NotDetected); Shiga-like toxin E coli Not Detected (NotDetected); Shigella Enterovasive E coli Not Detected (NotDetected); Vibrio Cholerae Not Detected (NotDetected); Vibrio, PCR Not Detected (NotDetected); Yersinia Entercolitica, PCR Not Detected (NotDetected)
[2020-01-29] VITALS (8 sets, daily range): BP systolic 119–158; BP diastolic 73–87; PULSE 79–90; RESP 16–18; TEMP 36.6–36.7; O2SAT 87–98; BMI 28.1
[2020-01-29 00:25] LABS: Clostridium Difficile A/B, PCR Detected (NotDetected)
[2020-01-29 00:26] LABS: Enteropathogenic E coli Detected (NotDetected)
--- NOTE | 2020-01-29 01:55 | PC.NURSE ---
SPOKE WITH PHARMACY IN REGARDS TO 125MG PO VANC DOSE SCHEDULED FOR Q6H, OBTAINED PER Andrey MCKEONHIP PHARMACIST VERIFIED ORDERED MED, DOSE, AND FREQUENCY IS APPROPRIATE FOR PATIENT.
--- NOTE | 2020-01-29 03:44 | PC.NURSE ---
SPOKE WITH Andrey CASILLAS, PHARMACIST IN REGARDS TO ADMINISTERING PO VANC OUT OF THE 1000MG VIAL, 500MG VIAL NOT AVAILABLE AND ON READING THE LABEL FOR INSTRUCTIONS OF RECONSTITUTION FOR ORAL USE, THE LABEL READS FOR IV AND INJECTIONS ONLY. Andrey CASILLAS VERIFIED THAT OKAY TO MIX AND GIVE DESPITE NO MENTION OF ORAL USE ON LABEL.
--- NOTE | 2020-01-29 05:01 | PC.NURSE ---
A&OX4. PT HAS TOLERATED 2L NC WELL THROUGHOUT SHIFT. NSR W PACS ON TELE. HEART RATE REGULAR. RESPIRATIONS REGULAR AND UNLABORED. LUNG SOUNDS DIMINISHED THROUGHOUT. NO COUGH NOTED. NO EDEMA NOTED. HAND WATERWAY TRAFFIC CHECKER EQUAL. ACTIVE BOWEL SOUNDS NOTED IN ALL 4 QUADRANTS. SOFT AND NONTENDER. STOOL SAMPLE OBTAINED AND SENT TO LAB. LAB CALLED AND NOTIFIED US THAT IT CAME BACK POSITIVE FOR C. DIFF AND E. COLI. PT PLACED IN CONTACT ENTERIC PRECAUTIONS. NOTIFIED. VANCOMYCIN 125MG PO ORDERED Q 6HOUS. PT TOLERATED FIRST DOSE WELL. PT HAS USED URINAL THROUGHOUT SHIFT AND HAS BEEN CHANGED NEEDED. URINE NOTED TO BE CLEAR AND YELLOW. PT HAS BEEN TURNED Q [address] TO BUTTOCK AREA. BRUISE NOTED ABOVE POLYNEM. BLANCHABLE REDNESS NOTED TO BOTTOM. PT IN LOWEST POSITION. CALL LIGHT WITHIN REACH. VSS. NO CONCERNS AT THIS TIME. WILL CONTINUE TO MONITOR.
[2020-01-29 05:48] LABS: POC Glucose,Bedside 244 (70-110)
[2020-01-29 06:42] LABS: Basophils % 0.1 % (0.1-2.0); Eosinophils % 0.1 % (0.1-12.0); Hematocrit 34.4 % (42.0-52.0); Hemoglobin 10.9 g/dL (14.1-18.0); Lymphocytes # 0.6 K/mm3 (0.7-4.5); Lymphocytes % 15.9 % (10-50); Mean Corpuscular HGB Conc 31.7 g/dL (31.8-35.4); Mean Corpuscular Hemoglobin 28.2 pg (27.0-31.2); Mean Corpuscular Volume 88.9 fl (80-94); Mean Platelet Volume 8.8 fl (7.4-10.4); Monocytes # 0.2 K/mm3 (0.1-1.0); Monocytes % 5.4 % (1.7-9.3); Neutrophils # 3.1 K/mm3 (1.8-7.8); Neutrophils % 78.6 % (37.0-80.0); Platelet Count 142 K/mm3 (142-424); Red Blood Count 3.86 M/mm3 (4.60-6.20); Red Cell Distribution Width 18.5 % (11.5-17.5); White Blood Count 3.9 K/mm3 (4.8-10.8)
[2020-01-29 06:43] LABS: Chloride 87 mmol/L (98-107); Sodium 137 mmol/L (136-145)
[2020-01-29 06:44] LABS: Potassium 3.2 mmoL/L (3.5-5.1)
[2020-01-29 06:46] LABS: Blood Urea Nitrogen 25 mg/dl (9-20); Creatinine Clearance Estimated 85 mL/min (50-200); Estimated Glomerular Filt Rate 132 ml/min (>60); GFR (African American) 160 ML/MIN (>60)
[2020-01-29 06:47] LABS: Glucose 224 mg/dl (74-100)
[2020-01-29 06:55] LABS: Anion Gap 7.2 mEq/L (5-15); Carbon Dioxide 46 mmol/L (22.0-30.0)
[2020-01-29 08:03] LABS: Magnesium 1.9 mg/dl (1.6-2.3)
--- NOTE | 2020-01-29 08:17 | HMH.PNCARD ---
Subjective Date: 01/29/20 Time: 08:17 Principal diagnosis: SOA, CP Interval history: 74 yo WM in bed in NAD. States his breathing is better. Denies any chest pain. Some swelling noted in hands. Chronic swelling in legs per patient. Exam Vital signs and Labs for Last 24 Hours: Temp Pulse Resp BP Pulse Ox 97.9 F 90 18 158/82 H 95 01/29/20 03:35 01/29/20 06:34 01/29/20 03:35 01/29/20 03:35 01/29/20 06:34 Laboratory Results - last 24 hr 01/28/20 11:10: POC Glucose 244 H 01/28/20 11:45: Stool Occult Blood Negative 01/28/20 15:52: POC Glucose 240 H 01/28/20 20:27: POC Glucose 243 H 01/28/20 21:40: Stl Aeromonas (PCR) Not detected, Stl C. cayetanensis PCR Not detected, Stool Rotavirus (PCR) Not detected, Stl Adenov F 40/41 PCR Not detected, Stool Astrovirus (PCR) Not detected, Stool Campylobacter PCR Not detected, Stl C.difficile Tox PCR Detected A, Stool Cryptosporidium PCR Not detected, Stl E.coli Shiga Tox PCR Not detected, Stool E coli O157 PCR Not detected, Stl Enterotoxigenic E PCR Not detected, Stool EPEC (PCR) Detected A, Stool EAEC (PCR) Not detected, Stl E. histolytica PCR Not detected, Stool Giardia Lamblia PCR Not detected, Stool Salmonella PCR Not detected, Stool Sapovirus (PCR) Not detected, Stl P. shigelloides PCR Not detected, Stl Shigella/EIEC PCR Not detected, St Y.enterocolitica PCR Not detected, Stool Vibrio (PCR) Not detected, Stl Vibrio cholerae PCR Not detected, Stl Norovirus GI/GII PCR Not detected 01/29/20 05:34: POC Glucose 244 H 01/29/20 05:50: WBC 3.9 L D, RBC 3.86 L, Hgb 10.9 L, Hct 34.4 L, MCV 88.9, MCH 28.2, MCHC 31.7 L, RDW 18.5 H, Plt Count 142, MPV 8.8, Neut % (Auto) 78.6, Lymph % (Auto) 15.9, [place] % (Auto) 5.4, Eos % (Auto) 0.1, Baso % (Auto) 0.1, Neut # (Auto) 3.1, Lymph # (Auto) 0.6 L, [place] # (Auto) 0.2, Eos # (Auto) 0.0, Baso # (Auto) 0.0 01/29/20 05:50: Sodium 137, Potassium 3.2 L D, Chloride 87 L, Carbon Dioxide 46 H*, Anion Gap 7.2, BUN 25 H, Creatinine 0.60 L, Estimated Creat Clear 85, Estimated GFR 132, Est GFR ( Amer) 160, Glucose 224 H, Calcium 8.0 L 01/29/20 05:50: Magnesium 1.9 I & O for Last 24 hours: Intake & Output 01/26/20 01/27/20 01/28/20 01/29/20 11:59 11:59 11:59 11:59 Intake Total 240 / 240 1878 / 1878 1908 / 1908 Output Total 850 / 850 400 / 400 1125 / 1125 Balance -610 / -610 1478 / 1478 783 / 783 Weight 194 lb 0.108 oz 201 lb 4 oz 201 lb 2 oz Microbiology Reports for the Last 24 Hours: Microbiology 01/26/20 16:44 Blood Blood Culture - Preliminary NO GROWTH AFTER 48 HOURS 01/26/20 16:44 Blood Blood Culture - Preliminary NO GROWTH AFTER 48 HOURS - *Routine HEENT Exam Head: Present: normocephalic Eye: Present: EOMI, PERRL ENT: Present: mucous membranes moist - *Routine Respiratory Exam Present: CTA bilaterally. Absent: accessory muscle use, rales, rhonchi, wheezes - *Routine Cardiovascular Exam Present: RRR. Absent: murmur, gallop, rubs - *Routine Extremities Exam Present: edema. Absent: calf tenderness - *Routine Neurological Exam Present: alert, oriented X3, moving all extremities Progress Note: A&P (1) CAP (community acquired pneumonia) Status: Acute Current Visit: Yes (2) Elevated troponin I level Status: Acute Current Visit: Yes (3) History of coronary artery bypass graft Status: Chronic Current Visit: No (4) Systolic heart failure Status: Chronic Current Visit: No (5) Diabetes mellitus Status: Chronic Current Visit: No (6) Coronary arteriosclerosis Status: Chronic Current Visit: No (7) COPD (chronic obstructive pulmonary disease) with chronic bronchitis Status: Acute Current Visit: Yes (8) AICD (automatic cardioverter/defibrillator) present Status: Chronic Current Visit: Yes (9) Hyperlipidemia Status: Chronic Current Visit: No (10) Hypertension Status: Chronic Current Visit: No Assessmen
--- NOTE | 2020-01-29 08:22 | XR_ITS ---
PROCEDURE: XR CHEST PORTABLE CLINICAL HISTORY: pleural effusion COMPARISON: XR CHEST PORTABLE from 11/11/2019 XR CHEST PORTABLE from 01/26/2020 CT ANGIO CHEST from 01/27/2020 XR CHEST PORTABLE from 01/27/2020 FINDINGS: There are no interval changes. Small left pleural effusion and moderate size right pleural effusion is again noted. Heart is enlarged and pacemaker is demonstrated. IMPRESSION: No change as above Dictated by: Noah Watson 01/29/2020 09:40 Electronically signed by Noah Watson in [facility] 01/29/2020 09:40
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
[2020-01-29 11:24] LABS: POC Glucose,Bedside 239 (70-110)
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
--- NOTE | 2020-01-29 13:57 | PC.NURSE ---
PATIENT APPETITIE IMPROVED, PATIENT ATE 100% OF BREAKFAST AND LUNCH. TOLERATED MEALS WELL. PATIENT USES HIS INCENTIVE SPIROMETER EVERY HOUR AND TOLERATES WELL. THIS RN REMOVED OLD DRESSING FROM BUTTOCKS, DRESSING HAD SEROSANGUINEOUS DRAINAGE NOTED, THIS RN CLEANED AREA AND APPLIED NEW POLYMER COVERED WITH TEGADERM. THIS RN REMOVED OLD DRESSING FROM RIGHT LATERAL FOOT, SEROSANGUINEOUS DRAINAGE NOTED, CLEANED AREA AND APPLIED NEW POLYMER COVERED WITH TEGADERM. THIS RN PROVIDED D/C INFORMATION TO ROWDY PINEDO AT [facility]. THIS RN SPOKE WITH PATIENT ABOUT HIS PLAN. PATIENT AGREED BUT ASKED THIS RN TO NOTIFY HIS . THIS RN SPOKE WITH PATIENT'S DAUGHTER TO INFORM THEM THAT PATIENT WOULD BE LEAVING SOON AND THAT HE WANTS HIS HERE. PATIENT'S DAUGHTER STATED THAT SHE WAS WITH HER MOM AND THEY WOULD BE AT [facility] IN 5 MIN. NO OTHER NEEDS OR CONCERNS AT THIS TIME.
[2020-02-10 12:02] LABS: POC Glucose,Bedside 211 (70-110)
== END 2020-01-29 14:24 | DRG 194 ==
LOC: ER 18:12 → 2ND 20:33
PROVIDERS: Family Medicine; Nurse Practitioner Family; Physician Assistant; Admitting Provider Internal Medicine Adolescent Medicine; Emergency Provider Family Medicine; PCP Emergency Medicine; Visit Provider Emergency Medicine
DX: J18.9 Pneumonia, unspecified organism (principal); I50.22 Chronic systolic (congestive) heart failure; A04.72 Enterocolitis due to Clostridium difficile, not specified as recurrent; J90 Pleural effusion, not elsewhere classified; I11.0 Hypertensive heart disease with heart failure; E11.9 Type 2 diabetes mellitus without complications; J44.9 Chronic obstructive pulmonary disease, unspecified; I25.10 Atherosclerotic heart disease of native coronary artery without angina pectoris; I25.2 Old myocardial infarction; Z87.891 Personal history of nicotine dependence; Z79.51 Long term (current) use of inhaled steroids; Z79.899 Other long term (current) drug therapy; Z79.4 Long term (current) use of insulin; Z95.5 Presence of coronary angioplasty implant and graft; Z95.810 Presence of automatic (implantable) cardiac defibrillator; Z95.1 Presence of aortocoronary bypass graft; R06.02 Shortness of breath
CPT/HCPCS: 36415; 71045; 71250; 71275; 80048; 80053; 81001; 82150; 82272; 82962; 83605; 83690; 83735; 84484; 85025; 87040; 87506; 87581; 87633; 87798; 93005; 93306; 93970; 94640; 94760; 94761; 96365; 96367; 96375; 97110; 97162; 97165; 97530; 99285; G0328; G0378; J0456; J3370; Q9967

== ENCOUNTER 2020-02-10 07:43 | Observation (INO) | payer MEDICARE, MEDICAID, SELFPAY ==
[2020-02-10] VITALS (10 sets, daily range): BP systolic 89–115; BP diastolic 44–77; PULSE 71–78; RESP 16–21; TEMP 36.6–37.1; O2SAT 95–100; BMI 30.7; BMI 26.1
--- NOTE | 2020-02-10 07:40 | ECG_ITS ---
APPROVED REPORT Exam: Resting ECG HR:73 bpm ECG Measurements Heart Rate 73 AXES ME 156 P 57 QRSd 114 QRS 16 QT 418 T 220 QTc 460 <Conclusion> Normal sinus rhythm Possible Left atrial enlargement Incomplete right bundle branch block ST & T wave abnormality, consider inferolateral ischemia Prolonged QT Abnormal ECG Electronically signed by : Chepe Daigle, 02/10/2020 14:24:33
--- NOTE | 2020-02-10 07:46 | PC.NURSE ---
[facility] called and said that they was sorry that they didnt call earlier about the pt that they forgot about calling. advised that the nurse was in with the pt and they asked if we needed to know anything else at this time. advised them that the nurse would call them if they needed to ask questions, [phone] kyle was the charge nurse today.
[2020-02-10 08:04] LABS: Basophils # 0.1 K/mm3 (0-0.2); Basophils % 0.7 % (0.1-2.0); Eosinophils # 0.3 K/mm3 (0.0-0.4); Eosinophils % 4.1 % (0.1-12.0); Hematocrit 35.1 % (42.0-52.0); Hemoglobin 11.6 g/dL (14.1-18.0); Lymphocytes # 2.3 K/mm3 (0.7-4.5); Lymphocytes % 29.3 % (10-50); Mean Corpuscular Hemoglobin 28.6 pg (27.0-31.2); Mean Corpuscular Volume 86.5 fl (80-94); Mean Platelet Volume 9.5 fl (7.4-10.4); Monocytes # 0.7 K/mm3 (0.1-1.0); Monocytes % 8.3 % (1.7-9.3); Neutrophils # 4.6 K/mm3 (1.8-7.8); Neutrophils % 57.7 % (37.0-80.0); Platelet Count 151 K/mm3 (142-424); Red Blood Count 4.05 M/mm3 (4.60-6.20); Red Cell Distribution Width 17.5 % (11.5-17.5)
[2020-02-10 08:07] LABS: Potassium 4.2 mmoL/L (3.5-5.1); Sodium 130 mmol/L (136-145)
[2020-02-10 08:10] LABS: Alanine Aminotransferase 13 U/L (12-78); Albumin Level 3.6 g/dl (3.5-5.0); Albumin/Globulin Ratio 1.2 (1.1-1.8); Alkaline Phosphatase 61 U/L (38-126); Aspartate Amino Transferase 38 U/L (17-59); Bilirubin,Total 0.8 mg/dl (0.2-1.3); Blood Urea Nitrogen 37 mg/dl (9-20); Calcium 8.7 mg/dl (8.4-10.2); Creatinine Clearance Estimated 42 mL/min (50-200); Estimated Glomerular Filt Rate 31 ml/min (>60); GFR (African American) 38 ML/MIN (>60); Glucose 134 mg/dl (74-100); Total Protein,Serum 6.6 g/dl (6.3-8.2)
[2020-02-10 08:11] LABS: Chloride 68 mmol/L (98-107)
[2020-02-10 08:17] LABS: Appearance,Urine CLEAR (Clear); Bilirubin,Urine Negative (Negative); Blood, Urine Negative (Negative); Color,Urine YELLOW (Yellow); Glucose,Urine (UA) Negative (Negative); Ketones,Urine Negative (Negative); Leukocyte Esterase,Urine Negative (Negative); Microscopic, Urine URINE MICROSCOPIC (MICROSCOPIC); Nitrate,Urine Negative (Negative); Protein,Urine TRACE (Negative); Specific Gravity, Urine 1.015 (1.005-1.030); Urobilinogen,Urine 0.2 EU/dl (0.2)
[2020-02-10 08:18] LABS: Anion Gap 6.2 mEq/L (5-15); Carbon Dioxide 60 mmol/L (22.0-30.0)
--- NOTE | 2020-02-10 08:30 | PC.NURSE ---
straight cath 400cc urine returned
[2020-02-10 08:49] LABS: RBC,Urine Occasional #/hpf (0-3)
[2020-02-10 08:50] LABS: Squamous Epithelial Cell,Urine Occasional #/hpf (0-5)
--- NOTE | 2020-02-10 08:51 | PC.NURSE ---
kitchen brought tray for pt
--- NOTE | 2020-02-10 09:16 | HMH.EDRECH ---
ED Disposition Clinical Impression: MAXINE (acute kidney injury), AICD (automatic cardioverter/defibrillator) present, Obesity (BMI 30.0-34.9), S/P coronary artery stent placement Disposition: Admitted as Observation Condition on Discharge: Fair Referrals: Nitesh Nugent MD [Primary Care Provider] - - Critical Care Critical Care Time: No Attestation: On 02/10/20, the high probability of a clinically significant, sudden or life threatening deterioration of the following system(s) required my full and direct attention, intervention and personal management. The time I documented below is in addition to time spent performing reported procedures but includes the following listed in this critical care notation. Medical Decision Making - Medical Records Medical records reviewed: Yes: I reviewed the patient's medical records. - Alexandro Inquiry Pt receiving controlled substance: No Vital Signs: 02/10/20 07:44 02/10/20 08:07 02/10/20 08:54 Temperature 98 F Temperature Source Oral Pulse Rate [Left Radial] 77 72 71 Respiratory Rate 18 18 21 Blood Pressure [Right Arm] 109/51 L 100/46 L 89/44 L Blood Pressure Mean [Right Arm] 70 64 59 Blood Pressure Source [Right Arm] Automatic Cuff Automatic Cuff Blood Pressure Position [Right Arm] Sitting Sitting Supine 02 Sat by Pulse Oximetry 97 97 100 Oxygen Delivery Method Nasal Cannula Nasal Cannula Nasal Cannula Oxygen Flow Rate (LPM) 2 2 2 02/10/20 09:15 02/10/20 09:38 Temperature Temperature Source Pulse Rate [Left Radial] 72 74 Respiratory Rate 21 18 Blood Pressure [Right Arm] 107/48 L 110/77 Blood Pressure Mean [Right Arm] 67 88 Blood Pressure Source [Right Arm] Automatic Cuff Automatic Cuff Blood Pressure Position [Right Arm] Supine Supine 02 Sat by Pulse Oximetry 99 98 Oxygen Delivery Method Nasal Cannula Nasal Cannula Oxygen Flow Rate (LPM) 2 2 - Lab Data Lab results reviewed: Yes: I reviewed the patient's lab results. Lab Results 02/10/20 07:55: WBC 8.0, RBC 4.05 L, Hgb 11.6 L, Hct 35.1 L, MCV 86.5, MCH 28.6, MCHC 33.0, RDW 17.5, Plt Count 151, MPV 9.5, Neut % (Auto) 57.7, Lymph % (Auto) 29.3, Ford % (Auto) 8.3, Eos % (Auto) 4.1, Baso % (Auto) 0.7, Neut # (Auto) 4.6, Lymph # (Auto) 2.3, Ford # (Auto) 0.7, Eos # (Auto) 0.3, Baso # (Auto) 0.1 02/10/20 07:55: Sodium 130 L, Potassium 4.2, Chloride 68 L, Carbon Dioxide 60 H*, Anion Gap 6.2, BUN 37 H, Creatinine 2.10 H, Estimated Creat Clear 42, Estimated GFR 31 L, Est GFR ( Amer) 38 L, Glucose 134 H, Calcium 8.7, Total Bilirubin 0.8, AST 38, ALT 13, Alkaline Phosphatase 61, Total Protein 6.6, Albumin 3.6, Globulin 3.0, Albumin/Globulin Ratio 1.2 02/10/20 08:05: Urine Color Yellow, Urine Appearance Clear, Urine pH 8.0, Ur Specific [place] 1.015, Urine Protein Trace, Urine Glucose (UA) Negative, Urine Ketones Negative, Urine Blood Negative, Urine Nitrate Negative, Urine Bilirubin Negative, Urine Urobilinogen 0.2, Ur Leukocyte Esterase Negative, Urine RBC Occasional, Urine WBC 3-5, Ur Squamous Epith Cells Occasional Result diagrams: 02/10/20 07:55 02/10/20 07:55 Orders (Tests/Meds): ED MEDICATIONS Discontinued Medications Generic Name Dose Route Start Last Admin Trade Name Freq PRN Reason Stop Dose Admin Sodium Chloride 1,000 mls @ 999 mls/hr 02/10/20 08:00 02/10/20 07:56 Sod Chlor 0.9% 1000ml Bag IV 02/10/20 09:00 999 mls/hr .Q1H1M JEFFREY Administration ORDERS Category Date Time Status XR chest portable Stat Exams 02/10/20 09:39 Ordered Recheck HPI - General Chief Complaint: Recheck/Abnormal Lab/Rx Stated Complaint: abnormal labs Time Seen by Provider: 02/10/20 08:00 Mode of Arrival: EMS Source of Information: Patient, Relative, EMS, Medical Record Limitations: No Limitations Description of Symptoms (Recalled from ER Triage Doc. by RN): to ed per squad pt sent for eval due to abnormal labs elevated BUN and Creat. report that pt received 1liter of fluid lastnight. pt adenike
--- NOTE | 2020-02-10 09:22 | PC.NURSE ---
SAEED RODRÍGUEZ speaking with cat in care management
--- NOTE | 2020-02-10 09:39 | XR_ITS ---
PROCEDURE: XR CHEST PORTABLE CLINICAL HISTORY: abnormal labs Heart disease, shortness of breath COMPARISON: XR CHEST PORTABLE from 01/26/2020 CT ANGIO CHEST from 01/27/2020 XR CHEST PORTABLE from 01/27/2020 XR CHEST PORTABLE from 01/29/2020 FINDINGS: Prior CABG with bipolar pacemaker present from left subclavian approach. There is mild cardiomegaly. There is increased density right lung base consistent with atelectasis and/or infiltrate with small effusion. There is minimal blunting of the left CP angle suggesting trace effusion. No acute bony abnormalities. IMPRESSION: Right basilar atelectasis or infiltrate with effusion with trace effusion on the left. The right lower lobe consolidation/effusion has improved some since 01/29/2020 Dictated by: Coleman Delgado MD 02/10/2020 12:22 Electronically signed by Coleman Delgado MD in [place] 02/10/2020 12:22
--- NOTE | 2020-02-10 09:51 | PC.NURSE ---
pt up to restroom
--- NOTE | 2020-02-10 10:00 | PC.NURSE ---
pt incontinent of stool excoriation noted to buttocks.
--- NOTE | 2020-02-10 10:01 | US_ITS ---
PROCEDURE: US KIDNEY CLINICAL INDICATION: arlette Acute renal insufficiency COMPARISON: No exams were available for comparison FINDINGS: The kidneys are normal size shape and position. No hydronephrosis or renal mass or cortical thinning. IMPRESSION: Unremarkable bilateral renal ultrasound Dictated by: Coleman Delgado MD 02/10/2020 13:50 Electronically signed by Coleman Delgado MD in [facility] 02/10/2020 13:50
--- NOTE | 2020-02-10 11:26 | P.CONPHA_ITS ---
[facility] Pharmacy VTE Monitoring - Patient Demographics Admission date: 02/10/20 Report Date: 02/10/20 Time: 11:26 Allergies/Adverse Reactions: Patient Allergies No Known Drug Allergies Allergy (Unknown, Verified 01/26/20 13:40) -- Height: 1.8 m Weight: 84.935 kg Patient Problems: Current Active Problems MAXINE (acute kidney injury) (Acute) Obesity (BMI 30.0-34.9) (Acute) S/P coronary artery stent placement (Acute) AICD (automatic cardioverter/defibrillator) present (Chronic) - VTE Risk Labs: VTE Related Lab Results Hgb 11.6 g/dL (14.1-18.0) L 02/10/20 07:55 Hct 35.1 % (42.0-52.0) L 02/10/20 07:55 Plt Count 151 K/mm3 (142-424) 02/10/20 07:55 BUN 37 mg/dl (9-20) H 02/10/20 07:55 Creatinine 2.10 mg/dl (0.66-1.25) H 02/10/20 07:55 Estimated Creat Clear 42 mL/min (50-200) 02/10/20 07:55 - Prophylaxis VTE Prophylaxis Ordered?: Yes Types of VTE Prophylaxis: TEDS Knee High Location of Applied Device: Bilateral Lower Extremeties - VTE Diagnosis Confirmed Treatment or plan recommended: Continue Current Treatment
--- NOTE | 2020-02-10 12:22 | SW/DCPLANNER ---
This patient currently resides at [facility] in [place]. I am awaiting a call back from [place] with Admissions at [facility] regarding status with [facility].
--- NOTE | 2020-02-10 12:59 | HMH.PHAINT ---
MEDICATION RECONCILIATION COMPLETED ON PATIENT USING MAR FROM CUSTODIAL AND EXTERNAL FILL HISTORY FROM PHARMACY. -JODI HICKSD
[2020-02-10 14:49] LABS: Adenovirus F 40/41, stool Not Detected (NotDetected); Astrovirus Not Detected (NotDetected); Campylobacter Not Detected (NotDetected); Cryptosporidium Not Detected (NotDetected); Cyclospora Cayetanesis Not Detected (NotDetected); Entamoeba histolytica Not Detected (NotDetected); Enteroaggregative E coli Not Detected (NotDetected); Enterotoxigenic E coli Not Detected (NotDetected); Giardia lamblia Not Detected (NotDetected); Norovirus Not Detected (NotDetected); Plesimonas Shigalloides, PCR Not Detected (NotDetected); Rotavirus A Not Detected (NotDetected); Salmonella, PCR Not Detected (NotDetected); Sapovirus Not Detected (NotDetected); Shiga-like toxin E coli Not Detected (NotDetected); Shigella Enterovasive E coli Not Detected (NotDetected); Vibrio Cholerae Not Detected (NotDetected); Vibrio, PCR Not Detected (NotDetected); Yersinia Entercolitica, PCR Not Detected (NotDetected)
[2020-02-10 16:33] LABS: POC Glucose,Bedside 204 (70-110)
--- NOTE | 2020-02-10 17:00 | PC.NURSE ---
PT IS RESTING IN BED. NO COMPLAINTS OF DISCOMFORT. PT HAS HAD SEVERAL LOOSE STOOLS THIS SHIFT. DIARRHEA PANEL WAS SENT DOWN TO LAB ( RESULTS PENDING). PT HAS OPEN AREAS NOTED TO THE BUTTOCKS. POLYMEM/TEGADERM DRESSING HAS BEEN CHANGED SEVERAL TIMES B/C OF LOOSE BOWEL MOVEMENTS. HEEL PROTECTORS APPLIED. PT HAS 2 AREAS NOTED TO THE RT FOOT. BRUISING NOTED TO THE ABDOMEN. LUNG SOUNDS CLEAR. BOWEL SOUNDS NORMAL. ALERT AND ORIENTED X4. TURNED AND REPOSITIONED Q2H. WILL CONTINUE TO MONITOR.
[2020-02-10 18:50] LABS: Clostridium Difficile A/B, PCR Detected (NotDetected); Enteropathogenic E coli Detected (NotDetected)
[2020-02-10 20:27] LABS: POC Glucose,Bedside 156 (70-110)
--- NOTE | 2020-02-10 22:25 | PC.NURSE ---
initial assessment, pt heel is boggy with a pressure ulcer present, heels floated
--- NOTE | 2020-02-10 23:59 | PC.NURSE ---
Pt's room air sat at rest = 88%
[2020-02-11 04:00] VITALS: BP 101/47; PULSE 74; RESP 17; TEMP 36.9; O2SAT 94
[2020-02-11 05:00] VITALS: BMI 26.4
--- NOTE | 2020-02-11 05:14 | PC.NURSE ---
shift summary, pt rested well t/o night, no complaints
[2020-02-11 05:58] LABS: POC Glucose,Bedside 138 (70-110)
[2020-02-11 06:27] LABS: Potassium 3.6 mmoL/L (3.5-5.1); Sodium 131 mmol/L (136-145)
[2020-02-11 06:29] LABS: Blood Urea Nitrogen 32 mg/dl (9-20); Creatinine Clearance Estimated 47 mL/min (50-200); Estimated Glomerular Filt Rate 40 ml/min (>60); GFR (African American) 48 ML/MIN (>60)
[2020-02-11 06:30] LABS: Calcium 8.5 mg/dl (8.4-10.2); Glucose 153 mg/dl (74-100); Magnesium 1.8 mg/dl (1.6-2.3)
[2020-02-11 06:53] LABS: Basophils % 0.6 % (0.1-2.0); Eosinophils # 0.4 K/mm3 (0.0-0.4); Eosinophils % 5.9 % (0.1-12.0); Hematocrit 31.8 % (42.0-52.0); Hemoglobin 10.8 g/dL (14.1-18.0); Lymphocytes # 1.9 K/mm3 (0.7-4.5); Lymphocytes % 27.5 % (10-50); Mean Corpuscular HGB Conc 33.8 g/dL (31.8-35.4); Mean Corpuscular Hemoglobin 28.4 pg (27.0-31.2); Mean Corpuscular Volume 84.2 fl (80-94); Mean Platelet Volume 9.4 fl (7.4-10.4); Monocytes # 0.6 K/mm3 (0.1-1.0); Monocytes % 8.4 % (1.7-9.3); Neutrophils % 57.5 % (37.0-80.0); Platelet Count 131 K/mm3 (142-424); Red Blood Count 3.78 M/mm3 (4.60-6.20); Red Cell Distribution Width 17.4 % (11.5-17.5); White Blood Count 6.9 K/mm3 (4.8-10.8)
[2020-02-11 06:54] LABS: Anion Gap 7.6 mEq/L (5-15); Carbon Dioxide 49 mmol/L (22.0-30.0); Chloride 78 mmol/L (98-107)
[2020-02-11 08:00] VITALS: TEMP 36.8; O2SAT 93
--- NOTE | 2020-02-11 09:23 | HMH.ACPN2 ---
Internal Medicine - PN: Subj *Date: 02/11/20 *Time: 09:23 Interval history: Patient was recently discharged from this hospital, transferred to [facility] in [place]. He was subsequently readmitted because of diarrhea. To have an elevated creatinine at 2.0, this is come down to 1.7 this morning. Studies show C differential, he is started on p.o. vancomycin. He is doing well this morning, specific complaints of pain or discomfort. That his baseline mentation. Exam Vital signs and Labs for Last 24 Hours: Temp Pulse Resp BP Pulse Ox 98.3 F 74 17 101/47 L 94 L 02/11/20 08:00 02/11/20 04:00 02/11/20 04:00 02/11/20 04:00 02/11/20 04:00 Laboratory Results - last 24 hr 02/10/20 12:24: Stl Aeromonas (PCR) Not detected, Stl C. cayetanensis PCR Not detected, Stool Rotavirus (PCR) Not detected, Stl Adenov F 40/41 PCR Not detected, Stool Astrovirus (PCR) Not detected, Stool Campylobacter PCR Not detected, Stl C.difficile Tox PCR Detected A, Stool Cryptosporidium PCR Not detected, Stl E.coli Shiga Tox PCR Not detected, Stool E coli O157 PCR Not detected, Stl Enterotoxigenic E PCR Not detected, Stool EPEC (PCR) Detected A, Stool EAEC (PCR) Not detected, Stl E. histolytica PCR Not detected, Stool Giardia Lamblia PCR Not detected, Stool Salmonella PCR Not detected, Stool Sapovirus (PCR) Not detected, Stl P. shigelloides PCR Not detected, Stl Shigella/EIEC PCR Not detected, St Y.enterocolitica PCR Not detected, Stool Vibrio (PCR) Not detected, Stl Vibrio cholerae PCR Not detected, Stl Norovirus GI/GII PCR Not detected 02/10/20 16:26: POC Glucose 204 H 02/10/20 20:19: POC Glucose 156 H 02/11/20 05:26: WBC 6.9, RBC 3.78 L, Hgb 10.8 L, Hct 31.8 L, MCV 84.2, MCH 28.4, MCHC 33.8, RDW 17.4, Plt Count 131 L, MPV 9.4, Neut % (Auto) 57.5, Lymph % (Auto) 27.5, Emmet % (Auto) 8.4, Eos % (Auto) 5.9, Baso % (Auto) 0.6, Neut # (Auto) 4.0, Lymph # (Auto) 1.9, Emmet # (Auto) 0.6, Eos # (Auto) 0.4, Baso # (Auto) 0.0 02/11/20 05:26: Sodium 131 L, Potassium 3.6, Chloride 78 L, Carbon Dioxide 49 H*, Anion Gap 7.6, BUN 32 H, Creatinine 1.70 H, Estimated Creat Clear 47, Estimated GFR 40 L, Est GFR ( Amer) 48 L D, Glucose 153 H, Calcium 8.5, Magnesium 1.8 02/11/20 05:52: POC Glucose 138 H I & O for Last 24 hours: Intake & Output 02/08/20 02/09/20 02/10/20 02/11/20 23:59 23:59 23:59 23:59 Intake Total 931 / 931 972 / 972 Output Total 626 / 628 552 / 552 Balance 305 / 303 420 / 420 Weight 187 lb 4 oz 188 lb 9 oz - Constitutional no acute distress, average body habitus, cooperative - *Routine HEENT Exam Head: Present: normocephalic, atraumatic Eye: Absent: conjunctival icterus ENT: Present: mucous membranes moist - *Routine Respiratory Exam Present: CTA bilaterally. Absent: accessory muscle use, respiratory distress - *Routine Cardiovascular Exam Comments: aicd - *Routine Abdominal Exam Present: soft. Absent: tenderness, distended, rebound, guarding, firm, mass - *Routine Extremities Exam Absent: cyanosis, clubbing, calf tenderness - *Routine Skin Exam Present: intact. Absent: cyanosis - *Routine Neurological Exam Present: alert, oriented X3. Absent: clonus Assessment and Plan (1) Diarrhea Current visit: Yes Status: Acute Category: Medical Code(s): R19.7 - Diarrhea, unspecified (2) C. difficile enteritis Current visit: No Status: Acute Category: Medical Code(s): A04.72 - Enterocolitis due to Clostridium difficile, not specified as recurrent (3) MAXINE (acute kidney injury) Current visit: Yes Status: Acute Category: Medical Code(s): N17.9 - Acute kidney failure, unspecified (4) Obesity (BMI 30.0-34.9) Current visit: Yes Status: Acute Category: Medical Code(s): E66.9 - Obesity, unspecified - Assessment and plan all Dx Assessment and Plan for all problems:: Patient is being hydrated, with p.o. vancomycin for the C. difficile. We will hope to see some meaningful progress all
[2020-02-11 11:42] LABS: POC Glucose,Bedside 190 (70-110)
--- NOTE | 2020-02-11 12:59 | SW/DCPLANNER ---
Addendum entered by Pina Billings 02/12/20 11:43: Jaron with [facility] has confirmed patient information has been received and services will begin Saturday for this patient. Addendum entered by Pina Billings 02/12/20 10:17: Patient information has been faxed to [facility]. I will follow up with Cem with [facility] once patient information is reviewed. Patient will discharge home today and is requesting ambulance transportation. Original Note: Patient was currently residing at [facility] prior to [facility] admission. [place] from [facility] did speak with patients and the decision was made to NOT do bedhold for this patient. I did have a lengthy discussion with patient and his this afternoon. Both patient and have stated they prefer to discharge home rather than [facility]. Patient and have stated they want to have home health services thru [facility]. stated that patient has all equipment necessary at home such as: walker, BSC, wheel chair, and home O2. I will continue to follow up with patient/ during admission. I will also set up home health services once stable for discharge.
--- NOTE | 2020-02-11 14:57 | HMH.CONS ---
*Admission Date: 02/10/20 *Reason for consult:: Urinary retention *History of present illness: Patient is a 74-year-old white male admitted to the emergency room yesterday with elevation in his creatinine. His creatinine was 2.6 and is usually within normal limits. Is also having some difficulty of voiding and a Ozuna catheter was placed in the emergency room with a 400 cc residual. Patient denies any recent cold or sinus medication. Ultrasound of the kidney was performed which was unremarkable. His urinalysis showed only a few white cells. His creatinine has improved and is 1.7 today. White count is normal. He is voiding better today. He is already on tamsulosin per his primary care physician. He denies having seen a urologist in the past. Patient has been diagnosed with C. difficile while here. [facility] History Medical History: Reports:: Chronic Obstructive Pulmonary Disease (COPD), Coronary Artery Disease, Diabetes Mellitus Type 2, Hyperlipidemia, Hypertension, Internal Pacemaker, Lung Disease, Myocardial Infarction Denies:: Cancer, Diabetes Mellitus Type 1, MRSA, Seizures *Have you ever received a pneumonia vaccine?: Yes *Have you received a flu vaccine this season?: Yes Other Medical History: Reports: Anemia, Arthritis, Cataracts Laterality Cases: Left: Other Other Surgeries: Yes: Angioplasty, CABG (4 vessel), Cardiac Catheterization, Cardiac Surgery, Cholecystectomy, Coronary Stent, Pacemaker, Other Amputation: Yes Fractures: No - *Social History Smoking Status: Former smoker Tobacco Type: cigars #Yrs smoked (if former smoker): 40 Alcohol Intake: never Alcohol Intake Frequency:: 3 or more drinks per day Substance Use Type: denies use *Occupational Status:: disabled Housing: apartment Household Members: spouse *Travel in the last 8 weeks: None Family Hx:: Cancer, Diabetes, Hyperlipidemia, Hypertension Review of Systems - Review of Systems Review of systems:: pertinent systems reviewed and negative unless documented below - *Neurologic Denies seizure-like activity Meds Home Medications Medication Instructions Recorded Confirmed Type carbidopa 10 mg-levodopa 100 mg 1 tab PO HS #90 tab 08/19/19 02/10/20 Rx disintegrating tablet pantoprazole 40 mg tablet,delayed 40 mg PO BID 10/16/19 02/10/20 History release Cyanocobalamin (Vitamin B-12) 1,000 mcg PO DAILY 11/10/19 02/10/20 History [Vitamin B-12 1000mcg Tablet] Tamsulosin HCl 0.4 mg PO DAILY 11/10/19 02/10/20 History atorvastatin 40 mg tablet 40 mg PO DAILY #90 tab 01/08/20 02/10/20 Rx Sucralfate [Sucralfate 1gm 1 g PO QID 01/27/20 02/10/20 History Tab] Albuterol Sulfate [Albuterol 2.5 mg IH QID 02/10/20 02/10/20 History 0.083% 2.5mg/3mL neb] Clopidogrel Bisulfate [Clopidogrel 75 mg PO DAILY 02/10/20 02/10/20 History 75mg Tab] Fenofibrate,Micronized 134 mg PO DAILY 02/10/20 02/10/20 History [Fenofibrate] Fluticasone Propionate [Flonase 1 spray NS DAILYP PRN 02/10/20 02/10/20 History Allergy Relief NS] Furosemide [Lasix 20mg tab] 20 mg PO DAILY 02/10/20 02/10/20 History Gabapentin [Neurontin 600mg 600 mg PO TID 02/10/20 02/10/20 History tablet] Insulin Glargine,Hum.rec.anlog 30 units SQ DAILY 02/10/20 02/10/20 History [Lantus Solostar 100 Units/mL 3mL flexpen] Multivitamin/Iron/Folic Acid 1 each PO DAILY 02/10/20 02/10/20 History [Multi-Day Plus Iron Tablet] Potassium Chloride [Klor-con 20 40 meq PO DAILY 02/10/20 02/10/20 History mEq tablet] carvediloL [Carvedilol 3.125mg Tab] 3.125 mg PO BID 02/10/20 02/10/20 History levoFLOXacin [Levaquin 500mg 500 mg PO DAILY 02/10/20 02/10/20 History tab] lisinopriL [Zestril 5mg 5 mg PO DAILY 02/10/20 02/10/20 History Tablet] Allergies Allergy/AdvReac Type Severity Reaction Status Date / Time No Known Drug Allergies Allergy Unknown -- Verified 01/26/20 13:40 Exam Vital signs and Labs for Last 24 Hours: Temp Pulse Re
[2020-02-11 15:31] VITALS: BP 123/70; PULSE 70; RESP 16; TEMP 36.6; O2SAT 99
[2020-02-11 17:34] LABS: POC Glucose,Bedside 199 (70-110)
--- NOTE | 2020-02-11 19:50 | PC.NURSE ---
PT IS RESTING IN BED. ALERT AND ORIENTED X4. NO COMPLAINTS OF DISCOMFORT. TURNED AND REPOSITIONED FREQUENTLY. PT HAS OPEN AREA NOTED TO THE BUTTOCKS/COCCYX WITH POLYMEM AND TEGADERM DRESSING C/D/I. HEELS REMAIN FLOATED. 2 PRESSURE AREAS NOTED TO RT FOOT. BRUISING NOTED TO ABDOMEN. VOIDED SEVERAL TIMES THIS SHIFT. VSS. WILL CONTINUE TO MONITOR.
[2020-02-11 19:55] VITALS: O2SAT 100
--- NOTE | 2020-02-11 19:55 | PC.NURSE ---
Pt's room air sat at rest = 88%.
[2020-02-11 20:00] VITALS: BP 142/66; PULSE 81; RESP 18; TEMP 37.7; O2SAT 98
--- NOTE | 2020-02-11 20:21 | HMH.HP ---
*Admission Date: 02/10/20 *Chief complaint: elevated creatinine and cdiff *History of present illness: Patient is a 74-year-old white male admitted to the emergency room yesterday with elevation in his creatinine. His creatinine was 2.6 and is usually within normal limits. Is also having some difficulty of voiding and a Ozuna catheter was placed in the emergency room with a 400 cc residual. Patient denies any recent cold or sinus medication. Ultrasound of the kidney was performed which was unremarkable. His urinalysis showed only a few white cells. His creatinine has improved and is 1.7 today. White count is normal. He is voiding better today. He is already on tamsulosin per his primary care physician. He denies having seen a urologist in the past. Patient has been diagnosed with C. difficile while here. 02/10/20 12:24: Stl Aeromonas (PCR) Not detected, Stl C. cayetanensis PCR Not detected, Stool Rotavirus (PCR) Not detected, Stl Adenov F 40/41 PCR Not detected, Stool Astrovirus (PCR) Not detected, Stool Campylobacter PCR Not detected, Stl C.difficile Tox PCR Detected A, Stool Cryptosporidium PCR Not detected, Stl E.coli Shiga Tox PCR Not detected, Stool E coli O157 PCR Not detected, Stl Enterotoxigenic E PCR Not detected, Stool EPEC (PCR) Detected A, Stool EAEC (PCR) Not detected, Stl E. histolytica PCR Not detected, Stool Giardia Lamblia PCR Not detected, Stool Salmonella PCR Not detected, Stool Sapovirus (PCR) Not detected, Stl P. shigelloides PCR Not detected, Stl Shigella/EIEC PCR Not detected, St Y.enterocolitica PCR Not detected, Stool Vibrio (PCR) Not detected, Stl Vibrio cholerae PCR Not detected, Stl Norovirus GI/GII PCR Not detected Patient was placed on p.o. vancomycin and seen in consultation by urology. He was an inpatient at [facility] last week, was subsequently transferred to [facility] in [place]. PROCEDURE: US KIDNEY CLINICAL INDICATION: arlette Acute renal insufficiency COMPARISON: No exams were available for comparison FINDINGS: The kidneys are normal size shape and position. No hydronephrosis or renal mass or cortical thinning. IMPRESSION: Unremarkable bilateral renal ultrasound [facility] History Medical History: Reports:: Chronic Obstructive Pulmonary Disease (COPD), Coronary Artery Disease, Diabetes Mellitus Type 2, Hyperlipidemia, Hypertension, Internal Pacemaker, Lung Disease, Myocardial Infarction Denies:: Cancer, Diabetes Mellitus Type 1, MRSA, Seizures *Have you ever received a pneumonia vaccine?: Yes *Have you received a flu vaccine this season?: Yes Other Medical History: Reports: Anemia, Arthritis, Cataracts Laterality Cases: Left: Other Other Surgeries: Yes: Angioplasty, CABG (4 vessel), Cardiac Catheterization, Cardiac Surgery, Cholecystectomy, Coronary Stent, Pacemaker, Other Amputation: Yes Fractures: No - *Social History Smoking Status: Former smoker Tobacco Type: cigars #Yrs smoked (if former smoker): 40 Alcohol Intake: never Alcohol Intake Frequency:: 3 or more drinks per day Substance Use Type: denies use *Occupational Status:: disabled Housing: apartment Household Members: spouse *Travel in the last 8 weeks: None Family Hx:: Cancer, Diabetes, Hyperlipidemia, Hypertension Review of Systems - Constitutional Reports lack of energy - *Cardiovascular Denies chest pain - *Respiratory Denies chest congestion - *Gastrointestinal Denies abdominal pain - *Genitourinary Reports difficulty urinating - *Musculoskeletal Reports muscle weakness - *Neurologic Reports weakness, Denies seizure-like activity - Psychiatric Reports lack of enjoyment Meds Home Medications Medication Instructions Recorded Confirmed Type carbidopa 10 mg-levodopa 100 mg 1 tab PO HS #90 tab 08/19/19 02/10/20 Rx disintegrating tablet pantoprazole 40 mg tablet,delayed 40 mg PO BID 10/16/19 02/10/20 History release Cyanocobalamin (Vitamin B-12) 1,000 mcg PO DAILY
[2020-02-11 21:40] LABS: POC Glucose,Bedside 232 (70-110)
[2020-02-12 04:00] VITALS: BP 126/66; PULSE 62; RESP 14; TEMP 36.8; O2SAT 96
--- NOTE | 2020-02-12 04:42 | PC.NURSE ---
A&OX4. PT VERY PLEASANT T/O SHIFT. PT TOLERATING 2LNC WELL WITH O2 SAT IN THE MID 90S. PT HAS REMAINED IN BED T/O SHIFT, BEING TURNED BY STAFF. PT TOLERATED BATH WELL. PT HAS HAD NO C/O PAIN OR SOA THIS SHIFT. PT ONLY C/O NA X1, TREATED WITH ZOFRAN PER OCT. ON REASSESSMENT PT RESTING IN BED WITH EYES CLOSED. PT USING URINAL TO VOID, ADEQUATE AMOUNT OF U/O THIS SHIFT. URINE NOTED LIGHT YELLOW IN COLOR. STAGE 2 PRESSURE SORE PRESENT TO COCCYX. DRESSING CDI, PT TURNED. HEELS REMAIN FLOATED T/O SHIFT. PT RESTING WELL IN BED T/O SHIFT. NO OTHER C/O THUS FAR, VSS WILL CONTINUE TO MONITOR.
[2020-02-12 05:00] VITALS: BMI 25.9
[2020-02-12 05:19] LABS: POC Glucose,Bedside 146 (70-110)
[2020-02-12 07:12] LABS: Chloride 86 mmol/L (98-107); Sodium 134 mmol/L (136-145)
[2020-02-12 07:13] LABS: Potassium 3.9 mmoL/L (3.5-5.1)
[2020-02-12 07:15] LABS: Blood Urea Nitrogen 23 mg/dl (9-20); Creatinine Clearance Estimated 78 mL/min (50-200); Estimated Glomerular Filt Rate 73 ml/min (>60); GFR (African American) 89 ML/MIN (>60)
[2020-02-12 07:16] LABS: Calcium 8.9 mg/dl (8.4-10.2); Glucose 146 mg/dl (74-100)
[2020-02-12 07:23] LABS: Anion Gap 9.9 mEq/L (5-15); Carbon Dioxide 42 mmol/L (22.0-30.0)
[2020-02-12 08:00] VITALS: BP 129/73; PULSE 73; RESP 18; TEMP 37.2; O2SAT 97
--- NOTE | 2020-02-12 08:41 | HMH.DCSUM ---
General - General Admission date:: 02/10/20 Discharge date: 02/12/20 HPI HPI: Patient is a 74-year-old white male admitted to the emergency room yesterday with elevation in his creatinine. His creatinine was 2.6 and is usually within normal limits. Is also having some difficulty of voiding and a Ozuna catheter was placed in the emergency room with a 400 cc residual. Patient denies any recent cold or sinus medication. Ultrasound of the kidney was performed which was unremarkable. His urinalysis showed only a few white cells. His creatinine has improved and is 1.7 today. White count is normal. He is voiding better today. He is already on tamsulosin per his primary care physician. He denies having seen a urologist in the past. Patient has been diagnosed with C. difficile while here. 02/10/20 12:24: Stl Aeromonas (PCR) Not detected, Stl C. cayetanensis PCR Not detected, Stool Rotavirus (PCR) Not detected, Stl Adenov F 40/41 PCR Not detected, Stool Astrovirus (PCR) Not detected, Stool Campylobacter PCR Not detected, Stl C.difficile Tox PCR Detected A, Stool Cryptosporidium PCR Not detected, Stl E.coli Shiga Tox PCR Not detected, Stool E coli O157 PCR Not detected, Stl Enterotoxigenic E PCR Not detected, Stool EPEC (PCR) Detected A, Stool EAEC (PCR) Not detected, Stl E. histolytica PCR Not detected, Stool Giardia Lamblia PCR Not detected, Stool Salmonella PCR Not detected, Stool Sapovirus (PCR) Not detected, Stl P. shigelloides PCR Not detected, Stl Shigella/EIEC PCR Not detected, St Y.enterocolitica PCR Not detected, Stool Vibrio (PCR) Not detected, Stl Vibrio cholerae PCR Not detected, Stl Norovirus GI/GII PCR Not detected Patient was placed on p.o. vancomycin and seen in consultation by urology. He was an inpatient at [facility] last week, was subsequently transferred to [facility] in [place]. PROCEDURE: US KIDNEY CLINICAL INDICATION: arlette Acute renal insufficiency COMPARISON: No exams were available for comparison FINDINGS: The kidneys are normal size shape and position. No hydronephrosis or renal mass or cortical thinning. IMPRESSION: Unremarkable bilateral renal ultrasound Hospital Course Hospital Course: Patient is a 74-year-old white male who was admitted from [facility] in [place] for abnormal labs.Specifically he had had abnormal creatinine, it had risen to 2.6 from a previous normal baseline. He had been on Levaquin at the sn[facility], perhaps this is the etiology of the rising creatinine. He was seen in consultation by urology, ultrasound was performed. It was normal. 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 He was treated with oral vancomycin. Patient and family have elected to send him home. He is happy with that decision and is anxious to leave. He feels good this morning and has no new complaints. His affect is much brighter. Objective Vital signs: Temp Pulse Resp BP Pulse Ox 98.9 F 73 18 129/73 97 02/12/20 08:00 02/12/20 08:00 02/12/20 08:00 02/12/20 08:00 02/12/20 08:00 no acute distress - *Routine HEENT Exam Eye: Absent: scleral injection ENT: Present: mucous membranes moist - *Routine Neck Exam Present: supple. Absent: JVD, swelling - Routine Chest/Breast/Axilla Exam Comments: AICD in the left chest wall. - *Routine Respiratory Exam Present: CTA bilaterally. Absent: accessory muscle use, rhonchi, stridor, wheezes, crackles - *Routine Cardiovascular Exam Present: RRR, Normal S1, Normal S2. Absent: irregular rhythm - *Routine Abdominal Exam Present: soft, surgical scars. Absent: tenderness, distended, rebound, mass, wound, drain - *Routine Exam Patient deferred: penile exam (Unremarkable) - *Routine Extremities Exam Absent: cyanosis, clubbing, edema, calf tenderness, tenderness - *Routine Skin Exam Present: intact. Absent: cyanosis, erythema, jaundice - *Routine Neurological Exam Pres
--- NOTE | 2020-02-12 11:38 | HMH.PTEV ---
Physical Therapy Evaluation Rehab PT IP Evaluation Start: 02/12/20 09:24 Freq: ONCE Status: Active Protocol: Document 02/12/20 11:34 JENNIFER (Rec: 02/12/20 11:38 [id number]) Subjective/History History History 74 yowm adm to [facility] with general weakness found to have C-diff. PMH: COPD, CAD, DM-II , HL, HTN, CA, pacemaker. Baseline he lives with spouse and uses w/c for primary mobility. Subjective Subjective Pt with no c/o this am. Rehab PT IP Eval Objective Appearance Patient Behavior Appropriate Patient Orientation Person,Place Difficulty following instructions none Speech Pattern Clear Ambulation Patient Able to Ambulate No Balance Ability to Arise Able, uses arms to help Sitting Balance Steady, safe Standing Balance Unsteady Dynamic Sitting Balance Ability Fair Dynamic Standing Balance Ability Poor Transfers Bed Transfer Ability Minimal x 1 (25% assist) Chair Transfer Ability Minimal x 1 (25% assist) Sit to Stand Bed Transfer Ability Minimal x 1 (25% assist) Sit to Stand Chair Transfer Ability Minimal x 1 (25% assist) ROM All Extremities PT ROM Status WFL MMT All Extremities PT MMT WFL Rehab PT IP prob,goals,plan Problems Date of Evaluation: 02/12/20 Discharge Plan PT Discharge Plan Pt is at baseline for all transfers at this time and family wishes to return him to home with them. He is appropriate to return home with assistance, home health therapy recommended. G -code Required No Eval Complexity Eval Charge Codes 82971 - Moderate Complexity PHYSICIAN CERTIFICATION: I certify the specified therapy services for Jagjit Servin are required, authorized, and reviewed every 30 days.
[2020-02-12 11:48] LABS: POC Glucose,Bedside 205 (70-110)
--- NOTE | 2020-02-12 12:14 | HMH.PHAINT ---
DISCHARGE COUNSELING COMPLETED ON PATIENT. NEW PRESCRIPTION FOR VANCOMYCIN 125MG PO QID FOR 10 DAYS. THIS WAS SENT TO CLINIC PHARMACY. PATIENT IS TO CONTINUE ALL OTHER HOME MEDICATIONS EXCEPT LEVAQUIN. PATIENT VERBALIZED UNDERSTANDING AND HAD NO QUESTIONS AT THIS TIME. -HEBER PIRES, JODID
== END 2020-02-12 12:28 | disposition home health service (06) ==
LOC: ER 09:57 → 2ND 11:01 → ER 11:06
PROVIDERS: Admitting Provider Emergency Medicine; Emergency Provider Emergency Medicine; PCP Emergency Medicine; Visit Provider Emergency Medicine
DX: R33.8 Other retention of urine (principal); A04.71 Enterocolitis due to Clostridium difficile, recurrent; J44.9 Chronic obstructive pulmonary disease, unspecified; I10 Essential (primary) hypertension; I25.10 Atherosclerotic heart disease of native coronary artery without angina pectoris; N17.9 Acute kidney failure, unspecified; Z79.4 Long term (current) use of insulin; E11.9 Type 2 diabetes mellitus without complications; Z95.810 Presence of automatic (implantable) cardiac defibrillator; I25.2 Old myocardial infarction; Z95.5 Presence of coronary angioplasty implant and graft; Z87.891 Personal history of nicotine dependence; Z79.02 Long term (current) use of antithrombotics/antiplatelets; Z95.1 Presence of aortocoronary bypass graft; Z79.899 Other long term (current) drug therapy
CPT/HCPCS: 36415; 71045; 76770; 80048; 80053; 81001; 82962; 83735; 85025; 87507; 93005; 94761; 96365; 97162; 99285; G0378; J2405; J3370

== ENCOUNTER 2020-02-16 15:24 | Emergency (ER) | payer MEDICARE, MEDICAID, SELFPAY ==
--- NOTE | 2020-02-16 15:24 | ECG_ITS ---
APPROVED REPORT Exam: Resting ECG HR:75 bpm ECG Measurements Heart Rate 75 AXES MT 152 P 86 QRSd 118 QRS 21 QT 432 T -71 QTc 482 <Conclusion> Normal sinus rhythm Possible Left atrial enlargement Nonspecific intraventricular conduction delay Nonspecific ST and T wave abnormality Prolonged QT Abnormal ECG Electronically signed by : Hermes Randolph, 02/19/2020 17:14:46
[2020-02-16 15:26] VITALS: BP 117/59; PULSE 75; RESP 18; TEMP 37.5; O2SAT 99; BMI 39.0
[2020-02-16 15:27] VITALS: BMI 39.0
--- NOTE | 2020-02-16 15:27 | HMH.EDGENADL ---
ED Disposition Clinical Impression: Chest pain Qualifiers: Chest pain type: unspecified Qualified Code(s): R07.9 - Chest pain, unspecified Left shoulder pain Qualifiers: Chronicity: acute Qualified Code(s): M25.512 - Pain in left shoulder Disposition: Home, Self-Care Condition on Discharge: Good Instructions: DI for Chest Pain Additional Instructions: Additional instructions for CHEST PAIN: See Dr. Rader in the office. Call tomorrow to make appointment. Return immediately if worsening chest pain, vomiting, shortness of breath, fever, coughing of blood. Referrals: Nitesh Nugent MD [Primary Care Provider] - - Critical Care Critical Care Time: No Attestation: On , the high probability of a clinically significant, sudden or life threatening deterioration of the following system(s) required my full and direct attention, intervention and personal management. The time I documented below is in addition to time spent performing reported procedures but includes the following listed in this critical care notation. Medical Decision Making - Medical Records Medical records reviewed: Yes: I reviewed the patient's medical records. - Alexandro Inquiry Pt receiving controlled substance: No Vital Signs: 02/16/20 15:26 02/16/20 17:53 02/16/20 18:08 Temperature 99.5 F Temperature Source Oral Pulse Rate [Right Radial] 75 75 78 Respiratory Rate 18 18 Blood Pressure [Right Arm] 117/59 L 125/59 L 121/57 L Blood Pressure Mean [Right Arm] 78 81 78 Blood Pressure Source [Right Arm] Automatic Cuff Automatic Cuff Automatic Cuff Blood Pressure Position [Right Arm] Sitting Sitting Sitting 02 Sat by Pulse Oximetry 99 99 100 Oxygen Delivery Method Nasal Cannula Nasal Cannula Oxygen Flow Rate (LPM) 2 2 02/16/20 18:45 Temperature Temperature Source Pulse Rate [Right Radial] 78 Respiratory Rate 19 Blood Pressure [Right Arm] 120/83 Blood Pressure Mean [Right Arm] 95 Blood Pressure Source [Right Arm] Automatic Cuff Blood Pressure Position [Right Arm] Sitting 02 Sat by Pulse Oximetry 100 Oxygen Delivery Method Nasal Cannula Oxygen Flow Rate (LPM) 2 - Lab Data Lab results reviewed: Yes: I reviewed the patient's lab results. Lab Results 02/16/20 18:23: Sodium 140, Potassium 3.9, Chloride 94 L, Carbon Dioxide 38 H, Anion Gap 11.9, BUN 21 H, Creatinine 0.70, Estimated Creat Clear 118, Estimated GFR 111, Est GFR ( Amer) 134, Glucose 88, Calcium 9.3, Troponin I 0.03 02/16/20 18:26: WBC 9.7, RBC 4.53 L, Hgb 12.8 L, Hct 38.8 L, MCV 85.7, MCH 28.4, MCHC 33.1, RDW 17.6 H, Plt Count 136 L, MPV 9.3, Neut % (Auto) 66.4, Lymph % (Auto) 20.0, Ida % (Auto) 5.7, Eos % (Auto) 7.3, Baso % (Auto) 0.5, Neut # (Auto) 6.4, Lymph # (Auto) 1.9, Ida # (Auto) 0.6, Eos # (Auto) 0.7 H, Baso # (Auto) 0.1 Result diagrams: 02/16/20 18:26 02/16/20 18:23 Orders (Tests/Meds): ORDERS Category Date Time Status Shoulder XR left minimum 2 views [XR shoulder LT min 2V Exams 02/16/20 16:01 Taken ] Stat Troponin I Q3H Lab 02/16/20 21:30 Ordered Troponin I Routine Lab 02/16/20 19:22 Ordered - Radiology Data #1 Image(s): Chest Image Reviewed: Yes I have reviewed radiologist's interpretation PROCEDURE: XR CHEST PORTABLE CLINICAL HISTORY: L shoulder pain Pain COMPARISON: XR CHEST PORTABLE from 01/27/2020 CT ANGIO CHEST from 01/27/2020 XR CHEST PORTABLE from 01/29/2020 XR CHEST PORTABLE from 02/10/2020 FINDINGS: Prior CABG with bipolar pacemaker present. Borderline cardiomegaly without failure. Increased density is present in the right lower lobe consistent with atelectasis or infiltrate slightly improved with small bilateral effusions. No acute bony abnormalities. IMPRESSION: Persistent but improved right basilar infiltrate with small bilateral effusions Dictated by: Coleman Delgado MD 02/16/2020 17:12 Electronically signed by Coleman Delgado MD in [place] 02/16/2020 17:12 #2 Image
--- NOTE | 2020-02-16 16:00 | PC.NURSE ---
contacted pre-op to ask nurse to come down to look for an IV with ultrasound, multiple attempts per myself and surinder,pm
--- NOTE | 2020-02-16 16:01 | XR_ITS ---
PROCEDURE: XR SHOULDER LT MIN 2V CLINICAL INDICATION: pain COMPARISON: No exams were available for comparison FINDINGS: There are mild osteoarthritic changes of the acromioclavicular joint with mild subacromial stenosis. Cardiac pacemaker device is present from left subclavian approach. The glenohumeral joint has an unremarkable appearance. IMPRESSION: Mild acromioclavicular arthropathy with mild subacromial stenosis Dictated by: Coleman Delgado MD 02/16/2020 20:56 Electronically signed by Coleman Delgado MD in [place] 02/16/2020 20:56
--- NOTE | 2020-02-16 16:45 | PC.NURSE ---
contacted lab to draw blood on pt, spoke with camron
--- NOTE | 2020-02-16 16:46 | PC.NURSE ---
SAEED RODRÍGUEZ speaking with salima landrum about pt
--- NOTE | 2020-02-16 17:25 | PC.NURSE ---
lab unable to get blood on pt, contacted general warehouse associate to see if she can attempt blood draw. ER MD is aware of difficulty obtaining blood.
--- NOTE | 2020-02-16 17:52 | PC.NURSE ---
v/s delayed due to attempting IV access and blood draw.
[2020-02-16 17:53] VITALS: BP 125/59; PULSE 75; O2SAT 99
--- NOTE | 2020-02-16 18:06 | PC.NURSE ---
green house manager at bs to attempt to obtain blood on pt.
[2020-02-16 18:08] VITALS: BP 121/57; PULSE 78; RESP 18; O2SAT 100
[2020-02-16 18:45] VITALS: BP 120/83; PULSE 78; RESP 19; O2SAT 100
[2020-02-16 18:48] LABS: Chloride 94 mmol/L (98-107)
[2020-02-16 18:49] LABS: Potassium 3.9 mmoL/L (3.5-5.1); Sodium 140 mmol/L (136-145)
[2020-02-16 18:52] LABS: Blood Urea Nitrogen 21 mg/dl (9-20); Calcium 9.3 mg/dl (8.4-10.2); Creatinine Clearance Estimated 118 mL/min (50-200); Estimated Glomerular Filt Rate 111 ml/min (>60); GFR (African American) 134 ML/MIN (>60); Glucose 88 mg/dl (74-100)
[2020-02-16 18:56] LABS: Basophils # 0.1 K/mm3 (0-0.2); Basophils % 0.5 % (0.1-2.0); Eosinophils # 0.7 K/mm3 (0.0-0.4); Eosinophils % 7.3 % (0.1-12.0); Hematocrit 38.8 % (42.0-52.0); Hemoglobin 12.8 g/dL (14.1-18.0); Lymphocytes # 1.9 K/mm3 (0.7-4.5); Mean Corpuscular HGB Conc 33.1 g/dL (31.8-35.4); Mean Corpuscular Hemoglobin 28.4 pg (27.0-31.2); Mean Corpuscular Volume 85.7 fl (80-94); Mean Platelet Volume 9.3 fl (7.4-10.4); Monocytes # 0.6 K/mm3 (0.1-1.0); Monocytes % 5.7 % (1.7-9.3); Neutrophils # 6.4 K/mm3 (1.8-7.8); Neutrophils % 66.4 % (37.0-80.0); Platelet Count 136 K/mm3 (142-424); Red Blood Count 4.53 M/mm3 (4.60-6.20); Red Cell Distribution Width 17.6 % (11.5-17.5); White Blood Count 9.7 K/mm3 (4.8-10.8)
[2020-02-16 18:59] LABS: Anion Gap 11.9 mEq/L (5-15); Carbon Dioxide 38 mmol/L (22.0-30.0)
[2020-02-16 19:04] LABS: Troponin I 0.03 ng/ml (0.00-0.034)
--- NOTE | 2020-02-16 19:09 | PC.NURSE ---
shift change report given to clovis lópez and oli campos rn
[2020-02-16 22:39] LABS: Troponin I 0.03 ng/ml (0.00-0.034)
[2020-02-16 23:02] VITALS: BP 126/80; PULSE 76; RESP 16; TEMP 37.5; O2SAT 99
== END 2020-02-16 23:04 | disposition home or self-care (01) ==
PROVIDERS: Emergency Provider Emergency Medicine; PCP Emergency Medicine
DX: R07.89 Other chest pain (principal); M25.512 Pain in left shoulder; Z95.1 Presence of aortocoronary bypass graft; A04.72 Enterocolitis due to Clostridium difficile, not specified as recurrent; Z95.0 Presence of cardiac pacemaker; I25.2 Old myocardial infarction; E66.01 Morbid (severe) obesity due to excess calories; Z68.39 Body mass index [BMI] 39.0-39.9, adult; J44.9 Chronic obstructive pulmonary disease, unspecified; I25.10 Atherosclerotic heart disease of native coronary artery without angina pectoris; E11.9 Type 2 diabetes mellitus without complications; I10 Essential (primary) hypertension; E78.5 Hyperlipidemia, unspecified; Z87.891 Personal history of nicotine dependence; Z90.49 Acquired absence of other specified parts of digestive tract; Z79.899 Other long term (current) drug therapy
CPT/HCPCS: 36415; 71045; 73030; 80048; 84484; 85025; 93005; 99284

== ENCOUNTER → 2020-03-09 15:03 | Outpatient (CLI) | payer MEDICARE, MEDICAID, SELFPAY ==
[2020-03-10 15:13] LABS: Occult Blood,Stool Positive (Negative)
== END ==
PROVIDERS: Visit Provider Nurse Practitioner Family
DX: R19.7 Diarrhea, unspecified (principal); K92.1 Melena
CPT/HCPCS: 82272; G0328

== ENCOUNTER → 2020-03-14 12:52 | Outpatient (CLI) | payer MEDICARE, MEDICAID, SELFPAY ==
[2020-03-14 12:53] LABS: Adenovirus F 40/41, stool Not Detected (NotDetected); Astrovirus Not Detected (NotDetected); Campylobacter Not Detected (NotDetected); Cryptosporidium Not Detected (NotDetected); Cyclospora Cayetanesis Not Detected (NotDetected); Entamoeba histolytica Not Detected (NotDetected); Enteroaggregative E coli Not Detected (NotDetected); Enteropathogenic E coli Not Detected (NotDetected); Enterotoxigenic E coli Not Detected (NotDetected); Giardia lamblia Not Detected (NotDetected); Norovirus Not Detected (NotDetected); Plesimonas Shigalloides, PCR Not Detected (NotDetected); Rotavirus A Not Detected (NotDetected); Salmonella, PCR Not Detected (NotDetected); Sapovirus Not Detected (NotDetected); Shiga-like toxin E coli Not Detected (NotDetected); Shigella Enterovasive E coli Not Detected (NotDetected); Vibrio Cholerae Not Detected (NotDetected); Vibrio, PCR Not Detected (NotDetected); Yersinia Entercolitica, PCR Not Detected (NotDetected)
[2020-03-14 21:28] LABS: Clostridium Difficile A/B, PCR Detected (NotDetected)
== END ==
PROVIDERS: Visit Provider Nurse Practitioner Family
DX: A04.72 Enterocolitis due to Clostridium difficile, not specified as recurrent (principal)
CPT/HCPCS: 87506

== ENCOUNTER 2020-03-27 06:47 | Observation (INO) | payer MEDICARE, MEDICAID, SELFPAY ==
[2020-03-27] VITALS (15 sets, daily range): BP systolic 133–175; BP diastolic 62–87; PULSE 70–83; RESP 12–20; TEMP 34.1–36.8; O2SAT 92–99; BMI 29.8; BMI 27.8
[2020-03-27 07:28] LABS: Basophils # 0.1 K/mm3 (0-0.2); Basophils % 1.3 % (0.1-2.0); Eosinophils # 0.8 K/mm3 (0.0-0.4); Eosinophils % 10.6 % (0.1-12.0); Hematocrit 35.8 % (42.0-52.0); Hemoglobin 11.4 g/dL (14.1-18.0); Lymphocytes # 2.2 K/mm3 (0.7-4.5); Lymphocytes % 27.7 % (10-50); Mean Corpuscular HGB Conc 31.9 g/dL (31.8-35.4); Mean Corpuscular Hemoglobin 28.8 pg (27.0-31.2); Mean Corpuscular Volume 90.3 fl (80-94); Mean Platelet Volume 8.5 fl (7.4-10.4); Monocytes # 0.6 K/mm3 (0.1-1.0); Neutrophils # 4.2 K/mm3 (1.8-7.8); Neutrophils % 53.5 % (37.0-80.0); Platelet Count 194 K/mm3 (142-424); Red Blood Count 3.96 M/mm3 (4.60-6.20); White Blood Count 7.8 K/mm3 (4.8-10.8)
[2020-03-27 07:29] LABS: Chloride 87 mmol/L (98-107); Sodium 139 mmol/L (136-145)
[2020-03-27 07:30] LABS: Potassium 3.1 mmoL/L (3.5-5.1)
[2020-03-27 07:32] LABS: POC Glucose,Bedside 156 (70-110)
[2020-03-27 07:32] LABS: Alanine Aminotransferase 11 U/L (12-78); Albumin Level 3.5 g/dl (3.5-5.0); Albumin/Globulin Ratio 1.2 (1.1-1.8); Alkaline Phosphatase 83 U/L (38-126); Aspartate Amino Transferase 39 U/L (17-59); Bilirubin,Total 0.7 mg/dl (0.2-1.3); Blood Urea Nitrogen 13 mg/dl (9-20); Creatinine Clearance Estimated 93 mL/min (50-200); Estimated Glomerular Filt Rate 163 ml/min (>60); GFR (African American) 197 ML/MIN (>60); Total Protein,Serum 6.5 g/dl (6.3-8.2)
[2020-03-27 07:33] LABS: Calcium 8.7 mg/dl (8.4-10.2); Glucose 188 mg/dl (74-100)
--- NOTE | 2020-03-27 07:38 | PC.NURSE ---
pennie marshall applied at this time
[2020-03-27 07:47] LABS: Anion Gap 7.1 mEq/L (5-15); Carbon Dioxide 48 mmol/L (22.0-30.0)
[2020-03-27 07:53] LABS: Microscopic, Urine URINE MICROSCOPIC (MICROSCOPIC)
[2020-03-27 07:55] LABS: Appearance,Urine CLOUDY (Clear); Bilirubin,Urine Negative (Negative); Blood, Urine Negative (Negative); Color,Urine YELLOW (Yellow); Glucose,Urine (UA) TRACE (Negative); Ketones,Urine TRACE (Negative); Leukocyte Esterase,Urine TRACE (Negative); Nitrate,Urine POSITIVE (Negative); Protein,Urine 1+ (Negative); Specific Gravity, Urine 1.015 (1.005-1.030)
[2020-03-27 08:01] LABS: Amorphous Sediment,Urine 2+ /lpf; Bacteria,Urine 4+ /lpf; RBC,Urine Occasional #/hpf (0-3); Squamous Epithelial Cell,Urine Occasional #/hpf (0-5); WBC,Urine 20-50 #/hpf (0-3)
--- NOTE | 2020-03-27 08:47 | HMH.EDGENADL ---
ED Disposition Clinical Impression: Hypoglycemia, Cystitis Hypothermia Qualifiers: Encounter type: initial encounter Qualified Code(s): T68.XXXA - Hypothermia, initial encounter Disposition: Admitted as Observation Condition on Discharge: Serious - Critical Care Critical Care Time: Yes Attestation: On 03/27/20, the high probability of a clinically significant, sudden or life threatening deterioration of the following system(s) required my full and direct attention, intervention and personal management. The time I documented below is in addition to time spent performing reported procedures but includes the following listed in this critical care notation. Total Critical Care Time: 45 Vital system(s) involved:: Metabolic Failure My critical care processes included: Assessment & monitoring of V/S, Initial and Re-exams, Data Review/Interpretation, Coordinating Care, Medication Orders and management, Documentation Medical Decision Making - Medical Records Medical records reviewed: Yes: I reviewed the patient's medical records. - Alexandro Inquiry Pt receiving controlled substance: No Vital Signs: 03/27/20 06:47 03/27/20 07:06 03/27/20 07:30 Temperature 94.3 F L Temperature Source Rectal Pulse Rate Pulse Rate [Right Brachial] 73 72 Respiratory Rate 17 17 Blood Pressure Blood Pressure [Right Arm] 165/82 H 148/74 H Blood Pressure Mean [Right Arm] 109 98 Blood Pressure Source [Right Arm] Automatic Cuff Blood Pressure Position [Right Arm] Sitting 02 Sat by Pulse Oximetry 92 L Oxygen Delivery Method Room Air Oxygen Flow Rate (LPM) 03/27/20 07:46 03/27/20 08:30 03/27/20 09:12 Temperature 93.4 F L 94.3 F L Temperature Source Rectal Rectal Pulse Rate Pulse Rate [Right Brachial] 73 70 71 Respiratory Rate 16 17 16 Blood Pressure Blood Pressure [Right Arm] 164/77 H 133/62 149/80 H Blood Pressure Mean [Right Arm] 106 85 103 Blood Pressure Source [Right Arm] Automatic Cuff Blood Pressure Position [Right Arm] Sitting 02 Sat by Pulse Oximetry 98 95 96 Oxygen Delivery Method Nasal Cannula Nasal Cannula Nasal Cannula Oxygen Flow Rate (LPM) 2 2 2 03/27/20 09:38 03/27/20 10:00 03/27/20 10:30 Temperature 95 F L 96.3 F L Temperature Source Rectal Rectal Pulse Rate Pulse Rate [Right Brachial] 70 70 70 Respiratory Rate 16 12 17 Blood Pressure Blood Pressure [Right Arm] 169/80 H 169/77 H 175/76 H Blood Pressure Mean [Right Arm] 109 107 109 Blood Pressure Source [Right Arm] Blood Pressure Position [Right Arm] 02 Sat by Pulse Oximetry 95 95 98 Oxygen Delivery Method Nasal Cannula Nasal Cannula Oxygen Flow Rate (LPM) 2 2 03/27/20 10:47 03/27/20 11:43 Temperature 96.3 F L Temperature Source Rectal Pulse Rate 70 Pulse Rate [Right Brachial] Respiratory Rate 18 Blood Pressure 175/76 H Blood Pressure [Right Arm] Blood Pressure Mean [Right Arm] Blood Pressure Source [Right Arm] Blood Pressure Position [Right Arm] 02 Sat by Pulse Oximetry Oxygen Delivery Method Nasal Cannula Room Air Oxygen Flow Rate (LPM) - Lab Data Lab results reviewed: Yes: I reviewed the patient's lab results. Lab Results 03/27/20 06:55: WBC 7.8, RBC 3.96 L, Hgb 11.4 L, Hct 35.8 L, MCV 90.3, MCH 28.8, MCHC 31.9, RDW 18.0 H, Plt Count 194, MPV 8.5, Neut % (Auto) 53.5, Lymph % (Auto) 27.7, Swisher % (Auto) 7.0, Eos % (Auto) 10.6, Baso % (Auto) 1.3, Neut # (Auto) 4.2, Lymph # (Auto) 2.2, Swisher # (Auto) 0.6, Eos # (Auto) 0.8 H, Baso # (Auto) 0.1 03/27/20 06:55: Sodium 139, Potassium 3.1 L, Chloride 87 L, Carbon Dioxide 48 H*, Anion Gap 7.1, BUN 13, Creatinine 0.50 L, Estimated Creat Clear 93, Estimated GFR 163, Est GFR ( Amer) 197, Glucose 188 H, Calcium 8.7, Total Bilirubin 0.7, AST 39, ALT 11 L, Alkaline Phosphatase 83, Total Protein 6.5, Albumin 3.5, Globulin 3.0, Albumin/Globulin Ratio 1.2 03/27/20 06:55: Troponin I 0.02 03/27/20 06:55: SARS-CoV-2 IgG Ab (Rapid) Negative, SARS-C
[2020-03-27 09:01] LABS: POC Glucose,Bedside 141 (70-110)
--- NOTE | 2020-03-27 09:05 | XR_ITS ---
PROCEDURE: XR CHEST PORTABLE CLINICAL HISTORY: AMS Heart disease, altered mental status COMPARISON: No exams were available for comparison FINDINGS: There is cardiomegaly without failure. There has been a prior CABG with bipolar pacemaker present. There are small bilateral pleural effusions. There is some patchy density in the right lower lobe which could be related to the underlying effusion versus airspace disease in the right lung base. No acute bony abnormalities. IMPRESSION: Cardiomegaly with small bilateral effusions with right lower lobe atelectasis or infiltrate Dictated by: Coleman Delgado MD 03/28/2020 08:30 Coleman Delgado MD in [place] 03/28/2020 08:30
[2020-03-27 09:29] LABS: Troponin I 0.02 ng/ml (0.00-0.034)
--- NOTE | 2020-03-27 09:30 | PC.NURSE ---
LAB HERE TO OBTAIN BLOOD CULTURES AND LACTIC
--- NOTE | 2020-03-27 09:35 | PC.NURSE ---
BLOOD CX AND LACTIC DELAYED D/T DIFFICULT STICK
[2020-03-27 09:41] LABS: Coronavirus 19 IgG Antibody Negative (Negative); Coronavirus 19 IgM Antibody Negative (Negative)
--- NOTE | 2020-03-27 10:04 | HMH.HP ---
*Admission Date: 03/27/20 *Chief complaint: altered mental status - *History of present illness: pt with acute onset of diaphoresis and presented to the ed with low temp and low blood glu -The patient is a poor historian. He is brought in by ambulance for not feeling well. He was found to be hypoglycemic with a blood sugar of 38 by ambulance personnel. Blood sugar on arrival here was too low to register. Initially, IV was not able to be established and he was given glucagon. The patient has no specific complaints, says he just feels sick. pt was admitted for ivf and abx and monitor glu [facility] History I have reviewed the patient's past medical history: Yes Medical History: Reports:: Chronic Obstructive Pulmonary Disease (COPD), Coronary Artery Disease, Diabetes Mellitus Type 2, Hyperlipidemia, Hypertension, Internal Pacemaker, Lung Disease, Myocardial Infarction Denies:: Cancer, Diabetes Mellitus Type 1, MRSA, Seizures *Have you ever received a pneumonia vaccine?: Yes *Have you received a flu vaccine this season?: Yes Other Medical History: Reports: Anemia, Arthritis, Cataracts Laterality Cases: Left: Other Other Surgeries: Yes: Angioplasty, CABG (4 vessel), Cardiac Catheterization, Cardiac Surgery, Cholecystectomy, Colonoscopy, Coronary Stent, Pacemaker, Other Amputation: Yes Fractures: No - *Social History Smoking Status: Former smoker Tobacco Type: cigars #Yrs smoked (if former smoker): 40 Alcohol Intake: never Alcohol Intake Frequency:: 3 or more drinks per day Substance Use Type: denies use *Occupational Status:: retired Housing: apartment Household Members: spouse *Travel in the last 8 weeks: None Family Hx:: Cancer, Diabetes, Hyperlipidemia, Hypertension Review of Systems - Review of Systems Review of systems:: pertinent systems reviewed and negative unless documented below - Constitutional Denies fever(s) - Eyes Denies change in vision - ENT Denies facial pain - *Cardiovascular Denies chest pain at rest - *Respiratory Denies cough - *Gastrointestinal Denies abdominal pain - *Genitourinary Denies blood in urine - *Musculoskeletal Denies joint pain - Integumentary/Breasts Denies rash - *Neurologic Denies frequent falls, Denies headache(s) - Psychiatric Denies anxiety Meds Home Medications Medication Instructions Recorded Confirmed Type carbidopa 10 mg-levodopa 100 mg 1 tab PO HS #90 tab 08/19/19 03/27/20 Rx disintegrating tablet atorvastatin 40 mg tablet 40 mg PO DAILY #90 tab 01/08/20 03/27/20 Rx Sucralfate [Sucralfate 1gm 1 g PO QID 01/27/20 03/27/20 History Tab] Fluticasone Propionate [Flonase 1 spray NS DAILYP PRN 02/10/20 03/27/20 History Allergy Relief NS] Multivitamin/Iron/Folic Acid 1 each PO DAILY 02/10/20 03/27/20 History [Multi-Day Plus Iron Tablet] carvediloL [Carvedilol 3.125mg Tab] 3.125 mg PO BID 02/10/20 03/27/20 History lisinopriL [Zestril 5mg 5 mg PO DAILY 02/10/20 03/27/20 History Tablet] Aspirin 81 mg PO DAILY 02/16/20 03/27/20 History pantoprazole 40 mg tablet,delayed 40 mg PO BID #60 tab 02/18/20 03/27/20 Rx release gabapentin 600 mg tablet 600 mg PO TID #90 tab 03/04/20 03/27/20 Rx ondansetron HCl 4 mg tablet 4 mg PO TIDP PRN 03/04/20 03/28/20 History ferrous sulfate 325 mg (65 mg 325 mg PO DAILY 03/07/20 03/27/20 History iron) tablet furosemide 20 mg tablet 80 mg PO DAILY tab 03/07/20 03/27/20 History insulin glargine 100 unit/mL (3 37 unit SQ QPM ml 03/07/20 03/27/20 History mL) subcutaneous pen Tamsulosin HCl 0.4 mg PO DAILY 03/27/20 03/27/20 History Allergies Allergy/AdvReac Type Severity Reaction Status Date / Time No Known Drug Allergies Allergy Unknown -- Verified 03/07/20 13:28 Exam Vital signs and Labs for Last 24 Hours: Temp Pulse Resp BP Pulse Ox 95 F L 70 16 169/80 H 95 03/27/20 09:38 03/27/20 09:38 03/27/20 09:38 03/27/20 09:38 03/27/20 09:38 Laboratory Results - last 24 hr
[2020-03-27 10:08] LABS: Lactic Acid 0.6 mmol/L (0.7-2.1)
--- NOTE | 2020-03-27 10:32 | ECG_ITS ---
APPROVED REPORT Exam: Resting ECG HR:70 bpm ECG Measurements Heart Rate 70 AXES DC 148 P 13 QRSd 122 QRS 3 QT 466 T 189 QTc 503 <Conclusion> Normal sinus rhythm Nonspecific intraventricular conduction delay ST & T wave abnormality, consider inferior ischemia ST & T wave abnormality, consider anterolateral ischemia Abnormal ECG Electronically signed by : Hermes Randolph, 03/27/2020 17:05:44
[2020-03-27 10:38] LABS: POC Glucose,Bedside 95 (70-110)
--- NOTE | 2020-03-27 11:45 | PC.NURSE ---
Pt arrived to the floor at this time.
[2020-03-27 12:36] LABS: POC Glucose,Bedside 57 (70-110)
[2020-03-27 14:34] LABS: POC Glucose,Bedside 123 (70-110)
--- NOTE | 2020-03-27 16:05 | PC.NURSE ---
PT IS RESTING IN BED. ALERT AND ORIENTED X3. WHEN PT ARRIVED TO THE FLOOR EARLIER THIS AFTERNOON BLOOD SUGAR WAS IN THE 50'S. PT WAS NOT WANTING TO EAT WHAT WAS ON HIS LUNCH TRAY BUT HE DID DRINK ORANGE JUICE AND ATE SOME PEANUT BUTTER CRACKERS. RECHECK BLOOD SUGAR AT 1415 AND IT WAS 123. PT WAS ALSO ON THE OMAR HUGGER WHEN HE ARRIVED TO THE FLOOR AND WAS ABLE TO COME OFF AT 1450 WITH A 98.1 RECTAL TEMP. PT HAS WOUNDS NOTED TO BLE. LT TOE AMPUTATED. SMALL STAGE 2 WITH REDNESS NOTED TO THE BUTTOCKS. PT IS UNABLE TO SIGN BUT DID GIVE VERBAL CONSENT FOR PICTURES. ACCORDING TO PT HE IS UNABLE TO READ AND WRITE AND HIS TAKES CARE OF HIM AT HOME. LUNG SOUNDS DIMINISHED. ABDOMEN SOFT/NON TENDER WITH SCARRING NOTED FROM SURGERIES IN THE PAST. BOWEL SOUNDS NORMAL. PT STATES HIS LAST BOWEL MOVEMENT WAS YESTERDAY AFTERNOON. VSS. WILL CONTINUE TO MONITOR.
[2020-03-27 17:46] LABS: POC Glucose,Bedside 95 (70-110)
[2020-03-27 20:21] LABS: POC Glucose,Bedside 112 (70-110)
[2020-03-28 01:20] VITALS: BP 147/78; PULSE 83; RESP 18; TEMP 36.8; O2SAT 96
[2020-03-28 01:22] LABS: POC Glucose,Bedside 88 (70-110)
[2020-03-28 04:00] VITALS: BP 142/69; PULSE 86; RESP 22; TEMP 37; O2SAT 92
[2020-03-28 04:51] VITALS: BMI 28.7
[2020-03-28 05:49] LABS: POC Glucose,Bedside 111 (70-110)
--- NOTE | 2020-03-28 05:56 | PC.NURSE ---
Pt has rested comfortably t/o this shift. Pt c/o of stomach pain and nausea x1 this shift, PRN meds administered per OCT. Pt's blood sugars remain in normal range. Pt has been turned per request to relieve pressure off of buttocks. Pt requested to have salve applied to his coccyx area, and barrier cream was applied by staff. VSS. Call light within reach will continue to monitor.
[2020-03-28 07:38] LABS: Chloride 89 mmol/L (98-107); Potassium 3.7 mmoL/L (3.5-5.1); Sodium 139 mmol/L (136-145)
[2020-03-28 07:41] LABS: Blood Urea Nitrogen 12 mg/dl (9-20); Creatinine Clearance Estimated 87 mL/min (50-200); Estimated Glomerular Filt Rate 132 ml/min (>60); GFR (African American) 160 ML/MIN (>60); Glucose 111 mg/dl (74-100)
[2020-03-28 07:42] LABS: Calcium 8.6 mg/dl (8.4-10.2)
[2020-03-28 07:49] LABS: Anion Gap 7.7 mEq/L (5-15); Carbon Dioxide 46 mmol/L (22.0-30.0)
--- NOTE | 2020-03-28 07:56 | HMH.PHAVTE ---
[facility] VTE Monitoring - Patient Demographics Admission date: 03/28/20 Report Date: 03/28/20 Time: 07:56 Allergies/Adverse Reactions: Patient Allergies No Known Drug Allergies Allergy (Unknown, Verified 03/07/20 13:28) -- Height: 1.8 m Weight: 93 kg Patient Problems: Current Active Problems Hypoglycemia (Acute) Hypothermia (Acute) Cystitis (Acute) - VTE Risk Labs: VTE Related Lab Results Hgb 11.4 g/dL (14.1-18.0) L 03/27/20 06:55 Hct 35.8 % (42.0-52.0) L 03/27/20 06:55 Plt Count 194 K/mm3 (142-424) 03/27/20 06:55 BUN 12 mg/dl (9-20) 03/28/20 07:23 Creatinine 0.60 mg/dl (0.66-1.25) L 03/28/20 07:23 Estimated Creat Clear 87 mL/min (50-200) 03/28/20 07:23 Was VTE Risk Assessment Performed: Yes VTE Score: 6 VTE Risk Level: Moderate Risk Clinical Trial Participant: No - Prophylaxis VTE Prophylaxis Ordered?: Yes Types of VTE Prophylaxis: TEDS Knee High
[2020-03-28 08:00] VITALS: BP 133/56; PULSE 79; RESP 17; TEMP 37.3; O2SAT 97
--- NOTE | 2020-03-28 10:00 | XR_ITS ---
PROCEDURE: XR FOOT RT MIN 3V CLINICAL INDICATION: Wounds Pain COMPARISON: CR [id number] XR foot LT min 3V from 11/07/2017 CR [id number] XR foot LT min 3V from 11/07/2017 CR [id number] XR foot wt bearing LT 3V from 12/26/2017 FINDINGS: No fracture or dislocation. No lytic or blastic change. There is normal mineralization. There is diffuse vascular calcification. Small calcaneal spurs noted in there is some spurring along the anterior distal tibia. Other findings:None. IMPRESSION: No acute findings. Dictated by: Coleman Delgado MD 03/28/2020 11:17 Coleman Delgado MD in [place] 03/28/2020 11:17
--- NOTE | 2020-03-28 10:00 | XR_ITS ---
PROCEDURE: XR FOOT LT MIN 3V CLINICAL INDICATION: Wounds Pain COMPARISON: CR [id number] XR foot LT min 3V from 11/07/2017 CR [id number] XR foot LT min 3V from 11/07/2017 CR [id number] XR foot wt bearing LT 3V from 12/26/2017 FINDINGS: There has been amputation at the interphalangeal joint of the great toe. Flexion deformity involves the 2nd through 5th toes. No fracture or dislocation. No obvious lytic or bony destructive process evident. There is a small calcaneal spur. Other findings:There is generalized vascular calcification IMPRESSION: Prior amputation at the interphalangeal joint of the great toe with chronic changes. No acute finding Dictated by: Coleman Delgado MD 03/28/2020 11:18 Coleman Delgado MD in [place] 03/28/2020 11:18
--- NOTE | 2020-03-28 10:03 | US_ITS ---
APPROVED REPORT Exam Type: Lower Extremity Segmental Pressures Photography Instructor: Halina Rodriguez RDCS Indications Non-healing Ulcer: Bilaterally Edema PAD History of Smoking CAD Risk Factors Hypertension Obesity Diabetes Pressures/Indices Right Indices Left Indices Brachial 124.00 mmHg Brachial 135.00 mmHg Low Thigh 188.00 mmHg 1.39 Low Thigh 0.00 mmHg 0.00 Calf 121.00 mmHg 0.90 Calf 136.00 mmHg 1.01 Ankle(PT) 78.00 mmHg 0.58 Ankle(PT) 124.00 mmHg 0.92 Ankle(DP) 68.00 mmHg 0.50 Ankle(DP) 104.00 mmHg 0.77 Digit 60.00 mmHg 0.44 Digit 55.00 mmHg 0.41 Findings WAVEFORMS AND PULSES ARE DIMINISHED BILATERALLY R CONSTANTIN .6 L CONSTANTIN .9 R TBI .4 L TBI .4 Conclusion WAVEFORMS AND PULSES ARE DIMINISHED BILATERALLY R CONSTANTIN .6 L CONSTANTIN .9 R TBI .4 L TBI .4 MODERATE RIGHT AND MILD LEFT ARTERIAL DISEASE Electronically signed by : Coleman Delgado MD 03/28/2020 16:31:09
[2020-03-28 10:22] LABS: C-Reactive Protein 18.8 mg/L (0-4)
[2020-03-28 10:44] LABS: Erythrocyte Sedimentation Rate 48 mm/hr (0-20)
--- NOTE | 2020-03-28 11:11 | PC.NURSE ---
CONSTANTIN @ BS. Received call from Lavern Sainz APRN for Dr. Randle. She gave verbal order for me to put in order for podiatry consult.
--- NOTE | 2020-03-28 11:14 | HMH.ORTHOCON ---
*Admission Date: 03/28/20 <Lavern Sainz - 03/28/20 11:32> *Reason for consult:: Right DM foot ulcer, Routine Diabetic foot care <Lavern Sainz - 03/28/20 12:31> *History of present illness: Patient Name: Jagjit Servin Date of : 1945 Patient Status: Observation Attending Provider: Nitesh Nugent Date: 03/27/20 10:04 Initialization Date: 03/27/20 10:04 *Admission Date: 03/27/20 *Chief complaint: altered mental status - *History of present illness: pt with acute onset of diaphoresis and presented to the ed with low temp and low blood glu -The patient is a poor historian. He is brought in by ambulance for not feeling well. He was found to be hypoglycemic with a blood sugar of 38 by ambulance personnel. Blood sugar on arrival here was too low to register. Initially, IV was not able to be established and he was given glucagon. The patient has no specific complaints, says he just feels sick. pt was admitted for ivf and abx and monitor glu Mr. Servin admitted for what seen hypoglycemia episode, and altered mental status that has now been resolved. Patient resting in bed and alert and oriented x 3 this morning. Patient has not been seen in our office in a while. He states he was at [facility] in [place], [place] and is now back at home. The patient has an Left partial hallux amputation that he said was done by Dr. Randle some time ago, cant remember exactly the date. Mr. Servin was actually on our schedule to be seen today for bilateral foot pain at 3:00 today but since he is now inpatient we will now proceed to take care of him as inpatient. Patient does present with two left diabetic ulcers to the right lateral heel and some small ulcers on the right foot as well as the right hallux tip of 2nd toe all seem to be surficial. Patient does present with very long dystrophic nails that will need to be trimmed while he is here; I will take care of that today, as well as address the sites to the left foot. [facility] History Medical History: Reports:: Chronic Obstructive Pulmonary Disease (COPD), Coronary Artery Disease, Diabetes Mellitus Type 2, Hyperlipidemia, Hypertension, Internal Pacemaker, Lung Disease, Myocardial Infarction Denies:: Cancer, Diabetes Mellitus Type 1, MRSA, Seizures *Have you ever received a pneumonia vaccine?: Yes *Have you received a flu vaccine this season?: Yes Other Medical History: Reports: Anemia, Arthritis, Cataracts Laterality Cases: Left: Other Other Surgeries: Yes: Angioplasty, CABG (4 vessel), Cardiac Catheterization, Cardiac Surgery, Cholecystectomy, Colonoscopy, Coronary Stent, Pacemaker, Other Amputation: Yes Fractures: No - *Social History Smoking Status: Former smoker Tobacco Type: cigars #Yrs smoked (if former smoker): 40 Alcohol Intake: never Alcohol Intake Frequency:: 3 or more drinks per day Substance Use Type: denies use *Occupational Status:: retired Housing: apartment Household Members: spouse *Travel in the last 8 weeks: None Family Hx:: Cancer, Diabetes, Hyperlipidemia, Hypertension <Lavern Sainz 03/28/20 13:17> [facility] History Medical History: Reports:: Congestive Heart Failure, Chronic Obstructive Pulmonary Disease (COPD), Coronary Artery Disease, Diabetes Mellitus Type 2, Hyperlipidemia, Hypertension, Internal Pacemaker, Lung Disease, Myocardial Infarction Denies:: Cancer, Diabetes Mellitus Type 1, MRSA, Seizures <Lavern Sainz 03/28/20 11:32> *Have you ever received a pneumonia vaccine?: Yes <Lavern Sainz 03/28/20 11:32> *Have you received a flu vaccine this season?: Yes <Lavern Sainz 03/28/20 11:32> Other Medical History: Reports: Anemia, Arthritis, Cataracts <Lavern Sainz 03/28/20 11:32> Laterality Cases: Left: Other <Lavern Sainz 03/28/20 11:32> Other Surgeries: Yes: Angioplasty, CABG (4 vessel), Cardiac Catheterization, Cardiac Surgery, Cholecystectomy,
[2020-03-28 11:54] LABS: POC Glucose,Bedside 159 (70-110)
--- NOTE | 2020-03-28 13:06 | HMH.ACPN2 ---
Internal Medicine - PN: Subj *Date: 03/28/20 *Time: 18:06 Interval history: Patient is awake alert and lucid this morning. He has had no further hypoglycemic episodes during the night. Lesions to bilateral feet are noted. Suspected hypo-perfusion. Podiatry and cardiology are consulted. Peripheral runoff is planned. Blood cultures are negative. Urine culture is growing a gram-negative taylor, final ID is pending. He is on Invanz. Exam Vital signs and Labs for Last 24 Hours: Temp Pulse Resp BP Pulse Ox 99.1 F 79 17 133/56 L 97 03/28/20 08:00 03/28/20 08:00 03/28/20 08:00 03/28/20 08:00 03/28/20 08:00 Laboratory Results - last 24 hr 03/27/20 07:47: Urine Color Yellow, Urine Appearance Cloudy, Urine pH 7.0, Ur Specific [place] 1.015, Urine Protein 1+, Urine Glucose (UA) Trace, Urine Ketones Trace, Urine Blood Negative, Urine Nitrate Positive, Urine Bilirubin Negative, Urine Urobilinogen 1.0, Ur Leukocyte Esterase Trace, Urine RBC Occasional, Urine WBC 20-50, Ur Squamous Epith Cells Occasional, Amorphous Sediment 2+, Urine Bacteria 4+ 03/27/20 14:11: POC Glucose 123 H 03/27/20 16:56: POC Glucose 95 03/27/20 20:03: POC Glucose 112 H 03/28/20 01:14: POC Glucose 88 03/28/20 05:42: POC Glucose 111 H 03/28/20 07:23: Sodium 139, Potassium 3.7, Chloride 89 L, Carbon Dioxide 46 H*, Anion Gap 7.7, BUN 12, Creatinine 0.60 L, Estimated Creat Clear 87, Estimated GFR 132, Est GFR ( Amer) 160, Glucose 111 H, Calcium 8.6 03/28/20 07:24: ESR 48 H 03/28/20 07:24: C-Reactive Protein 18.8 H 03/28/20 11:42: POC Glucose 159 H I & O for Last 24 hours: Intake & Output 03/25/20 03/26/20 03/27/20 03/28/20 23:59 23:59 23:59 23:59 Intake Total 480 / 480 709 / 709 Output Total 350 / 350 225 / 225 Balance 130 / 130 484 / 484 Weight 199 lb 2 oz 205 lb 0.478 oz Microbiology Reports for the Last 24 Hours: Microbiology 03/27/20 07:47 Urine,Catheterized Urine Culture - Preliminary Gram Negative Rods - Constitutional no acute distress, chronically ill appearing - *Routine HEENT Exam Head: Present: normocephalic Eye: Present: EOMI, PERRL ENT: Present: mucous membranes moist - *Routine Neck Exam Present: supple. Absent: lymphadenopathy - *Routine Respiratory Exam Present: CTA bilaterally - *Routine Cardiovascular Exam Present: RRR - *Routine Abdominal Exam Present: soft, normoactive bowel sounds. Absent: tenderness - *Routine Extremities Exam Absent: cyanosis, pulses intact, normal capillary refill - *Routine Skin Exam Present: wounds. Absent: cyanosis, jaundice - *Routine Neurological Exam Present: alert, oriented X3, vision grossly intact, hearing grossly intact Assessment and Plan (1) Onychodystrophy Start date: 03/28/20 Current visit: Yes Status: Acute Category: Medical Code(s): L60.3 - Nail dystrophy (2) Onychogryphosis Start date: 03/28/20 Current visit: Yes Status: Acute Category: Medical Code(s): L60.2 - Onychogryphosis (3) Keratosis Start date: 03/28/20 Current visit: Yes Status: Acute Category: Medical Code(s): L57.0 - Actinic keratosis (4) Diabetic foot Start date: 03/28/20 Current visit: Yes Status: Acute Category: Medical Code(s): E11.8 - Type 2 diabetes mellitus with unspecified complications (5) Diabetic ulcer of right foot associated with diabetes mellitus due to underlying condition Start date: 03/28/20 Current visit: Yes Status: Acute Qualifiers: Non-pressure ulcer stage: with fat layer exposed Category: Medical Code(s): E08.621 - Diabetes mellitus due to underlying condition with foot ulcer; L97.519 - Non-pressure chronic ulcer of other part of right foot with unspecified severity (6) Diabetic ulcer of toe of left foot associated with type 2 diabetes mellitus Start date: 03/28/20 Current visit: Yes Status: Acute Qualifiers: Non-pressure ulcer stage: l
--- NOTE | 2020-03-28 13:55 | PC.NURSE ---
cardiology (Mickey Floyd PA) @ BS
--- NOTE | 2020-03-28 14:07 | SW/DCPLANNER ---
Addendum entered by Pina Billings 03/30/20 11:13: Patient also already has home O2, rolling walker and family assistance with daily dressing changes. Addendum entered by Pinasherrell Billings 03/30/20 11:02: I have also faxed a new order for dressing changes to [facility] and spoke with Jaron to confirm patient information has been received and services will begin tomorrow for this patient. Addendum entered by Pinasherrell Billings 03/30/20 10:02: Patient information has been faxed [facility] to resume home health services. I will follow up with [facility] once patient information is reviewed. Patient will discharge home today. Original Note: This patient currently receives services from [facility] per Jaron. I will continue to follow up with [facility] once patient is stable for discharge.
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
[2020-03-28 16:00] VITALS: BP 145/72; PULSE 81; RESP 17; TEMP 37.2; O2SAT 97
--- NOTE | 2020-03-28 16:35 | PC.NURSE ---
brought in medication bottles from home. Compared to med list on chart. 2 discrepancies noted. Lasix and Gabapentin in chart are wrong. According to pt's home medication bottles, pt is taking Lasix 80mg daily and Gabapentin 600mg QID. Medication reconciliation completed.
[2020-03-28 16:43] LABS: POC Glucose,Bedside 107 (70-110)
[2020-03-28 17:14] VITALS: BMI 28.7
--- NOTE | 2020-03-28 17:19 | PC.NURSE ---
No issues noted this shift. VSS. Will be NPO @ [place] for r&d lab technician procedure (lower extremity runoff) tomorrow. Dr. Randle changed dressing to right foot. Remains on 3L NC. No issues with temps today. Bedrest. A&O.
--- NOTE | 2020-03-28 19:20 | PC.NURSE ---
report given to quentin
[2020-03-28 20:00] VITALS: BP 147/72; PULSE 81; RESP 17; TEMP 37.1; O2SAT 98
[2020-03-28 20:59] LABS: POC Glucose,Bedside 145 (70-110)
[2020-03-29] VITALS (27 sets, daily range): BP systolic 123–159; BP diastolic 53–87; PULSE 70–99; RESP 16–18; TEMP 36.7–37.1; O2SAT 88–100; BMI 28.5
--- NOTE | 2020-03-29 | IR_ITS ---
APPROVED REPORT Patient Location: OutpatientInpatient PROCEDURES Catheter placed in the abdominal aorta Bilateral iliofemoral runoff INDICATION [place] class IV-V claudication, Abnormal CONSTANTIN, Peripheral artery disease Informed consent was obtained prior to the procedure. COMPLICATIONS none Estimated Blood Loss: less than 10 mls TECHNIQUE 1% lidocaine used anesthetize the right groin the right femoral artery was accessed via the Salinger technique and a 5 Syriac sheath was placed in the right femoral artery. A pigtail catheter was advanced into the abdominal aorta and bilateral iliofemoral runoff was performed. At the end of the procedure the patient was transferred to the postop holding in stable condition for sheath removal ANGIOGRAPHIC RESULTS The distal abdominal aorta is normal. The bilateral common iliac arteries have mild [id number] atheromatous plaque. The bilateral internal iliac arteries are widely patent. The bilateral external iliac arteries are widely patent. The bilateral common femoral arteries are normal. The bilateral profunda femoris arteries are normal. The right superficial femoral artery is moderately externally calcified with 30% stenosis in the proximal segment 40 and 50% tandem stenoses in the distal SFA and proximal popliteal artery at Americo's canal. There is an additional 50% mid vessel stenosis in the right popliteal artery. At the infrageniculate level the popliteal artery is occluded. There are very small scant collaterals which collateralized the peroneal artery which makes it 5 cm proximal to the right foot. This vascularity at the infrageniculate level is very small in caliber with very scant collaterals all consistent with severe small vessel diffuse vasculopathy The left superficial femoral artery is widely patent with mild to moderate [id number] stenoses in the proximal mid and distal segment. At Americo's canal there is a 40% stenosis transitioning into the popliteal artery. An additional mid vessel 40 to 50% stenosis is identified at the midportion and at the distal aspect of the popliteal artery is a 90% focal stenosis. Distal to this 90% stenosis or patent peroneal arteries and a posterior tibialis artery. These are very small caliber and size. The anterior tibialis artery is proximally subtotally occluded and then re-reconstitutes in the proximal segment via a very small caliper collaterals. The anterior tibialis artery appears to become subtotally occluded at mid calf and then reconstitutes in a very small scant vessel as a dorsalis pedis artery. The popliteal artery at the 90% stenosis is small approximately 2 to 3 mm in diameter IMPRESSION Peripheral artery disease as described above most notably severe small vessel diffuse infrageniculate disease all consistent with severe small vessel vasculopathy PLAN 1. Xarelto 2.5 twice daily plus aspirin 81 mg daily 2. LDL less than 55 3. Physical therapy as tolerated 4. At this point there is nothing that can be performed from a percutaneous standpoint to improve patient's lower extremity flow. The distal runoff is so poor with such severe small vessel vasculopathy placing a stent in the distal left popliteal artery would almost certainly cause acute or subacute thrombosis. Given a stent would actually worsen patient's clinical situation medical management is the only viable option. 5. Continue wound care and amputation as needed Electronically signed by : Terry Rader, 03/29/2020 14:16:08
--- NOTE | 2020-03-29 03:38 | PC.NURSE ---
Pt A&OX4. lungs CTA. pt on 3L @ NC 02 93%. Pt voided per brief no BM this shift. Pt denies any pain or SOA. pt slept quietly this shift. VSS will continue to monitor
[2020-03-29 05:10] LABS: POC Glucose,Bedside 111 (70-110)
[2020-03-29 08:12] LABS: Chloride 88 mmol/L (98-107); Potassium 3.9 mmoL/L (3.5-5.1); Sodium 138 mmol/L (136-145)
[2020-03-29 08:15] LABS: Blood Urea Nitrogen 12 mg/dl (9-20); Calcium 8.5 mg/dl (8.4-10.2); Creatinine Clearance Estimated 86 mL/min (50-200); Estimated Glomerular Filt Rate 132 ml/min (>60); GFR (African American) 160 ML/MIN (>60); Glucose 110 mg/dl (74-100)
--- NOTE | 2020-03-29 08:22 | HMH.ORTHPN ---
Subjective Date: 03/29/20 <Lavern Sainz - 03/29/20 08:46> Time: 08:22 <Lavern Sainz - 03/29/20 08:46> Principal diagnosis: Right foot DM ulcers <Lavern Sainz - 03/29/20 08:46> Interval history: Patient seen and evaluated by myself and SPIKE Sainz. He is resting comfortably at the bedside. Denies pain to the feet. No heel protectors or pillow to off load in place. <Padmini Randle - 03/29/20 09:31> Patient resting in bed this morning, denies any N/V/D. Patient has been NPO through the night he is to have a cardiac procedure around noon. Patient denies any pain with his feet and I will do his dressing change this morning. Patient does present with two left diabetic ulcers to the right lateral heel and some small ulcers on the right foot as well as the right hallux tip of 2nd toe all seem to be surficial. The sites are looking some better this morning, we will debrided them with a sterile curette and redress them with xeroform, Betadine soaked 4 x 4, dry 4 x 4, Kerlix and offload heels off from a pillow to keep from applying more pressure to the heels. <Lavern Sainz - 03/29/20 08:46> PN: Obj Ex Vital signs: Temp Pulse Resp BP Pulse Ox 98.8 F 94 H 18 145/77 H 93 L 03/29/20 08:00 03/29/20 08:00 03/29/20 08:00 03/29/20 08:00 03/29/20 09:00 <Padmini Randle - 03/29/20 09:41> Temp Pulse Resp BP Pulse Ox 98.1 F 73 18 138/76 93 L 03/29/20 04:00 03/29/20 04:00 03/29/20 04:00 03/29/20 04:00 03/29/20 04:00 <Lavern Sainz - 03/29/20 08:46> - Constitutional no acute distress <Lavern Sainz - 03/29/20 08:46> - Routine HEENT Exam Head: Present: normocephalic <Lavern Sainz - 03/29/20 08:46> Eye: Present: PERRL <Lavern Sainz - 03/29/20 08:46> ENT: Present: mucous membranes moist <Lavern Sainz - 03/29/20 08:46> - Routine Neck Exam Present: full ROM, trachea midline <Lavern Sainz - 03/29/20 08:46> - Routine Respiratory Exam Absent: accessory muscle use, respiratory distress <Lavern Sainz - 03/29/20 08:46> - Routine Cardiovascular Exam Present: RRR <Lavern Sainz - 03/29/20 08:46> - Routine Abdominal Exam Present: soft, obese <Lavern Sainz - 03/29/20 08:46> - Routine Extremities Exam Present: normal capillary refill <Lavern Sainz - 03/29/20 08:46> Comments: Left partial hallux amputation, wounds to left 2nd top of toe, Right top of foot, Tip of Right hallux, right lateral foot and right lateral heel. <Lavern Sainz - 03/29/20 08:46> - Detailed Lower Extremity Exam Top foot image: 1 - History of left hallux partial amputation due to osteomyelitis. 2 - Left second type of toe small ulcer, superficial measuring 0.3 x 0.2 x 0 cm. 100% granular tissue noted. Dressing is with Xeroform, Betadine soaked 4 x 4, dry 4 x 4, Kerlix. 3 - Top right midfoot superficial ulcer measuring 0.2 x 0.2 x 0 cm, 100% granular tissue noted. Dressed with Xeroform, Betadine soaked 4 x 4, dry 4 x 4, Kerlix 4 - Right distal tip scab was debrided small superficial wound noted with measurements of 0.4 x 0.5 x 0 cm 100% granular tissue noted. [id number]% granular tissue noted. Dressed with Xeroform, Betadine soaked 4 x 4, dry 4 x 4, Kerlix 5 - Right lateral foot scab was debrided off leaving 100% granular tissue noted measurements post debridement 1.5 x 1.6 x 0 cm [id number]% granular tissue noted. Dressed with Xeroform, Betadine soaked 4 x 4, dry 4 x 4, Kerlix 6 - Right lateral heel, 20% granular ring noted, 80% brown eschar still remaining intact. Good bleeding was noted to the granular ring. The brown eschar was crosshatched in the center to promote healing,100% granular tissue noted. Dressed with Xeroform, Betadine soaked 4 x 4, dry 4 x 4, Kerlix <Lavern Sainz L - 03/29/20 08:46> - Routine Back/Spine/Pelvis Exam Back/Spine: Present: full ROM <Lavern Sainz
[2020-03-29 08:30] LABS: Anion Gap 9.9 mEq/L (5-15); Carbon Dioxide 44 mmol/L (22.0-30.0)
--- NOTE | 2020-03-29 09:35 | HMH.ACPN2 ---
Internal Medicine - PN: Subj *Date: 03/29/20 *Time: 09:35 Interval history: 74-year-old male patient lying in bed resting quietly, dressings to bilateral feet clean dry and intact. Cardiology has been consulted and recommended lower extremity runoff. Plan on that occurring today and will adjust care accordingly to results and cardiology recommendation. Patient was explained this, replies he answered he understands and denies any further needs or concerns. Urine culture has grown Klebsiella pneumoniae oznaenae, it is sensitive to ertapenem and is receiving that IV Exam Vital signs and Labs for Last 24 Hours: Temp Pulse Resp BP Pulse Ox 98.2 F 82 18 140/77 90 L 03/29/20 17:15 03/29/20 18:15 03/29/20 18:15 03/29/20 18:15 03/29/20 18:15 Laboratory Results - last 24 hr 03/27/20 06:43: POC Glucose < 40 L* 03/27/20 06:44: POC Glucose < 40 L* 03/28/20 20:43: POC Glucose 145 H 03/29/20 04:59: POC Glucose 111 H 03/29/20 07:55: Sodium 138, Potassium 3.9, Chloride 88 L, Carbon Dioxide 44 H*, Anion Gap 9.9, BUN 12, Creatinine 0.60 L, Estimated Creat Clear 86, Estimated GFR 132, Est GFR ( Amer) 160, Glucose 110 H, Calcium 8.5 03/29/20 11:35: POC Glucose 103 03/29/20 17:00: POC Glucose 81 I & O for Last 24 hours: Intake & Output 03/26/20 03/27/20 03/28/20 03/29/20 23:59 23:59 23:59 23:59 Intake Total 480 / 480 1913 896 / 896 Output Total 350 / 350 675 / 675 640 / 640 Balance 130 / 130 1239 / 1339 256 / 256 Weight 199 lb 2 oz 205 lb 0.478 oz 204 lb 6.4 oz Microbiology Reports for the Last 24 Hours: Microbiology 03/27/20 09:51 Blood Blood Culture - Preliminary NO GROWTH AFTER 48 HOURS 03/27/20 09:51 Blood Blood Culture - Preliminary NO GROWTH AFTER 48 HOURS 03/27/20 07:47 Urine,Catheterized Urine Culture - Final Klebsiella pneumoniae ozaenae - Constitutional no acute distress - *Routine HEENT Exam Head: Present: normocephalic ENT: Present: mucous membranes moist. Absent: sinus tenderness - *Routine Neck Exam Present: trachea midline. Absent: JVD, tracheal deviation - *Routine Respiratory Exam Present: decreased breath sounds. Absent: accessory muscle use - *Routine Cardiovascular Exam Present: RRR, murmur - *Routine Abdominal Exam Present: soft, normoactive bowel sounds. Absent: tenderness, firm - *Routine Extremities Exam Present: edema. Absent: calf tenderness - *Routine Skin Exam Present: wounds Comments: Dressings to bilateral feet clean dry and intact - *Routine Neurological Exam Present: alert. Absent: altered mental status - Routine Psychiatric Exam Absent: unable to assess Assessment and Plan (1) Onychodystrophy Start date: 03/28/20 Current visit: Yes Status: Acute Category: Medical Code(s): L60.3 - Nail dystrophy (2) Onychogryphosis Start date: 03/28/20 Current visit: Yes Status: Acute Category: Medical Code(s): L60.2 - Onychogryphosis (3) Keratosis Start date: 03/28/20 Current visit: Yes Status: Acute Category: Medical Code(s): L57.0 - Actinic keratosis (4) Diabetic foot Start date: 03/28/20 Current visit: Yes Status: Acute Category: Medical Code(s): E11.8 - Type 2 diabetes mellitus with unspecified complications (5) Diabetic ulcer of right foot associated with diabetes mellitus due to underlying condition Start date: 03/28/20 Current visit: Yes Status: Acute Qualifiers: Non-pressure ulcer stage: with fat layer exposed Category: Medical Code(s): E08.621 - Diabetes mellitus due to underlying condition with foot ulcer; L97.519 - Non-pressure chronic ulcer of other part of right foot with unspecified severity (6) Diabetic ulcer of toe of left foot associated with type 2 diabetes mellitus Start date: 03/28/20 Current visit: Yes Status: Acute Qualifiers: Non-pressure
[2020-03-29 09:54] LABS: POC Glucose,Bedside < 40 (70-110)
[2020-03-29 09:54] LABS: POC Glucose,Bedside < 40 (70-110)
[2020-03-29 11:42] LABS: POC Glucose,Bedside 103 (70-110)
--- NOTE | 2020-03-29 16:33 | HMH.PNCARD ---
Subjective Date: 03/29/20 Time: 16:33 Principal diagnosis: Right foot DM ulcers Interval history: 74-year-old white male in bed post lower extremity runoff in no acute distress. Denies any chest pain, pressure or tightness. Results of the angiogram discussed with the patient with recommendation for medical therapy. Exam Vital signs and Labs for Last 24 Hours: Temp Pulse Resp BP Pulse Ox 98.4 F 80 16 131/71 100 03/29/20 11:49 03/29/20 14:15 03/29/20 14:15 03/29/20 14:15 03/29/20 14:15 Laboratory Results - last 24 hr 03/27/20 06:43: POC Glucose < 40 L* 03/27/20 06:44: POC Glucose < 40 L* 03/28/20 16:27: POC Glucose 107 03/28/20 20:43: POC Glucose 145 H 03/29/20 04:59: POC Glucose 111 H 03/29/20 07:55: Sodium 138, Potassium 3.9, Chloride 88 L, Carbon Dioxide 44 H*, Anion Gap 9.9, BUN 12, Creatinine 0.60 L, Estimated Creat Clear 86, Estimated GFR 132, Est GFR ( Amer) 160, Glucose 110 H, Calcium 8.5 03/29/20 11:35: POC Glucose 103 I & O for Last 24 hours: Intake & Output 03/27/20 03/28/20 03/29/20 03/30/20 11:59 11:59 11:59 11:59 Intake Total 1189 / 1189 1861 / 1861 0 / 0 Output Total 575 / 575 840 / 840 Balance 614 / 614 1021 / 1021 0 / 0 Weight 199 lb 2 oz 205 lb 0.478 oz 204 lb 6.4 oz Microbiology Reports for the Last 24 Hours: Microbiology 03/27/20 09:51 Blood Blood Culture - Preliminary NO GROWTH AFTER 48 HOURS 03/27/20 09:51 Blood Blood Culture - Preliminary NO GROWTH AFTER 48 HOURS 03/27/20 07:47 Urine,Catheterized Urine Culture - Final Klebsiella pneumoniae ozaenae - *Routine HEENT Exam Head: Present: normocephalic Eye: Present: EOMI, PERRL ENT: Present: mucous membranes moist - *Routine Respiratory Exam Present: CTA bilaterally - *Routine Cardiovascular Exam Present: RRR - *Routine Neurological Exam Present: alert, oriented X3 Progress Note: A&P (1) Onychodystrophy Status: Acute Current Visit: Yes (2) Onychogryphosis Status: Acute Current Visit: Yes (3) Keratosis Status: Acute Current Visit: Yes (4) Diabetic foot Status: Acute Current Visit: Yes (5) Diabetic ulcer of right foot associated with diabetes mellitus due to underlying condition Status: Acute Current Visit: Yes (6) Diabetic ulcer of toe of left foot associated with type 2 diabetes mellitus Status: Acute Current Visit: Yes (7) Hypoglycemia Status: Acute Current Visit: Yes (8) PAD (peripheral artery disease) Status: Acute Current Visit: Yes Assessment and Plan for All Diagnoses:: Small vessel PAD with recommendation for aspirin 81 mg daily and low-dose Xarelto therapy (2.5 mg twice daily) Nonhealing diabetic ulcers of the feet, per podiatry Coronary artery disease, clinically stable Patient should be stable for discharge home tomorrow. Will need close observation due to history of GI bleed on prior dual antiplatelet therapy.
[2020-03-29 17:09] LABS: POC Glucose,Bedside 81 (70-110)
--- NOTE | 2020-03-29 17:33 | PC.NURSE ---
pt has done well this shift. dressing to right groin is cdi. no hematoma noted. pt is still on 2l nc, every time staff attempts to wean pt o2 down to 1-1.5L nc, pt desats to 85% or below. other vss. will cont. to monitor.
[2020-03-29 20:32] LABS: POC Glucose,Bedside 118 (70-110)
[2020-03-30] VITALS: BP 137/59; PULSE 67; RESP 16; TEMP 37.3; O2SAT 92
--- NOTE | 2020-03-30 03:58 | PC.NURSE ---
Pt A&OX4. lungs CTA pt denies any pain or SOA. Post peripheral angiogram incision dressing c/d/i. Pt slept quietly this shift. VSS will continue to monitor
[2020-03-30 04:00] VITALS: BP 148/58; PULSE 76; RESP 17; TEMP 37; O2SAT 95
[2020-03-30 05:00] VITALS: BMI 29.1
[2020-03-30 05:38] LABS: POC Glucose,Bedside 105 (70-110)
[2020-03-30 07:23] LABS: Basophils # 0.1 K/mm3 (0-0.2); Basophils % 0.8 % (0.1-2.0); Eosinophils # 0.6 K/mm3 (0.0-0.4); Eosinophils % 8.5 % (0.1-12.0); Hematocrit 30.7 % (42.0-52.0); Hemoglobin 9.8 g/dL (14.1-18.0); Lymphocytes # 1.8 K/mm3 (0.7-4.5); Lymphocytes % 25.6 % (10-50); Mean Corpuscular Hemoglobin 28.6 pg (27.0-31.2); Mean Corpuscular Volume 89.5 fl (80-94); Mean Platelet Volume 8.5 fl (7.4-10.4); Monocytes # 0.6 K/mm3 (0.1-1.0); Neutrophils % 57.2 % (37.0-80.0); Platelet Count 162 K/mm3 (142-424); Red Blood Count 3.43 M/mm3 (4.60-6.20); Red Cell Distribution Width 17.6 % (11.5-17.5)
--- NOTE | 2020-03-30 07:27 | HMH.ORTHPN ---
Subjective Date: 03/30/20 <Padmini Randle 03/30/20 07:35> Time: 07:15 <Padmini Randle 03/30/20 07:35> Principal diagnosis: Right foot DM ulcers <Padmini Randle 03/30/20 07:35> Interval history: Patient resting comfortably at the bedside eating breakfast. He denies pain to the feet today. Dressings are clean dry and intact and feet are offloaded with pillow. <Padmini Randle 03/30/20 07:35> PN: Obj Ex Vital signs: Temp Pulse Resp BP Pulse Ox 98.2 F 77 18 138/68 94 L 03/30/20 07:55 03/30/20 07:55 03/30/20 07:55 03/30/20 07:55 03/30/20 07:55 <Lavern Sainz L - 03/30/20 11:11> Temp Pulse Resp BP Pulse Ox 98.6 F 76 17 148/58 H 95 03/30/20 04:00 03/30/20 04:00 03/30/20 04:00 03/30/20 04:00 03/30/20 04:00 <Padmini Randle 03/30/20 07:35> - Constitutional no acute distress <Padmini Randle 03/30/20 07:35> - Routine HEENT Exam Head: Present: normocephalic <Padmini Randle 03/30/20 07:35> - Routine Neck Exam Present: supple <Padmini Randle 03/30/20 07:35> - Routine Chest/Breast/Axilla Exam Chest wall: Absent: tenderness <Padmini Randle 03/30/20 07:35> - Routine Respiratory Exam Present: accessory muscle use. Absent: respiratory distress <Padmini Randle 03/30/20 07:35> - Routine Cardiovascular Exam Present: RRR <Padmini Randle 03/30/20 07:35> - Routine Abdominal Exam Present: soft <Padmini Randle 03/30/20 07:35> - Routine Extremities Exam Present: edema. Absent: normal capillary refill <Padmini Randle 03/30/20 07:35> - Detailed Lower Extremity Exam Top foot image: 1 - History of left hallux partial amputation due to osteomyelitis. 2 - Left second type of toe small ulcer, superficial measuring 0.3 x 0.2 x 0 cm. 100% granular tissue noted. Dressing is with Xeroform, Betadine soaked 4 x 4, dry 4 x 4, Kerlix. 3 - Top right midfoot superficial ulcer measuring 0.2 x 0.2 x 0 cm, 100% granular tissue noted. Dressed with Xeroform, Betadine soaked 4 x 4, dry 4 x 4, Kerlix 4 - Right distal tip small superficial wound noted with measurements of 0.4 x 0.5 x 0 cm 100% granular tissue noted. [id number]% granular tissue noted. Dressed with Xeroform, Betadine soaked 4 x 4, dry 4 x 4, Kerlix 5 - Right lateral foot was debrided off leaving 100% granular tissue noted measurements post debridement 1.5 x 1.6 x 0 cm [id number]% granular tissue noted. Dressed with Xeroform, Betadine soaked 4 x 4, dry 4 x 4, Kerlix 6 - Right lateral heel, 20% granular ring noted, 80% brown eschar still remaining intact. Good bleeding was noted to the granular ring. The brown eschar was crosshatched in the center to promote healing,100% granular tissue noted. Dressed with Xeroform, Betadine soaked 4 x 4, dry 4 x 4, Kerlix <Lavern Sainz - 03/30/20 08:31> - Routine Back/Spine/Pelvis Exam Back/Spine: Present: full ROM <Padmini Randle - 03/30/20 07:35> - Routine Skin Exam Present: dry, pallor, wounds <Padmini Randle 03/30/20 07:35> - Routine Neurological Exam Present: alert, oriented X3, sensory deficit <Padmini Randle - 03/30/20 07:35> - Routine Psychiatric Exam Present: cooperative <Lavern Sainz - 03/30/20 08:31> Present: normal affect <Padmini Randle - 03/30/20 07:35> Progress Note: A&P (1) Onychodystrophy Status: Acute Current Visit: Yes (2) Onychogryphosis Status: Acute Current Visit: Yes (3) Keratosis Status: Acute Current Visit: Yes (4) Diabetic foot Status: Acute Current Visit: Yes (5) Diabetic ulcer of right foot associated with diabetes mellitus due to underlying condition Status: Acute Current Visit: Yes (6) Diabetic ulcer of toe of left foot associated with type 2 diabetes mellitus Status: Acute Current Visit: Yes (7) Hypoglycemia Status: Acute Current Visit: Yes (8) PAD (peripheral artery disease) Stat
[2020-03-30 07:30] LABS: Chloride 85 mmol/L (98-107); Potassium 3.7 mmoL/L (3.5-5.1); Sodium 136 mmol/L (136-145)
[2020-03-30 07:33] LABS: Blood Urea Nitrogen 13 mg/dl (9-20); Creatinine Clearance Estimated 88 mL/min (50-200); Estimated Glomerular Filt Rate 132 ml/min (>60); GFR (African American) 160 ML/MIN (>60)
[2020-03-30 07:34] LABS: Calcium 8.1 mg/dl (8.4-10.2); Glucose 99 mg/dl (74-100)
[2020-03-30 07:43] LABS: Anion Gap 8.7 mEq/L (5-15); Carbon Dioxide 46 mmol/L (22.0-30.0)
[2020-03-30 07:55] VITALS: BP 138/68; PULSE 77; RESP 18; TEMP 36.8; O2SAT 94
--- NOTE | 2020-03-30 09:26 | HMH.DCSUM ---
General - General Admission date:: 03/27/20 Discharge date: 03/30/20 HPI HPI: pt with acute onset of diaphoresis and presented to the ed with low temp and low blood glu -The patient is a poor historian. He is brought in by ambulance for not feeling well. He was found to be hypoglycemic with a blood sugar of 38 by ambulance personnel. Blood sugar on arrival here was too low to register. Initially, IV was not able to be established and he was given glucagon. The patient has no specific complaints, says he just feels sick. pt was admitted for ivf and abx and monitor glu Hospital Course Hospital Course: 74 YOM with acute onset of diaphoresis and presented to the ed with low temp and low blood glu -The patient is a poor historian. He is brought in by ambulance for not feeling well. He was found to be hypoglycemic with a blood sugar of 38 by ambulance personnel. Blood sugar on arrival here was too low to register. Initially, IV was not able to be established and he was given glucagon. The patient has no specific complaints, says he just feels sick. pt was admitted for ivf and abx and monitor glu After initial episode of hypoglycemia patient's blood sugars have been above 100 during his stay. his vital signs have been stable he has been afebrile other than a one-time episode of temperature 99.2. Urine culture has grown Klebsiella pneumoniae oznaenae, he has received Invanz for this IV while inpatient and will be discharged on Levaquin p.o. Blood cultures have been negative x2 Discussed discharge home with patient today with home health care, he is agreeable to this. Chest x-ray 03/27/2020: IMPRESSION Cardiomegaly with small bilateral effusions with right lower lobe atelectasis or infiltrate Dictated by: Danny Bilateral lower extremity arteriogram with runoff 03/29/2020: ANGIOGRAPHIC RESULTS The distal abdominal aorta is normal. The bilateral common iliac arteries have mild [id number] atheromatous plaque. The bilateral internal iliac arteries are widely patent. The bilateral external iliac arteries are widely patent. The bilateral common femoral arteries are normal. The bilateral profunda femoris arteries are normal. The right superficial femoral artery is moderately externally calcified with 30% stenosis in the proximal segment 40 and 50% tandem stenoses in the distal SFA and proximal popliteal artery at Americo's canal. There is an additional 50% mid vessel stenosis in the right popliteal artery. At the infrageniculate level the popliteal artery is occluded. There are very small scant collaterals which collateralized the peroneal artery which makes it 5 cm proximal to the right foot. This vascularity at the infrageniculate level is very small in caliber with very scant collaterals all consistent with severe small vessel diffuse vasculopathy The left superficial femoral artery is widely patent with mild to moderate [id number] stenoses in the proximal mid and distal segment. At Americo's canal there is a 40% stenosis transitioning into the popliteal artery. An additional mid vessel 40 to 50% stenosis is identified at the midportion and at the distal aspect of the popliteal artery is a 90% focal stenosis. Distal to this 90% stenosis or patent peroneal arteries and a posterior tibialis artery. These are very small caliber and size. The anterior tibialis artery is proximally subtotally occluded and then re-reconstitutes in the proximal segment via a very small caliper collaterals. The anterior tibialis artery appears to become subtotally occluded at mid calf and then reconstitutes in a very small scant vessel as a dorsalis pedis artery. The popliteal artery at the 90% stenosis is small approximately 2 to 3 mm in diameter IMPRESSION Peripheral artery disease as described above most notably severe small vessel diffuse infrageniculate disease all consistent with severe small ves
[2020-03-30 09:47] VITALS: PULSE 77; RESP 18; O2SAT 94
--- NOTE | 2020-03-30 10:21 | HMH.PNCARD ---
Subjective Date: 03/30/20 Time: 10:15 Principal diagnosis: Right foot DM ulcers Interval history: This is a 74-year-old gentleman status post lower extremity runoff. This showed severe small vessel diffuse infrageniculate disease all consistent with small vessel vasculopathy. Denies any chest pain or pressure. He denies any shortness of breath or edema. He denies any fever, chills, nausea, vomiting, diarrhea, PND or orthopnea. He states he is feeling very well and ready to go home. Exam Vital signs and Labs for Last 24 Hours: Temp Pulse Resp BP Pulse Ox 98.2 F 77 18 138/68 94 L 03/30/20 07:55 03/30/20 09:47 03/30/20 09:47 03/30/20 07:55 03/30/20 09:47 Laboratory Results - last 24 hr 03/29/20 11:35: POC Glucose 103 03/29/20 17:00: POC Glucose 81 03/29/20 20:24: POC Glucose 118 H 03/30/20 05:14: POC Glucose 105 03/30/20 06:58: WBC 7.0, RBC 3.43 L, Hgb 9.8 L, Hct 30.7 L, MCV 89.5, MCH 28.6, MCHC 32.0, RDW 17.6 H, Plt Count 162, MPV 8.5, Neut % (Auto) 57.2, Lymph % (Auto) 25.6, Grainger % (Auto) 8.0, Eos % (Auto) 8.5, Baso % (Auto) 0.8, Neut # (Auto) 4.0, Lymph # (Auto) 1.8, Grainger # (Auto) 0.6, Eos # (Auto) 0.6 H, Baso # (Auto) 0.1 03/30/20 06:58: Sodium 136, Potassium 3.7, Chloride 85 L, Carbon Dioxide 46 H*, Anion Gap 8.7, BUN 13, Creatinine 0.60 L, Estimated Creat Clear 88, Estimated GFR 132, Est GFR ( Amer) 160, Glucose 99, Calcium 8.1 L I & O for Last 24 hours: Intake & Output 03/27/20 03/28/20 03/29/20 03/30/20 23:59 23:59 23:59 23:59 Intake Total 480 / 480 1914 / 2014 896 / 896 905 / 905 Output Total 350 / 350 675 / 675 890 / 890 600 / 600 Balance 130 / 130 1239 / 1339 6 / 6 305 / 305 Weight 199 lb 2 oz 205 lb 0.478 oz 204 lb 6.4 oz 208 lb 5 oz Microbiology Reports for the Last 24 Hours: Microbiology 03/27/20 09:51 Blood Blood Culture - Preliminary NO GROWTH AFTER 48 HOURS 03/27/20 09:51 Blood Blood Culture - Preliminary NO GROWTH AFTER 48 HOURS 03/27/20 07:47 Urine,Catheterized Urine Culture - Final Klebsiella pneumoniae ozaenae - Constitutional no acute distress, average body habitus - *Routine HEENT Exam Head: Present: normocephalic, atraumatic Eye: Present: EOMI, PERRL ENT: Present: mucous membranes moist - *Routine Neck Exam Present: supple, full ROM, normal carotid upstroke. Absent: JVD, carotid bruit, lymphadenopathy - *Routine Respiratory Exam Present: CTA bilaterally - *Routine Cardiovascular Exam Present: RRR, Normal S1, Normal S2. Absent: murmur - *Routine Abdominal Exam Present: soft, normoactive bowel sounds. Absent: tenderness, distended - *Routine Extremities Exam Present: full ROM, pulses intact. Absent: cyanosis, clubbing, edema - *Routine Skin Exam Present: pallor, warm, wounds. Absent: rash - *Routine Neurological Exam Present: alert, oriented X3, CN II-XII intact. Absent: sensory deficit, motor deficit Progress Note: A&P (1) PAD (peripheral artery disease) Status: Acute Current Visit: Yes (2) Diabetic ulcer of right foot associated with diabetes mellitus due to underlying condition Status: Acute Current Visit: Yes (3) Onychodystrophy Status: Acute Current Visit: Yes (4) Onychogryphosis Status: Acute Current Visit: Yes (5) Keratosis Status: Acute Current Visit: Yes (6) Diabetic foot Status: Acute Current Visit: Yes (7) Diabetic ulcer of toe of left foot associated with type 2 diabetes mellitus Status: Acute Current Visit: Yes (8) Hypoglycemia Status: Acute Current Visit: Yes (9) Automatic implantable cardiac defibrillator in situ Status: Chronic Current Visit: No (10) Coronary arteriosclerosis Status: Chronic Current Visit: No (11) Diabetes mellitus Status: Chronic Current Visit: No Assessment and Plan for All Diagnoses:: Plan: 1. Peripheral arterial disease is present.
[2020-03-30 11:39] VITALS: BP 148/79; PULSE 75; RESP 20; TEMP 37.1; O2SAT 94
[2020-03-30 11:51] LABS: POC Glucose,Bedside 147 (70-110)
--- NOTE | 2020-03-30 13:21 | HMH.PHAINT ---
DISCHARGE COUNSELING COMPLETED ON PATIENT. NEW PRESCRIPTIONS INCLUDE XARELTO AND LEVAQUIN. THESE WERE SENT TO CLINIC PHARMACY. PATIENT IS TO CONTINUE ALL OTHER HOME MEDICATIONS. PATIENT'S VERBALIZED UNDERSTANDING AND HAD NO QUESTIONS AT THIS TIME. -HEBER PIRES, JODID
== END 2020-03-30 13:45 | disposition home health service (06) ==
LOC: ER 09:14 → 2ND 09:55
PROVIDERS: Family Medicine; Internal Medicine; Podiatrist; Admitting Provider Emergency Medicine; Emergency Provider Emergency Medicine; PCP Nurse Practitioner Family; Visit Provider Emergency Medicine
DX: E11.51 Type 2 diabetes mellitus with diabetic peripheral angiopathy without gangrene (principal); N39.0 Urinary tract infection, site not specified; E11.621 Type 2 diabetes mellitus with foot ulcer; L97.512 Non-pressure chronic ulcer of other part of right foot with fat layer exposed; I25.10 Atherosclerotic heart disease of native coronary artery without angina pectoris; I25.810 Atherosclerosis of coronary artery bypass graft(s) without angina pectoris; L97.521 Non-pressure chronic ulcer of other part of left foot limited to breakdown of skin; I70.25 Atherosclerosis of native arteries of other extremities with ulceration; Z79.4 Long term (current) use of insulin; I25.83 Coronary atherosclerosis due to lipid rich plaque
CPT/HCPCS: 36247; 36415; 71045; 73630; 75716; 80048; 80053; 81001; 82962; 83605; 84484; 85025; 85651; 86140; 86328; 87040; 87086; 87088; 87186; 93005; 93923; 96365; 96367; 96372; 96375; 99152; 99285; C1769; C1894; G0378; J1335; J1610; J1644; J2405; Q9966

== ENCOUNTER → 2020-04-12 15:04 | Outpatient (CLI) | payer MEDICARE, MEDICAID, SELFPAY ==
[2020-04-12 15:24] LABS: Basophils # 0.1 K/mm3 (0-0.2); Basophils % 0.9 % (0.1-2.0); Eosinophils # 0.7 K/mm3 (0.0-0.4); Eosinophils % 10.2 % (0.1-12.0); Hematocrit 37.9 % (42.0-52.0); Hemoglobin 12.1 g/dL (14.1-18.0); Lymphocytes # 1.4 K/mm3 (0.7-4.5); Lymphocytes % 20.8 % (10-50); Mean Corpuscular HGB Conc 31.8 g/dL (31.8-35.4); Mean Corpuscular Hemoglobin 28.7 pg (27.0-31.2); Mean Corpuscular Volume 90.1 fl (80-94); Mean Platelet Volume 7.9 fl (7.4-10.4); Monocytes # 0.4 K/mm3 (0.1-1.0); Monocytes % 5.8 % (1.7-9.3); Neutrophils # 4.1 K/mm3 (1.8-7.8); Neutrophils % 62.2 % (37.0-80.0); Platelet Count 200 K/mm3 (142-424); Red Blood Count 4.21 M/mm3 (4.60-6.20); Red Cell Distribution Width 16.7 % (11.5-17.5); White Blood Count 6.6 K/mm3 (4.8-10.8)
[2020-04-12 16:31] LABS: Chloride 94 mmol/L (98-107)
[2020-04-12 16:32] LABS: Potassium 4.2 mmoL/L (3.5-5.1); Sodium 141 mmol/L (136-145)
[2020-04-12 16:34] LABS: Blood Urea Nitrogen 12 mg/dl (9-20); Estimated Glomerular Filt Rate 111 ml/min (>60); GFR (African American) 134 ML/MIN (>60)
[2020-04-12 16:35] LABS: Calcium 9.6 mg/dl (8.4-10.2); Glucose 151 mg/dl (74-100)
[2020-04-12 16:42] LABS: Anion Gap 13.2 mEq/L (5-15); Carbon Dioxide 38 mmol/L (22.0-30.0)
== END ==
PROVIDERS: Visit Provider Urology
DX: E78.5 Hyperlipidemia, unspecified (principal); I25.10 Atherosclerotic heart disease of native coronary artery without angina pectoris; I50.20 Unspecified systolic (congestive) heart failure; I50.23 Acute on chronic systolic (congestive) heart failure; I50.9 Heart failure, unspecified; R06.00 Dyspnea, unspecified; Z95.1 Presence of aortocoronary bypass graft; Z95.810 Presence of automatic (implantable) cardiac defibrillator; I11.0 Hypertensive heart disease with heart failure
CPT/HCPCS: 36415; 80048; 85025

== ENCOUNTER 2020-04-27 13:44 | Outpatient (RCR) | payer MEDICARE, MEDICAID, SELFPAY ==
--- NOTE | 2020-04-27 16:09 | HMH.PTOPWND ---
Rehab Outpt Wound Evaluation Rehab OP Wound Evaluation Start: 04/27/20 14:09 Freq: Status: Active Protocol: Document 04/27/20 15:56 JENNIFER (Rec: 04/27/20 16:09 PHORNE [id number]) Electronically Signed By Izaiah Galindo, PT 04/27/20 15:56 Subjective/History History History Pt is 74 yowm who presents with multiple wounds to B feet , R worse than L x 3-4 mos. He reports these wounds began when he was in a nsg home and became unable to walk due to inactivity. He has PMH of CAD, PA, PAD, DM-II, CCY, pacemaker, and internal defibrilator. His last A1c was 7.3% in 09/2019. Recent B LE angiogram showed very poor circulation on B LE from knees distally and no interventions were able to be performed due to the extent of the arterial stenosis. Subjective Subjective Pt reports numbness of the toes on B feet, but otherwise sensation is intact. Wound Eval Wound Right Lateral Heel Wound Type Pressure Ulcer Wound Staging Unstageable Query Text:Stage I - Unbroken, red skin, no blanching. Stage II - Skin broken, superficial skin loss involving epidermis alone or also dermis. Partial loss of skin layers. Stage III - Pressure area involves epidermis, dermis and subcutaneous tissue, full thickness skin loss. Stage IV - Pressure area involves epidermis, subcutaneous tissue, bone and other supportive tissue. Full thickness skin loss with extensive destruction of underlying tissue and structures. Wound Length (cm) 1.9 Wound Width (cm) 2.0 Wound Bed Appearance Eschar Percentage of Eschar (Black) (%) 100 Wound Margins Description Well Defined Drainage Description None Drainage Amount None Primary Dressing Composite Wound Debridement Method Sharps,Forceps,Gauze Wound Debridement Amount of Tissue Minimal Removed Dressing Change Patient Tolerance Tolerated Well Right Lateral Toe - 5th Digit Wound Type Diabetic Foot Ulcer Is This a Chronic Wound Yes Wound Length (cm) 1.0 Wound Width
== END 2020-04-27 13:50 | disposition home or self-care (01) ==
LOC: PT 13:44
PROVIDERS: Visit Provider Podiatrist
DX: L97.521 Non-pressure chronic ulcer of other part of left foot limited to breakdown of skin (principal); L97.511 Non-pressure chronic ulcer of other part of right foot limited to breakdown of skin; E08.621 Diabetes mellitus due to underlying condition with foot ulcer; Z79.4 Long term (current) use of insulin
CPT/HCPCS: 97163

== ENCOUNTER → 2020-04-28 17:12 | Outpatient (CLI) | payer MEDICARE, MEDICAID, SELFPAY | PROVIDERS: Visit Provider Podiatrist | DX: E11.621 Type 2 diabetes mellitus with foot ulcer (principal); Z79.4 Long term (current) use of insulin | CPT/HCPCS: 87070; 87077; 87186; 87205 ==

== ENCOUNTER → 2020-05-19 15:45 | Outpatient (CLI) | payer MEDICARE, MEDICAID, SELFPAY ==
[2020-05-19 16:19] LABS: Basophils # 0.1 K/mm3 (0-0.2); Eosinophils % 11.9 % (0.1-12.0); Hematocrit 38.7 % (42.0-52.0); Hemoglobin 11.8 g/dL (14.1-18.0); Lymphocytes # 1.6 K/mm3 (0.7-4.5); Lymphocytes % 19.4 % (10-50); Mean Corpuscular HGB Conc 30.4 g/dL (31.8-35.4); Mean Platelet Volume 8.1 fl (7.4-10.4); Monocytes # 0.5 K/mm3 (0.1-1.0); Monocytes % 6.1 % (1.7-9.3); Neutrophils % 61.6 % (37.0-80.0); Platelet Count 201 K/mm3 (142-424); Red Blood Count 4.35 M/mm3 (4.60-6.20); Red Cell Distribution Width 16.9 % (11.5-17.5); White Blood Count 8.1 K/mm3 (4.8-10.8)
[2020-05-19 16:26] LABS: Hemoglobin A1C 5.7 % (4.0-6.0)
[2020-05-19 17:03] LABS: Alanine Aminotransferase 18 U/L (12-78); Albumin Level 3.8 g/dl (3.5-5.0); Albumin/Globulin Ratio 1.3 (1.1-1.8); Alkaline Phosphatase 96 U/L (38-126); Aspartate Amino Transferase 34 U/L (17-59); Bilirubin,Total 0.8 mg/dl (0.2-1.3); Blood Urea Nitrogen 16 mg/dl (9-20); Calcium 9.1 mg/dl (8.4-10.2); Chloride 84 mmol/L (98-107); Estimated Glomerular Filt Rate 111 ml/min (>60); GFR (African American) 134 ML/MIN (>60); Globulin 2.9 g/dL (1.3-3.2); Glucose 175 mg/dl (74-100); Potassium 3.1 mmoL/L (3.5-5.1); Sodium 141 mmol/L (136-145); Total Protein,Serum 6.7 g/dl (6.3-8.2)
[2020-05-19 17:08] LABS: C-Reactive Protein 7.2 mg/L (0-4)
[2020-05-19 17:11] LABS: Erythrocyte Sedimentation Rate 24 mm/hr (0-20)
[2020-05-19 17:59] LABS: Anion Gap 10.1 mEq/L (5-15); Carbon Dioxide 50 mmol/L (22.0-30.0)
== END ==
PROVIDERS: Visit Provider Podiatrist
DX: Z51.89 Encounter for other specified aftercare (principal); E16.2 Hypoglycemia, unspecified
CPT/HCPCS: 36415; 80053; 83036; 85025; 85651; 86140

== ENCOUNTER 2020-05-31 15:29 | Emergency (ER) | payer MEDICARE, MEDICAID, SELFPAY ==
[2020-05-31 15:46] VITALS: BP 170/82; PULSE 78; RESP 17; TEMP 36.7; O2SAT 99; BMI 27.1
--- NOTE | 2020-05-31 15:50 | XR_ITS ---
PROCEDURE: XR CHEST PORTABLE CLINICAL HISTORY: sob Shortness of breath COMPARISON: CT CT ANGIO CHEST from 01/27/2020 CR XR CHEST PORTABLE from 02/10/2020 CR XR CHEST PORTABLE from 02/16/2020 CR XR CHEST PORTABLE from 03/27/2020 FINDINGS: Prior CABG with bipolar pacemaker. There is cardiomegaly without failure. There is right lower lobe consolidation with effusion. Small effusion is present in the left lower lobe is well. No acute bony abnormalities. IMPRESSION: Right lower lobe pneumonia with effusion with small left effusion also Dictated by: Coleman Delgado MD 05/31/2020 16:26 Coleman Delgado MD in [facility] 05/31/2020 16:26
[2020-05-31 15:51] VITALS: O2SAT 97
--- NOTE | 2020-05-31 15:57 | [facility].EDGENADL ---
ED Disposition Clinical Impression: COPD (chronic obstructive pulmonary disease) Qualifiers: COPD type: unspecified COPD Qualified Code(s): J44.9 - Chronic obstructive pulmonary disease, unspecified Pneumonia Qualifiers: Pneumonia type: due to unspecified organism Laterality: right Lung location: lower lobe of lung Qualified Code(s): J18.9 - Pneumonia, unspecified organism Disposition: Home, Self-Care Condition on Discharge: Good Instructions: DI for Chronic Obstructive Pulmonary Disease, DI for Pneumonia -- Adult Additional Instructions: Levaquin as prescribed. Follow-up with Dr. Nugent in his office, call tomorrow to make appointment. Return to the emergency department if worsening shortness of breath, fever greater than 100 degrees. Prescriptions: levoFLOXacin [Levaquin 500mg tab] 500 mg PO DAILY #9 tab Transmission Status: Pending to [id number] Referrals: Nitesh Nugent MD [Primary Care Provider] - - Critical Care Critical Care Time: No Attestation: On 05/31/20, the high probability of a clinically significant, sudden or life threatening deterioration of the following system(s) required my full and direct attention, intervention and personal management. The time I documented below is in addition to time spent performing reported procedures but includes the following listed in this critical care notation. Medical Decision Making - Medical Records Medical records reviewed: Yes: I reviewed the patient's medical records. MR Comment: Prior chemistry profile was reviewed. Since January it looks like his CO2 on a chemistry profile has run between 40 and 60. - Alexandro Inquiry Pt receiving controlled substance: No Vital Signs: 05/31/20 15:46 05/31/20 15:51 05/31/20 16:24 Temperature 98.1 F Temperature Source Oral Pulse Rate [Right Radial] 78 72 Respiratory Rate 17 18 Blood Pressure [Right Arm] 170/82 H 156/95 H Blood Pressure Mean [Right Arm] 111 115 Blood Pressure Source [Right Arm] Automatic Cuff Blood Pressure Position [Right Arm] Sitting 02 Sat by Pulse Oximetry 99 97 100 Oxygen Delivery Method Room Air Nasal Cannula Nasal Cannula Oxygen Flow Rate (LPM) 2 2 - Lab Data Lab results reviewed: Yes: I reviewed the patient's lab results. Lab Results 05/31/20 15:50: Specimen Source L brachial, O2 % 2lpm, ABG pH 7.36, ABG pCO2 67.0 H, ABG pO2 100.0, ABG HCO3 37.2 H, ABG Total CO2 39.2 H, ABG O2 Saturation 98, ABG Base Excess 11.8 H 05/31/20 16:48: WBC 7.4, RBC 4.19 L, Hgb 11.6 L, Hct 36.8 L, MCV 87.8, MCH 27.7, MCHC 31.6 L, RDW 16.8, Plt Count 182, MPV 9.0, Neut % (Auto) 64.9, Lymph % (Auto) 18.3, [place] % (Auto) 6.0, Eos % (Auto) 10.2, Baso % (Auto) 0.7, Neut # (Auto) 4.8, Lymph # (Auto) 1.4, [place] # (Auto) 0.4, Eos # (Auto) 0.8 H, Baso # (Auto) 0.1 05/31/20 16:48: Sodium 136, Potassium 3.3 L, Chloride 85 L, Carbon Dioxide 44 H*, Anion Gap 10.3, BUN 14, Creatinine 0.70, Estimated Creat Clear 82, Estimated GFR 111, Est GFR ( Amer) 134, Glucose 143 H, Calcium 8.9, Total Bilirubin 0.8, AST 35, ALT 16, Alkaline Phosphatase 86, Total Protein 6.4, Albumin 3.6, Globulin 2.8, Albumin/Globulin Ratio 1.3 Result diagrams: 05/31/20 16:48 05/31/20 16:48 - Radiology Data #1 Image(s): Chest Image Reviewed: Yes I have reviewed radiologist's interpretation PROCEDURE: XR CHEST PORTABLE CLINICAL HISTORY: sob Shortness of breath COMPARISON: CT CT ANGIO CHEST from 01/27/2020 CR XR CHEST PORTABLE from 02/10/2020 CR XR CHEST PORTABLE from 02/16/2020 CR XR CHEST PORTABLE from 03/27/2020 FINDINGS: Prior CABG with bipolar pacemaker. There is cardiomegaly without failure. There is right lower lobe consolidation with effusion. Small effusion is present in the left lower lobe is well. No acute bony abnormalities. IMPRESSION: Right lower lobe pneumonia with effusion with small left effusion also Dictated by: Coleman Delgado MD 05/31/2020 16:26 Coleman Delgado MD
[2020-05-31 16:08] LABS: ABG Base Excess 11.8 mmol/L (-2.4-2.3); ABG HCO3 37.2 mmhg (22.0-26.0); ABG Oxygen Saturation 98 % (90-100); ABG PH 7.36 mmol/L (7.35-7.45); ABG TCO2 39.2 mmhg (23-27)
[2020-05-31 16:09] LABS: Oxygen 2LPM %; Source L BRACHIAL
--- NOTE | 2020-05-31 16:10 | PC.NURSE ---
ER notified of pt ABG results called by RT
[2020-05-31 16:24] VITALS: BP 156/95; PULSE 72; RESP 18; O2SAT 100
[2020-05-31 16:58] LABS: Basophils # 0.1 K/mm3 (0-0.2); Basophils % 0.7 % (0.1-2.0); Eosinophils # 0.8 K/mm3 (0.0-0.4); Eosinophils % 10.2 % (0.1-12.0); Hematocrit 36.8 % (42.0-52.0); Hemoglobin 11.6 g/dL (14.1-18.0); Lymphocytes # 1.4 K/mm3 (0.7-4.5); Lymphocytes % 18.3 % (10-50); Mean Corpuscular HGB Conc 31.6 g/dL (31.8-35.4); Mean Corpuscular Hemoglobin 27.7 pg (27.0-31.2); Mean Corpuscular Volume 87.8 fl (80-94); Monocytes # 0.4 K/mm3 (0.1-1.0); Neutrophils # 4.8 K/mm3 (1.8-7.8); Neutrophils % 64.9 % (37.0-80.0); Platelet Count 182 K/mm3 (142-424); Red Blood Count 4.19 M/mm3 (4.60-6.20); Red Cell Distribution Width 16.8 % (11.5-17.5); White Blood Count 7.4 K/mm3 (4.8-10.8)
[2020-05-31 17:04] LABS: Chloride 85 mmol/L (98-107); Potassium 3.3 mmoL/L (3.5-5.1); Sodium 136 mmol/L (136-145)
[2020-05-31 17:06] LABS: Blood Urea Nitrogen 14 mg/dl (9-20); Creatinine Clearance Estimated 82 mL/min (50-200); Estimated Glomerular Filt Rate 111 ml/min (>60); GFR (African American) 134 ML/MIN (>60)
[2020-05-31 17:07] LABS: Alanine Aminotransferase 16 U/L (12-78); Albumin Level 3.6 g/dl (3.5-5.0); Albumin/Globulin Ratio 1.3 (1.1-1.8); Alkaline Phosphatase 86 U/L (38-126); Aspartate Amino Transferase 35 U/L (17-59); Bilirubin,Total 0.8 mg/dl (0.2-1.3); Calcium 8.9 mg/dl (8.4-10.2); Globulin 2.8 g/dL (1.3-3.2); Glucose 143 mg/dl (74-100); Total Protein,Serum 6.4 g/dl (6.3-8.2)
[2020-05-31 17:16] LABS: Anion Gap 10.3 mEq/L (5-15); Carbon Dioxide 44 mmol/L (22.0-30.0)
--- NOTE | 2020-05-31 18:09 | PC.NURSE ---
Dr Jacobo talking to Dr Nugent
[2020-05-31 18:46] VITALS: BP 148/75; PULSE 70; RESP 18; TEMP 36.7; O2SAT 100
== END 2020-05-31 18:51 | disposition home or self-care (01) ==
PROVIDERS: Emergency Provider Emergency Medicine; PCP Emergency Medicine
DX: J18.9 Pneumonia, unspecified organism (principal); J44.9 Chronic obstructive pulmonary disease, unspecified; E11.65 Type 2 diabetes mellitus with hyperglycemia; E78.5 Hyperlipidemia, unspecified; I10 Essential (primary) hypertension; I25.2 Old myocardial infarction; Z95.0 Presence of cardiac pacemaker; I25.10 Atherosclerotic heart disease of native coronary artery without angina pectoris; Z87.891 Personal history of nicotine dependence
CPT/HCPCS: 36415; 71045; 80053; 82803; 85025; 99283

== ENCOUNTER → 2020-06-24 16:59 | Outpatient (CLI) | payer MEDICARE, MEDICAID, SELFPAY ==
[2020-06-24 18:20] LABS: Basophils # 0.1 K/mm3 (0-0.2); Basophils % 0.8 % (0.1-2.0); Eosinophils # 0.5 K/mm3 (0.0-0.4); Eosinophils % 8.2 % (0.1-12.0); Hemoglobin 11.9 g/dL (14.1-18.0); Lymphocytes # 1.4 K/mm3 (0.7-4.5); Lymphocytes % 23.9 % (10-50); Mean Corpuscular HGB Conc 30.4 g/dL (31.8-35.4); Mean Corpuscular Volume 88.8 fl (80-94); Monocytes # 0.5 K/mm3 (0.1-1.0); Monocytes % 8.3 % (1.7-9.3); Neutrophils # 3.3 K/mm3 (1.8-7.8); Neutrophils % 58.8 % (37.0-80.0); Platelet Count 158 K/mm3 (142-424); Red Blood Count 4.39 M/mm3 (4.60-6.20); Red Cell Distribution Width 16.6 % (11.5-17.5); White Blood Count 5.6 K/mm3 (4.8-10.8)
== END ==
PROVIDERS: Visit Provider Nurse Practitioner Family
DX: E16.2 Hypoglycemia, unspecified (principal)
CPT/HCPCS: 85025

== ENCOUNTER 2020-07-16 05:39 | Emergency (ER) | payer MEDICARE, MEDICAID, SELFPAY ==
[2020-07-16 05:53] VITALS: BMI 22.8
--- NOTE | 2020-07-16 06:06 | [facility].EDGENADL ---
ED Disposition Clinical Impression: Cardiac arrest Disposition: Condition on Discharge: Serious Referrals: PCP,No [Non-Staff] - - Critical Care Critical Care Time: Yes Attestation: On 07/16/20, the high probability of a clinically significant, sudden or life threatening deterioration of the following system(s) required my full and direct attention, intervention and personal management. The time I documented below is in addition to time spent performing reported procedures but includes the following listed in this critical care notation. Total Critical Care Time: 38 Vital system(s) involved:: Circulatory Failure, Respiratory Failure My critical care processes included: Assessment & monitoring of V/S, Initial and Re-exams, Coordinating Care, Medication Orders and management, Documentation Probable Cause of : Cardiac arrest Medical Decision Making - Medical Records Medical records reviewed: Yes: I reviewed the patient's medical records. - Alexandro Inquiry Pt receiving controlled substance: No Medical Decision Narrative: Patient is a 74 year old male who presents in cardiac arrest. 7 minute downtime before CPR was started by EMS. On arrival patients glucose is 148. CPR in progress with LMA in place. PEA on pulse check. Patient was given 2 rounds of epinephrine and ACLS protocol was followed. Due to patients prolonged downtime and comorbidities the decision was made that further action would be futule. Time of was called at 0549. Patients daughter and informed by myself. General Adult HPI - General Stated complaint: Code Time Seen by Provider: 07/16/20 05:45 Mode of Arrival: EMS - History of Present Illness HPI narrative: The patient is a 74 year old male with unknown past medical history who presents as a code blue. History is limited and obtained from EMS. Patient's reportedly heard the patient fall. When she got to him he was lying face down in a pool of blood. She was not sure if he was breathing. Per EMS, he was down 6-7 minutes before they got there. When they got there he was pulseless and apneic, but because he had a warm core temperature they started CPR and placed an LMA. On arrival patient is being bagged and chest compressions are in progress. No other history is able to be obtained. - Related Data Home Medications Medication Instructions Recorded Confirmed Fluticasone Propionate [Flonase 1 spray NS DAILYP PRN 02/10/20 07/07/20 Allergy Relief NS] Multivitamin/Iron/Folic Acid 1 each PO DAILY 02/10/20 07/07/20 [Multi-Day Plus Iron Tablet] Aspirin 81 mg PO DAILY 02/16/20 07/07/20 ondansetron HCl 4 mg tablet 4 mg PO TIDP PRN 03/04/20 07/07/20 ferrous sulfate 325 mg (65 mg 325 mg PO DAILY 03/07/20 07/07/20 iron) tablet insulin glargine 100 unit/mL (3 37 unit SQ QPM ml 03/07/20 07/07/20 mL) subcutaneous pen nitroglycerin 0.3 mg sublingual 0.4 mg SUBLINGUAL Q5-15M PRN 04/29/20 07/07/20 tablet Atorvastatin Calcium [Lipitor 40mg 40 mg PO DAILY 05/31/20 07/07/20 Tab] Fluticasone/Vilanterol [Breo 1 inh INHALATION DAILY 05/31/20 07/07/20 Ellipta] Pantoprazole Sodium 40 mg PO DAILY 05/31/20 07/07/20 Rivaroxaban [Xarelto] 2.5 mg PO BID 05/31/20 07/07/20 Tamsulosin HCl 0.4 mg PO DAILY 05/31/20 07/07/20 Previous Rx's Medication Instructions Recorded carbidopa 10 mg-levodopa 100 mg 1 tab PO HS #90 tab 08/19/19 disintegrating tablet lisinopril 5 mg tablet 5 mg PO DAILY #90 tab 05/04/20 carvedilol 3.125 mg tablet 3.125 mg PO BID #180 tab 05/19/20 furosemide 80 mg tablet 80 mg PO DAILY #30 tab 06/24/20 gabapentin 600 mg tablet 600 mg PO QID 30 Days #120 tab 06/24/20 sucralfate 1 gram tablet See Rx Instructions .ROUTE 06/28/20 .COMPLEX #120 tablet collagenase clostridium histo. 250 1 applic TOPICAL DAILY PRN 30 Days 07/07/20 unit/gram topical ointment #30 g Allergies Allergy/AdvReac Type Severity Reaction Status Date / Time No Known Drug Allergies All
--- NOTE | 2020-07-16 06:26 | PC.NURSE ---
EMS reports was outside when she heard pt fall. When she entered the house pt was found face down in the floor. ACLS initiated by EMS. Estimated down time according to EMS was 7 minutes. 0537- 1mg Epi given in route by EMS 0539- Code Blue called 0540- Pt arrived. CPR in progress, LMA in place, right lung sounds present on auscultation. Pt PEA on monitor. 20g in left AC in place on arrival w/ 500ml bag of NS infusing. Pt cyanotic, no pulses present, pupils fixed at 6mm, blood present to both nares, Lac above right eye, bruising to lower abdomen below navel (softball sized). 0540-1mg Epi given. Finger stick 148 0544- Pulse check negative carotid and femoral, PEA on monitor- CPR continued. MD attempting to replace LMA w/ ETT. 0545- 1mg Epi given 0547- Pulse check negative carotid and femoral, PEA on monitor. 0548- 1mg Epi given 0549- TOD PEA on monitor, absent pulse. 0550- Family notified. Post mortem care proved by staff. 0620- ANTHONY notified. ANTHONY did not rule of donation and they will attempt to call back in 30 min to make contact with family. This RN spoke with Gayatri Louis.
--- NOTE | 2020-07-16 07:54 | PC.NURSE ---
Issac Rhoades in department at this time.
--- NOTE | 2020-07-16 07:55 | PC.NURSE ---
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
--- NOTE | 2020-07-16 08:00 | PC.NURSE ---
pt Linda speaking with Pt critical care paramedic from [facility] at this time.
--- NOTE | 2020-07-16 08:20 | PC.NURSE ---
contacted ANTHONY back to see about donation, spoke with Minerva, states pt was going to speak with her daughter about donation.
--- NOTE | 2020-07-16 08:22 | PC.NURSE ---
Minerva from [facility] spoke with Dagoberto at this time, he is going to transport pt to their facility pending donation decision from pt family.
[2020-07-16 08:30] VITALS: BP 0/0; PULSE 0; RESP 0; TEMP -17.7; TEMP 0; O2SAT 0
[2020-07-20 08:50] LABS: POC Glucose,Bedside 148 (70-110)
== END 2020-07-16 08:30 | disposition expired ==
PROVIDERS: Emergency Provider Emergency Medicine; PCP Emergency Medicine
DX: I46.9 Cardiac arrest, cause unspecified (principal); I50.9 Heart failure, unspecified; J44.9 Chronic obstructive pulmonary disease, unspecified; I25.10 Atherosclerotic heart disease of native coronary artery without angina pectoris; E11.9 Type 2 diabetes mellitus without complications; E78.5 Hyperlipidemia, unspecified; I25.2 Old myocardial infarction; Z95.0 Presence of cardiac pacemaker; Z95.1 Presence of aortocoronary bypass graft; I10 Essential (primary) hypertension; Z79.899 Other long term (current) drug therapy; Z87.891 Personal history of nicotine dependence; Z90.49 Acquired absence of other specified parts of digestive tract
CPT/HCPCS: 71045; 82962; 99282